=== PATIENT | female | born 1995 | race Hispanic/Latino ===

== ENCOUNTER 2018-01-14 14:55 | Emergency (ER) | payer OTHER, SELFPAY ==
[2018-01-14] MEDS ORDERED: NA CHLORIDE 0.9% 1,000 ML ONE (15:48)
[2018-01-14 16:20] LABS: Protime INR 1.02
[2018-01-14 16:21] LABS: Absolute Monocytes 0.5 K/uL (0.1-1.3); Absolute Neutrophil 6.8 K/uL (1.8-8.0); Basophils % 0.2 % (0-1.3); Eosinophils % 0.2 % (0-4.4); Hematocrit 41.5 % (36.0-45.0); Lymphocytes % 21.3 % (15.3-44.8); MCH 32.5 pg (27.0-35.0); MCV 95.4 fL (80-100); MPV 8.3 fL (7.6-11.3); Monocytes % 5.5 % (3.3-12.3); RBC Red Blood Cell Count 4.35 M/uL (3.86-4.86)
[2018-01-14 16:33] LABS: Urine Bacteria <20 /HPF (<20); Urine Culture Reflex Order NOT NEEDED; Urine Mucus LIGHT /HPF (NONE SEEN); Urine RBC <5 /HPF (NONE SEEN)
[2018-01-14 16:49] LABS: ALT/SGPT 20 U/L (12-78); AST/SGOT 14 U/L (15-37); Albumin 3.9 g/dL (3.4-5.0); Alkaline Phosphatase 55 U/L (45-117); BUN Blood Urea Nitrogen 14 mg/dL (7-18); Bicarbonate 26 mmol/L (21-32); Bilirubin Direct 0.2 mg/dL (0-0.2); Bilirubin Total 0.9 mg/dL (0.2-1.0); Glucose Level 93 mg/dL (74-106); Magnesium 2.2 mg/dL (1.8-2.4); NT PRO-BNP 40 pg/mL (<125); Protein, Total 7.4 g/dL (6.4-8.2); Sodium Level 139 mmol/L (136-145); Troponin (Emerg Dept Use Only) < 0.02 ng/mL (0.0-0.045)
[2018-01-14 16:58] LABS: Urine Blood NEGATIVE (NEG); Urine Glucose NEGATIVE (NEG); Urine Protein TRACE (NEG); Urine Specific Gravity 1.025 (1.005-1.030)
--- NOTE | 2018-01-14 17:03 | EKG ---
Test Date: 2018-01-14 Test Time: 15:33:29 Care Manager Cna: TONIE-Claude MEASUREMENT RESULTS: Intervals: Rate: 72 MI: 134 QRSD: 76 QT: 382 QTc: 418 [place]: P: 42 MI: 134 QRS: 73 T: 43 INTERPRETIVE STATEMENTS: Normal sinus rhythm with sinus arrhythmia Normal ECG No previous ECG available for comparison Electronically Signed On 01-14-18 17:03:04 CDT by Santana Fatima
--- NOTE | 2018-01-14 17:30 | RAD REPORT ---
EXAM DESCRIPTION: CT - Chest For Pe Angio - 01/14/2018 5:16 pm CLINICAL HISTORY: Chest pain, shortness of breath COMPARISON: None. TECHNIQUE: Dynamically enhanced 3 mm thick images of the chest were obtained during administration o f approximately 150mL Isovue 370 IV contrast. Coronal and oblique MIP reconstruction images were gene rated and reviewed. Exam utilizes a protocol to evaluate the pulmonary arterial tree. All CT scans are performed using dose optimization technique as appropriate and may include automated exposure control or mA/KV adjustment according to patient size. FINDINGS: No pulmonary emboli are identified. The aorta as imaged shows no acute or suspicious finding. No pericardial thickening or effusion. No infiltrate or mass in the lung parenchyma. No pleural effusion or pleural thickening. No mediastinal or hilar suspicious masses. No chest wall masses or abnormal axillary lymphadenopathy. IMPRESSION: No pulmonary emboli identified. No other significant or suspicious findings.
--- NOTE | 2018-01-14 17:40 | ER ---
Nurse's Notes [facility] Name: Nataly Sparrow Age: 23 yrs Sex: Female : 1995 Arrival Date: 01/14/2018 Time: 14:58 Bed 12 Private MD: Diagnosis: Chest pain, unspecified Presentation: 01/14 15:14 Presenting complaint: Patient states: burning and pressure in the upper chest to the mg2 neck with shortness of breath and and is continuous for 1 1/2 week already. Transition of care: patient was not received from another setting of care. Onset of symptoms was January 2018. Risk Assessment: Do you want to hurt yourself or someone else? Patient reports no desire to harm self or others. Initial Sepsis Screen: Does the patient meet any 2 criteria? No. Patient's initial sepsis screen is negative. Does the patient have a suspected source of infection? No. Patient's initial sepsis screen is negative. Care prior to arrival: None. 15:14 Method Of Arrival: Ambulatory mg2 15:14 Acuity: BELKIS 3 mg2 Triage Assessment: 15:17 General: Appears in no apparent distress. comfortable, Behavior is calm, cooperative. mg2 Pain: Complains of pain in upper chest to the neck Pain does not radiate. Pain currently is 6 out of 10 on a pain scale. Quality of pain is described as burning, aching, pressure, Pain began gradually, 1 1/2 week ago Is continuous. EENT: No signs and/or symptoms were reported regarding the EENT system. Neuro: Cardiovascular: Capillary refill < 3 seconds Patient's skin is warm and dry. Respiratory: Airway is patent Respiratory effort is even, unlabored, Respiratory pattern is regular, symmetrical. GI: No signs and/or symptoms were reported involving the gastrointestinal system. : No signs and/or symptoms were reported regarding the genitourinary system. Derm: Skin is intact, is healthy with good turgor, Skin is pink, warm \T\ dry. normal. Musculoskeletal: Circulation, motion, and sensation intact. 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 - Social history:: Smoking status: Patient uses tobacco products, last cigar was 3 days ago, Patient uses alcohol, but reports only rare drinking. - Ebola Screening: : No symptoms or risks identified at this time. Screenin:17 Abuse screen: Denies threats or abuse. Denies injuries from another. Nutritional mg2 screening: No deficits noted. Tuberculosis screening: No symptoms or risk factors identified. Fall Risk None identified. Assessment: 16:04 General: Appears in no apparent distress. comfortable, Behavior is calm, cooperative. mg2 Pain: Complains of pain in chest Pain does not radiate. Pain currently is 6 out of 10 on a pain scale. Quality of pain is described as burning, pressure, Pain began gradually, Is intermittent. Neuro: Level of Consciousness is awake, alert, obeys commands, Oriented to person, place, time, situation. Cardiovascular: Capillary refill < 3 seconds Patient's skin is warm and dry. Respiratory: Airway is patent Respiratory effort is even, unlabored, Respiratory pattern is regular, symmetrical. Respiratory: Breath sounds are clear bilaterally. in chest. GI: No signs and/or symptoms were reported involving the gastrointestinal system. : No signs and/or symptoms were reported regarding the genitourinary system. Urine is clear. EENT: No signs and/or symptoms were reported regarding the EENT system. Derm: Skin is intact, is healthy with good turgor, Skin is pink, warm \T\ dry. normal. Musculoskeletal: No signs and/or symptoms reported regarding the musculoskeletal system. Vital Signs: 15:15 BP 128 / 90; Pulse 81; Resp 17; Temp 99(O); Pulse Ox 99% on R/A; Weight 61.23 kg; mg2 Height 5 ft. 4 in. (162.56 cm); Pain 6/10; 15:15 Body Mass Index 23.17 (61.23 kg, 162.56 cm) mg2 ED Course: 14:58 Patient arrived in ED. as 15:10 Misha Springer, ASNTO is Primary Nurse. mg2 15:13 Shanti Nelson FNP-C is PHCP. snw 15:13 Cesar Amos MD is Attending Physician. snw 15:15 Triage completed. mg2 15:17 Arm band placed on. mg2 15:38 EKG done, by pharmacy technician instructor. reviewed by Shanti SHIELDS. sm3 15:43 Radiology exam delayed due to lab results not completed at this time. (BUN/Creatinine) teresita test not completed at this time. 15:50 Patient has correct armband on for positive identification. Pulse ox on. NIBP on. mg2 15:50 No provider procedures requiring assistance completed. Inserted saline lock: 20 gauge mg2 in left antecubital area, using aseptic technique. Blood collected. Patient maintains SpO2 saturation greater than 95% on room air. 16:39 Radiology exam delayed due to lab results not completed at this time. test vr not completed at this time. 17:16 CT Chest For PE Angio In Process Unspecified. EDMS 17:53 IV discontinued, intact, bleeding controlled, No redness/swelling at site. Pressure mg2 dressing applied. Administered Medications: 15:49 Drug: NS 0.9% 1000 ml Route: IV; Rate: 1 bolus; Site: left antecubital; mg2 17:52 Follow up: Response: No adverse reaction; IV Status: Completed infusion mg2 Outcome: 17:40 Discharge ordered by MD. duncan 17:53 Discharged to home ambulatory, with family. mg2 17:53 Condition: stable 17:53 Discharge instructions given to patient, family, Instructed on discharge instructions, follow up and referral plans. medication usage, Demonstrated understanding of instructions, follow-up care, medications, Prescriptions given X 1. 18:09 Patient left the ED. mg2 Signatures: Dispatcher [employer] EDME Shanti Nelson FNP-C FNP-Amparo Ramírez Victoria vr Jordan, Nathan nj Gardose, Michele, SANTO RN [facility] [place] Sarai Saab 3
--- NOTE | 2018-01-14 17:40 | EDPHYS ---
Physician Documentation [facility] Name: Nataly Sparrow Age: 23 yrs Sex: Female : 1995 Arrival Date: 01/14/2018 Time: 14:58 Bed 12 Private MD: ED Physician Cesar Amos HPI: 01/14 15:46 This 23 yrs old Female presents to ER via Ambulatory with complaints of Chest snw Pain, Neck Pain, <24hrs Old. 15:46 Onset: The symptoms/episode began/occurred gradually, 1 week(s) ago. Associated signs snw and symptoms: Pertinent positives: chest pain, shortness of breath. The patient has not experienced similar symptoms in the past. It is unknown whether or not the patient has recently seen a physician. no med changes, occasional smoker, gave 9 months ago, denies lower ext edema. 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 - Social history:: Smoking status: Patient uses tobacco products, last cigar was 3 days ago, Patient uses alcohol, but reports only rare drinking. - Ebola Screening: : No symptoms or risks identified at this time. ROS: 15:43 Eyes: Negative for injury, pain, redness, and discharge, ENT: Negative for injury, snw pain, and discharge, Neck: Negative for injury, pain, and swelling. 15:43 Abdomen/GI: Negative for abdominal pain, nausea, vomiting, diarrhea, and constipation, Back: Negative for injury and pain, : Negative for injury, bleeding, discharge, and swelling, MS/Extremity: Negative for injury and deformity, Skin: Negative for injury, rash, and discoloration, Neuro: Negative for headache, weakness, numbness, tingling, and seizure. 15:43 Constitutional: Positive for malaise. 15:43 Cardiovascular: Positive for chest pain, of the chest. 15:43 Respiratory: Positive for pleurisy. Exam: 15:43 Head/Face: Normocephalic, atraumatic. Eyes: Pupils equal round and reactive to light, snw extra-ocular motions intact. Lids and lashes normal. Conjunctiva and sclera are non-icteric and not injected. Cornea within normal limits. Periorbital areas with no swelling, redness, or edema. ENT: Nares patent. No nasal discharge, no septal abnormalities noted. Tympanic membranes are normal and external auditory canals are clear. Oropharynx with no redness, swelling, or masses, exudates, or evidence of obstruction, uvula midline. Mucous membranes moist. Neck: Trachea midline, no thyromegaly or masses palpated, and no cervical lymphadenopathy. Supple, full range of motion without nuchal rigidity, or vertebral point tenderness. No Meningismus. Chest/axilla: Normal chest wall appearance and motion. Nontender with no deformity. No lesions are appreciated. Cardiovascular: Regular rate and rhythm with a normal S1 and S2. No gallops, murmurs, or rubs. Normal PMI, no JVD. No pulse deficits. Respiratory: Lungs have equal breath sounds bilaterally, clear to auscultation and percussion. No rales, rhonchi or wheezes noted. No increased work of breathing, no retractions or nasal flaring. Abdomen/GI: Soft, non-tender, with normal bowel sounds. No distension or tympany. No guarding or rebound. No evidence of tenderness throughout. Back: No spinal tenderness. No costovertebral tenderness. Full range of motion. Skin: Warm, dry with normal turgor. Normal color with no rashes, no lesions, and no evidence of cellulitis. MS/ Extremity: Pulses equal, no cyanosis. Neurovascular intact. Full, normal range of motion. Neuro: Awake and alert, GCS 15, oriented to person, place, time, and situation. Cranial nerves II-XII grossly intact. Motor strength 5/5 in all extremities. Sensory grossly intact. Cerebellar exam normal. Normal gait. Psych: Awake, alert, with orientation to person, place and time. Behavior, mood, and affect are within normal limits. 15:43 Constitutional: The patient appears alert, awake, anxious. Vital Signs: 15:15 BP 128 / 90; Pulse 81; Resp 17; Temp 99(O); Pulse Ox 99% on R/A; Weight 61.23 kg; mg2 Height 5 ft. 4 in. (162.56 cm); Pain 6/10; 15:15 Body Mass Index 23.17 (61.23 kg, 162.56 cm) mg2 MDM: 15:16 Patient medically screened. snw 17:38 Data reviewed: vital signs, nurses notes. Data interpreted: Pulse oximetry: on room air snw is 99 %. Interpretation: normal. Counseling: I had a detailed discussion with the patient and/or guardian regarding: the historical points, exam findings, and any diagnostic results supporting the discharge/admit diagnosis, the presence of at least one elevated blood pressure reading (>120/80) during this emergency department visit, lab results, radiology results, the need for outpatient follow up, to return to the emergency department if symptoms worsen or persist or if there are any questions or concerns that arise at home. Special discussion: Based on the patient's history, exam, and Dx evaluation, there is no indication for emergent intervention or inpatient Tx. It is understood by the patient/guardian that if the Sx's persist or worsen they need to return immediately for re-evaluation. Based on the history and exam findings, there is no indication for further emergent testing or inpatient evaluation. I discussed with the patient/guardian the need to see the primary care provider for further evaluation of the symptoms. 01/14 15:33 Order name: Urine Culture snw 01/14 15:33 Order name: Urine Microscopic Only; Complete Time: 16:42 snw 01/14 15:43 Order name: Basic Metabolic Panel; Complete Time: 16:58 snw 01/14 15:43 Order name: CBC with Diff; Complete Time: 16:32 snw 01/14 15:43 Order name: LFT's; Complete Time: 16:58 snw 01/14 15:43 Order name: Magnesium; Complete Time: 16:58 snw 01/14 15:33 Order name: CT Chest For PE Angio; Complete Time: 17:37 snw 01/14 15:43 Order name: NT PRO-BNP; Complete Time: 16:58 snw 01/14 15:43 Order name: PT-INR; Complete Time: 16:32 snw 01/14 15:43 Order name: Troponin (emerg Dept Use Only); Complete Time: 16:58 snw 01/14 15:45 Order name: TSH; Complete Time: 17:06 snw 01/14 16:23 Order name: Urine Dipstick--Ancillary (enter results); Complete Time: 17:06 bd 01/14 16:23 Order name: Urine --Ancillary (enter results); Complete Time: 17:06 bd 01/14 15:33 Order name: Urine Test (obtain specimen); Complete Time: 16:03 snw 01/14 15:33 Order name: Urine Dipstick-Ancillary (obtain specimen); Complete Time: 16:03 snw 01/14 15:43 Order name: EKG; Complete Time: 15:44 snw 01/14 15:43 Order name: Cardiac monitoring; Complete Time: 16:03 snw 01/14 15:43 Order name: EKG - Nurse/Tech; Complete Time: 16:03 snw 01/14 15:43 Order name: IV Saline Lock; Complete Time: 16:03 snw 01/14 15:43 Order name: Labs collected and sent; Complete Time: 16:03 snw 01/14 15:43 Order name: O2 Per Protocol; Complete Time: 16:03 snw 01/14 15:43 Order name: O2 Sat Monitoring; Complete Time: 16:03 snw Administered Medications: 15:49 Drug: NS 0.9% 1000 ml Route: IV; Rate: 1 bolus; Site: left antecubital; mg2 17:52 Follow up: Response: No adverse reaction; IV Status: Completed infusion mg2 Disposition: 01/15 07:04 Co-signature as Attending Physician, Cesar Amos MD I agree with the assessment and poncho plan of care. Disposition: 01/14/18 17:40 Discharged to Home. Impression: Chest pain, unspecified. - Condition is Stable. - Discharge Instructions: Nonspecific Chest Pain, Gastroesophageal Reflux Disease, Adult, Hypertension. - Prescriptions for Protonix 40 mg Oral Tablet - take 1 tablet by ORAL route once daily; 30 tablet. - Work release form, Medication Reconciliation Form, Thank You Letter, Antibiotic Education, Prescription Opioid Use form. - Follow up: Private Physician; When: 2 - 3 days; Reason: Recheck today's complaints, Continuance of care, Re-evaluation by your physician. Follow up: Emergency Department; When: As needed; Reason: Worsening of condition. Signatures: Dispatcher [employer] Cesar Nation MD MD cha Therrien, Shelly, SHRINK PIT OPERATOR-C SHRINK PIT OPERATOR-Csnw Gardose, Misha, RN RN mg2 Corrections: (The following items were deleted from the chart) 01/14 18:09 17:40 01/14/2018 17:40 Discharged to Home. Impression: Chest pain, unspecified. mg2 Condition is Stable. Forms are Medication Reconciliation Form, Thank You Letter, Antibiotic Education, Prescription Opioid Use. Follow up: Private Physician; When: 2 - 3 days; Reason: Recheck today's complaints, Continuance of care, Re-evaluation by your physician. Follow up: Emergency Department; When: As needed; Reason: Worsening of condition. snw
[2018-01-14 18:22] VITALS: BP 128/90; TEMP 99; O2SAT 99
== END 2018-01-14 18:09 | disposition home or self-care (01) ==
LOC: ER 14:55
DX: R07.9 Chest pain, unspecified (principal); Z72.0 Tobacco use
CPT/HCPCS: 36415; 71275; 80048; 80076; 81003; 81015; 81025; 83735; 83880; 84443; 84484; 85025; 85610; 87086; 87088; 93005; 96360; 96361; 99284; J7030; Q9967

== ENCOUNTER 2019-02-04 19:32 | Emergency (ER) | payer SELFPAY ==
--- NOTE | 2019-02-04 20:32 | RAD REPORT ---
EXAM DESCRIPTION: RAD - Chest Single View - 02/04/2019 8:18 pm CLINICAL HISTORY: Chest pain COMPARISON: None. TECHNIQUE: AP portable chest image was obtained 2015 hours . FINDINGS: Lungs are clear. Heart and vasculature are normal. No measurable pleural effusion and no p neumothorax. No acute bony abnormality seen. No acute aortic findings suspected. IMPRESSION: No acute cardiopulmonary process.
[2019-02-04] MEDS ORDERED: LORAZEPAM 1 MG TABLET ONE (20:33)
[2019-02-04 20:44] LABS: Barbiturates POSITIVE (NEGATIVE); Benzodiazepines NEGATIVE (NEGATIVE); Cocaine NEGATIVE (NEGATIVE); METHAMPHETAM NEGATIVE (NEGATIVE); Methadone NEGATIVE (NEGATIVE); Opiates NEGATIVE (NEGATIVE); Phencyclidine NEGATIVE (NEGATIVE); THC Cannibis NEGATIVE (NEGATIVE)
[2019-02-04 20:44] LABS: Absolute Lymphocytes (CBC) 2.7 K/uL (0.7-4.9); Basophils % 0.5 % (0-1.3); Hematocrit 41.1 % (36.0-45.0); Lymphocytes % 26.6 % (15.3-44.8); MPV 8.1 fL (7.6-11.3); Protime INR 1.05; RBC Red Blood Cell Count 4.39 M/uL (3.86-4.86)
[2019-02-04 20:58] LABS: ALT/SGPT 37 U/L (12-78); AST/SGOT 17 U/L (15-37); Albumin 4.2 g/dL (3.4-5.0); Alkaline Phosphatase 79 U/L (45-117); BUN Blood Urea Nitrogen 14 mg/dL (7-18); Bicarbonate 22 mmol/L (21-32); Bilirubin Direct 0.1 mg/dL (0-0.2); Bilirubin Total 0.4 mg/dL (0.2-1.0); Glucose Level 108 mg/dL (74-106); Magnesium 1.8 mg/dL (1.8-2.4); NT PRO-BNP 8 pg/mL (<125); Potassium 3.4 mmol/L (3.5-5.1); Sodium Level 140 mmol/L (136-145); Troponin (Emerg Dept Use Only) < 0.02 ng/mL (0.0-0.045)
--- NOTE | 2019-02-04 21:44 | ER ---
Nurse's Notes [facility] Name: Nataly Sparrow Age: 24 yrs Sex: Female : 1995 Arrival Date: 02/04/2019 Time: 19:34 Bed 4 Private MD: Diagnosis: Anxiety disorder, unspecified;Cellulitis of abdominal wall;Migraine, unspecified Presentation: 02/04 19:35 Presenting complaint: Patient states: "I've been having intermittent headaches since 2 cc3 weeks. Today I started to feel funny, I begin to have chest heaviness that started at 1200H this afternoon and both of my hands and feet have sharp tingling sensation since I got off from work at 4PM. I also got this wound on my right lower abdomen which I am not sure of if it's an insect bite" Patient denies weakness. Transition of care: patient was not received from another setting of care. Onset of symptoms was February 04, 2019. Risk Assessment: Do you want to hurt yourself or someone else? Patient reports no desire to harm self or others. Initial Sepsis Screen: Does the patient meet any 2 criteria? HR > 90 bpm. No. Patient's initial sepsis screen is negative. Does the patient have a suspected source of infection? Yes: Skin breakdown/wound. Care prior to arrival: None. 19:35 Method Of Arrival: Wheelchair cc3 19:35 Acuity: BELKIS 3 cc3 Triage Assessment: 19:35 General: Appears in no apparent distress. uncomfortable, Behavior is cooperative, cc3 anxious. Pain: Complains of pain in head, chest. Cardiovascular: Reports chest pain, since 1200H this afternoon. 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 - Social history:: Smoking status: Patient uses tobacco products, denies chronic smoking, but will smoke occasionally. - Ebola Screening: : No symptoms or risks identified at this time. Screenin:35 Abuse screen: Denies threats or abuse. Denies injuries from another. Nutritional cc3 screening: No deficits noted. Tuberculosis screening: No symptoms or risk factors identified. Fall Risk Ambulatory Aid- None/Bed Rest/Nurse Assist (0 pts). Gait- Normal/Bed Rest/Wheelchair (0 pts) Mental Status- Oriented to own ability (0 pts). Assessment: 20:02 General: Appears in no apparent distress. uncomfortable, Behavior is cooperative, jd3 appropriate for age, anxious, restless. Pain: Complains of pain in head Pain does not radiate. Quality of pain is described as pressure, sharp, throbbing, Pain began 2-3 days ago. Neuro: Level of Consciousness is awake, alert, obeys commands, Oriented to person, place, time, situation, Supervisor Of Officials are equal bilaterally Moves all extremities. Full function Gait is steady, Speech is normal, Facial symmetry appears normal, Pupils are PERRLA, Intact. Cardiovascular: Denies chest pain, Heart tones S1 S2 present Capillary refill < 3 seconds Patient's skin is warm and dry. Respiratory: Airway is patent Respiratory effort is even, unlabored, Respiratory pattern is symmetrical, tachypnea Breath sounds are clear bilaterally. Denies cough, shortness of breath. GI: Abdomen is round non-distended, Bowel sounds present X 4 quads. Abd is soft and non tender X 4 quads. Reports nausea, recent spider bite to right lower abdomen. : No signs and/or symptoms were reported regarding the genitourinary system. EENT: No signs and/or symptoms were reported regarding the EENT system. Derm: Skin is intact, Skin is dry, Skin is normal, Skin temperature is warm. Musculoskeletal: Circulation, motion, and sensation intact. Range of motion: intact in all extremities. 20:36 Reassessment: Patient appears in no apparent distress at this time. No changes from jd3 previously documented assessment. Patient and/or family updated on plan of care and expected duration. Pain level reassessed. Patient is alert, oriented x 3, equal unlabored respirations, skin warm/dry/pink. 21:22 Reassessment: Patient appears in no apparent distress at this time. Patient and/or jd3 family updated on plan of care and expected duration. Pain level reassessed. Patient is alert, oriented x 3, equal unlabored respirations, skin warm/dry/pink. pt reports less anxiety, reports continued head pain, provider notified, no new orders at this time. 22:55 Reassessment: Patient appears in no apparent distress at this time. Patient and/or jd3 family updated on plan of care and expected duration. Pain level reassessed. Patient is alert, oriented x 3, equal unlabored respirations, skin warm/dry/pink. report continued pain, provider notified, awaiting provider to discharge pt. 23:12 Reassessment: Patient appears in no apparent distress at this time. Patient and/or jd3 family updated on plan of care and expected duration. Pain level reassessed. Patient is alert, oriented x 3, equal unlabored respirations, skin warm/dry/pink. reported understanding of discharge instructions. Vital Signs: 19:35 BP 146 / 95; Pulse 108; Resp 20 S; Temp 98.3(O); Pulse Ox 100% on R/A; Weight 69.85 kg cc3 (R); Height 5 ft. 4 in. (162.56 cm) (R); Pain 8/10; 20:36 Pulse 73; Resp 16 S; Pulse Ox 98% on R/A; jd3 21:24 BP 125 / 82; Pulse 62; Resp 17 S; Pulse Ox 100% on R/A; Pain 8/10; jd3 23:13 BP 122 / 72; Pulse 72; Resp 17 S; Pulse Ox 100% on R/A; jd3 19:35 Body Mass Index 26.43 (69.85 kg, 162.56 cm) cc3 ED Course: 19:34 Patient arrived in ED. cf2 19:35 Arm band placed on right wrist. cc3 19:36 Ventura Renteria MD is Attending Physician. tw4 19:54 Triage completed. cc3 20:02 Jatin Bell, SANTO is Primary Nurse. jd3 20:09 Patient has correct armband on for positive identification. Placed in gown. Bed in low jd3 position. Call light in reach. Side rails up X 1. Adult w/ patient. campus monitor on. Pulse ox on. NIBP on. 20:09 Patient maintains SpO2 saturation greater than 95% on room air. jd3 20:16 XRAY Chest (1 view) In Process Unspecified. EDMS 20:30 Inserted saline lock: 22 gauge in right forearm, using aseptic technique. Blood oe collected. 22:56 No provider procedures requiring assistance completed. jd3 23:13 IV discontinued, intact, bleeding controlled, No redness/swelling at site. Pressure jd3 dressing applied. Administered Medications: 20:36 Drug: Ativan 1 mg Route: PO; jd3 21:30 Follow up: Response: No adverse reaction jd3 Outcome: 21:43 Discharge ordered by . echo 23:12 Discharged to home ambulatory, with family. jd3 23:12 Condition: stable 23:12 Discharge instructions given to patient, family, Instructed on discharge instructions, follow up and referral plans. medication usage, Demonstrated understanding of instructions, follow-up care, medications, Prescriptions given X 3. 23:14 Patient left the ED. jd3 Signatures: Dispatcher [employer] EDMS Shaka Wick Jonathon, RN RN jd3 Ventura Renteria MD MD tw4 Aby Pierre 3 Brian Hernandez cf2 Corrections: (The following items were deleted from the chart) 21:27 21:24 BP 120 / 79; Pulse 62bpm; Resp 17bpm; Spontaneous; Pulse Ox 100% RA; Pain 8/10; jd3 jd3
--- NOTE | 2019-02-04 21:44 | EDPHYS ---
Physician Documentation [facility] Name: Nataly Sparrow Age: 24 yrs Sex: Female : 1995 Arrival Date: 02/04/2019 Time: 19:34 Bed 4 Private MD: ED Physician Ventura Renteria HPI: 02/04 21:26 This 24 yrs old Female presents to ER via Wheelchair with complaints of Chest tw4 Pain. 21:26 The patient or guardian reports chest pain that is located primarily in the anterior tw4 chest wall. The pain does not radiate. The chest pain is described as sharp. Duration: The patient or guardian reports a single episode. Modifying factors: Pertinent positives: anxiety, lightheadedness, The symptoms are alleviated by nothing. the symptoms are aggravated by nothing. Severity of pain: At its worst the pain was mild in the emergency department the pain is unchanged. The patient has not experienced similar symptoms in the past. [employer]: 22:56 LMP N/A - Irregular menses jd3 Historical: - Allergies: 19:35 No Known Allergies; cc3 - PMHx: 19:35 None; cc3 - PSHx: 19:35 None; cc3 - Immunization history:: Adult Immunizations not up to date. - Social history:: Smoking status: Patient uses tobacco products, denies chronic smoking, but will smoke occasionally. - Ebola Screening: : No symptoms or risks identified at this time. ROS: 21:26 Constitutional: Negative for fever, chills, and weight loss, Eyes: Negative for injury, tw4 pain, redness, and discharge, Respiratory: Negative for shortness of breath, cough, wheezing, and pleuritic chest pain, Abdomen/GI: Negative for abdominal pain, nausea, vomiting, diarrhea, and constipation, Back: Negative for injury and pain, MS/Extremity: Negative for injury and deformity. 21:26 Cardiovascular: Positive for chest pain, Negative for edema, orthopnea, palpitations, paroxysmal nocturnal dyspnea. Exam: 21:26 Constitutional: This is a well developed, well nourished patient who is awake, alert, tw4 and in no acute distress. Head/Face: Normocephalic, atraumatic. Chest/axilla: Normal chest wall appearance and motion. Nontender with no deformity. No lesions are appreciated. Cardiovascular: Regular rate and rhythm with a normal S1 and S2. No gallops, murmurs, or rubs. Normal PMI, no JVD. No pulse deficits. Respiratory: Lungs have equal breath sounds bilaterally, clear to auscultation and percussion. No rales, rhonchi or wheezes noted. No increased work of breathing, no retractions or nasal flaring. Abdomen/GI: Soft, non-tender, with normal bowel sounds. No distension or tympany. No guarding or rebound. No evidence of tenderness throughout. Back: No spinal tenderness. No costovertebral tenderness. Full range of motion. MS/ Extremity: Pulses equal, no cyanosis. Neurovascular intact. Full, normal range of motion. Neuro: Awake and alert, GCS 15, oriented to person, place, time, and situation. Cranial nerves II-XII grossly intact. Motor strength 5/5 in all extremities. Sensory grossly intact. Cerebellar exam normal. Normal gait. Vital Signs: 19:35 BP 146 / 95; Pulse 108; Resp 20 S; Temp 98.3(O); Pulse Ox 100% on R/A; Weight 69.85 kg cc3 (R); Height 5 ft. 4 in. (162.56 cm) (R); Pain 8/10; 20:36 Pulse 73; Resp 16 S; Pulse Ox 98% on R/A; jd3 21:24 BP 125 / 82; Pulse 62; Resp 17 S; Pulse Ox 100% on R/A; Pain 8/10; jd3 23:13 BP 122 / 72; Pulse 72; Resp 17 S; Pulse Ox 100% on R/A; jd3 19:35 Body Mass Index 26.43 (69.85 kg, 162.56 cm) cc3 MDM: 19:37 Patient medically screened. 02/04 19:53 Order name: Basic Metabolic Panel; Complete Time: 21:24 02/04 21:24 Interpretation: Normal except: K 3.4; GLUC 108; GFR 86. 02/04 19:53 Order name: CBC with Diff; Complete Time: 21:24 02/04 21:25 Interpretation: Within normal limits. 02/04 19:53 Order name: LFT's; Complete Time: 21:24 02/04 21:24 Interpretation: Normal except: GLOB 3.8. 30 19:53 Order name: Magnesium; Complete Time: 21:24 [facility] 02/04 21:25 Interpretation: Within normal limits: MG 1.8. [facility] 02/04 19:53 Order name: NT PRO-BNP; Complete Time: 21:24 [facility] 02/04 21:25 Interpretation: Within normal limits: NT PRO-BNP 8. [facility] 02/04 19:53 Order name: PT-INR; Complete Time: 21:24 [facility] 02/04 21:25 Interpretation: Within normal limits: PT 12.4. [facility] 02/04 19:53 Order name: Troponin (emerg Dept Use Only); Complete Time: 21:24 [facility] 02/04 19:53 Order name: XRAY Chest (1 view); Complete Time: 21:24 [facility] 02/04 19:53 Order name: EKG; Complete Time: 19:54 [facility] 02/04 19:53 Order name: Cardiac monitoring; Complete Time: 20:09 [facility] 02/04 19:53 Order name: Urine Drug Screen; Complete Time: 21:24 [facility] 02/04 21:25 Interpretation: Normal except. [facility] 02/04 20:22 Order name: Urine Dipstick--Ancillary (enter results) [facility] 02/04 20:22 Order name: Urine --Ancillary (enter results) [facility] 02/04 19:53 Order name: EKG - Nurse/Tech; Complete Time: 20:09 [facility] 02/04 19:53 Order name: IV Saline Lock; Complete Time: 20:30 [facility] 02/04 19:53 Order name: Labs collected and sent; Complete Time: 20:30 [facility] 02/04 19:53 Order name: O2 Per Protocol; Complete Time: 20:09 [facility] 02/04 19:53 Order name: O2 Sat Monitoring; Complete Time: 20:09 [facility] Administered Medications: 20:36 Drug: Ativan 1 mg Route: PO; jd3 21:30 Follow up: Response: No adverse reaction jd3 Disposition: 02/04/19 21:43 Discharged to Home. Impression: Anxiety disorder, unspecified, Cellulitis of abdominal wall, Migraine, unspecified. - Condition is Stable. - Discharge Instructions: Panic Attacks, Cellulitis, Adult, Migraine Headache, Social Anxiety Disorder, Panic Attacks, [id number], Generalized Anxiety Disorder. - Prescriptions for Ativan 0.5 mg Oral Tablet - take 1 tablet by ORAL route every 8 hours As needed; 5 tablet. Cleocin 300 mg Oral Capsule - take 1 capsule by ORAL route every 6 hours for 10 days; 40 capsule. Fiorinal 50- 325-40 mg Oral Capsule - take 1 capsule by ORAL route every 4 hours As needed - not to exceed 6 capsules per day; 20 capsule. - Medication Reconciliation Form, Thank You Letter, Antibiotic Education, Prescription Opioid Use form. - Follow up: Private Physician; When: Upon discharge from the Emergency Department; Reason: Recheck today's complaints, Continuance of care. - Problem is new. - Symptoms have improved. Signatures: Dispatcher [employer] EDMS Jatin Bell RN RN jd3 Ventura Renteria MD MD tw4 Aby Pierre cc3 Corrections: (The following items were deleted from the chart) 23:07 21:43 02/04/2019 21:43 Discharged to Home. Impression: Anxiety disorder, unspecified. tw4 Condition is Stable. Forms are Medication Reconciliation Form, Thank You Letter, Antibiotic Education, Prescription Opioid Use. Follow up: Private Physician; When: Upon discharge from the Emergency Department; Reason: Recheck today's complaints, Continuance of care. Problem is new. Symptoms have improved. tw4 23:14 23:07 02/04/2019 21:43 Discharged to Home. Impression: Anxiety disorder, unspecified; jd3 Cellulitis of abdominal wall; Migraine, unspecified. Condition is Stable. Discharge Instructions: Panic Attacks, Social Anxiety Disorder, Panic Attacks, [id number], Generalized Anxiety Disorder. Prescriptions for Ativan 0.5 mg Oral Tablet - take 1 tablet by ORAL route every 8 hours As needed; 5 tablet. and Forms are Medication Reconciliation Form, Thank You Letter, Antibiotic Education, Prescription Opioid Use. Follow up: Private Physician; When: Upon discharge from the Emergency Department; Reason: Recheck today's complaints, Continuance of care. Problem is new. Symptoms have improved. tw4
[2019-02-04 21:51] LABS: Urine Blood TRACE (NEG); Urine Glucose NEGATIVE (NEG); Urine Protein NEGATIVE (NEG); Urine Specific Gravity 1.025 (1.005-1.030)
[2019-02-04 23:36] VITALS: O2SAT 100
[2019-02-04 23:37] VITALS: TEMP 98.3
[2019-02-04 23:38] VITALS: BP 122/72
--- NOTE | 2019-02-05 09:58 | EKG ---
Test Date: 2019-02-04 Test Time: 20:01:47 Hvac Mechanical Engineer: IAN MEASUREMENT RESULTS: Intervals: Rate: 82 HI: 142 QRSD: 82 QT: 366 QTc: 427 [place]: P: 66 HI: 142 QRS: 91 T: 40 INTERPRETIVE STATEMENTS: Normal sinus rhythm with sinus arrhythmia Rightward axis Borderline ECG Compared to ECG 01/14/2018 15:33:29 Right-axis deviation now present Electronically Signed On 02-05-19 09:57:10 CDT by Hans Camarena
== END 2019-02-04 23:14 | disposition home or self-care (01) ==
LOC: ER 19:32
DX: F41.9 Anxiety disorder, unspecified (principal); L03.311 Cellulitis of abdominal wall; G43.909 Migraine, unspecified, not intractable, without status migrainosus; Z72.0 Tobacco use
CPT/HCPCS: 36415; 71045; 80048; 80076; 80307; 81003; 81025; 83735; 83880; 84484; 85025; 85610; 93005; 99285

== ENCOUNTER 2021-09-29 19:34 | Inpatient (IN) | payer OTHER, SELFPAY ==
--- OUTSIDE RECORDS SUMMARY | 2021-09-29 19:39 | XMS REPORT | Continuity of Care Document ---
:1995 Author Organization [facility] t Address [address] [place] [address] Care Team Providers Name Role Phone WALT RODRIGUEZ Attending Clinician Unavailable LAB90 Attending Clinician Unavailable Walt Rodriguez MD Attending Clinician Yunier DORADOP, B Attending Clinician Doctor Unassigned, Name Attending Clinician Unavailable Aníbal HEARD Attending Clinician ANÍBAL Attending Clinician Unavailable Aníbal HEARD Admitting Clinician ANÍBAL Admitting Clinician Unavailable Payers Payer Name Policy Type Policy Number Effective Date Expiration Date S ource Problems Condition Condition Condition Status Onset Resolution Last Treating Co mments Source Name Details Category Date Date Treatment Clinician Date History of History of Disease Active K elsey gestationa gestationa 2-08 Se ybold l diabetes l diabetes 00:00: 00 Cervical Cervical Disease Active Kelse y high risk high risk 7-06 Seyb old HPV (human HPV (human 00:00: papillomav papillomav 00 irus) test irus) test positive positive Cervical Cervical Disease Active Overview: Estiven ramirezey cancer cancer 6-15 Formattin Seybold screening screening 00:00: g of this 00 note might be different from the original. Formattin g of this note might be different from the original. OSH:Pap in abnormalp ostpartum normal and HPV positive2 018 Colpo cx bx negativeN o follow upWSH:6/2 0 Negative, HPV 16 positiveP regant, f/u PP2/21 Colposcop y cx bx VIJAYA 1 ECC VIJAYA 1HPV vaccine [ ]F/u pap in 1 year. PRASANNA SORENSEN MD High-risk High-risk Disease Active Mahamed sey 6-15 Seyb old 00:00: 00 Rubella Rubella Disease Active Univers immune immune 2-24 ity of 00:00: [place] [address] [place] [address] Branch Maternal Maternal Disease Active Unive rs varicella, varicella, 2-24 it y of non-immune non-immune 00:00: [place] [facility] Branch Chlamydia Chlamydia Disease Active Uni vers trachomati trachomati 2-24 it y of s s 00:00: [place] infection infection 00 Medi jesus of lower of lower Branch genitourin genitourin julieta sites julieta sites Supervisio Supervisio Disease Active U nivers n of n of 2-20 ity of normal normal 00:00: [place] 00 Medi jesus Branch Pelvic Pelvic Disease Active Univers cramping cramping 2-20 ity of in in 00:00: [place] antepartum antepartum 00 Me dical period period Branch Allergies, Adverse Reactions, Alerts Allergy Allergy Status Severity Reaction(s) Onset Inactive Treating Comm ents Source Name Type Date Date Clinician NO KNOWN Drug Active Univers ALLERGIE Class ity of S [facility] Social History Social Habit Start Date Stop Date Quantity Comments Source ASSERTION 2019-08-02 University of 00:00:00 [facility] History SDOH Krysten reeder Alcohol Std Drinks History SDOH Krysten reeder Alcohol Binge History SDOH Krysten reeder Alcohol Comment Exposure to Not sure Krysten araiza SARS-CoV-2 (event) History of Cigarette Smoker Krysten cuevas tobacco use Alcohol intake 2020-12-26 2020-12-26 Ex-drinker Krysten august 00:00:00 00:00:00 (finding) Tobacco use and 2020-09-22 2020-09-22 Smokeless tobacco Ke jeanna Servinybold exposure 00:00:00 00:00:00 non-user History SDOH 2020-09-22 2020-09-22 1 Krysten reeder Alcohol Frequency 00:00:00 00:00:00 Tobacco Comment 2013-05-28 2013-05-28 Smoker for 5-6 Unive rsity of 00:00:00 00:00:00 months [facility] Sex Assigned At [birth year] Krysten henderson 00:00:00 00:00:00 Smoking Status Start Date Stop Date Source Former smoker 2020-08-30 00:00:00 2020-08-30 00:00:00 [facility] Medications Ordered Filled Start Stop Current Ordering Indication Dosage Frequency Signature Comments Components Source Medication Medication Date Date Medication? Clinician (SIG) Name Name FOLIC ACID Yes Take by Ila ey OR 9-20 mouth Seybold 13:37: 31 Ascorbic Yes Take by Krysten Acid 9-20 mouth Seybold (VITAMIN C 13:37: OR) 31 ketorolac 2020- No 15mg 15 mg, Unive rs (TORADOL) 5-25 05-25 Slow IV ity of injection 19:30: 18:35 Push, [place] 15 mg 00 :00 ONCE, 1 Medical dose, [facility] 08/30/20 at 1430, KATIE
Fa culty member approving Restricted medication : JENN MANRIQUE diphenhydrA 2020- No 25mg 25 mg, Uni vers MINE 5-25 05-25 Slow IV ity of (BENADRYL) 19:30: 18:32 Push, [place] injection 00 :00 ONCE, 1 Medical 25 mg dose, [facility] 08/30/20 at 1430, STAT metoclopram 2020- No 10mg 10 mg, Uni vers rufino HCl 5-25 05-25 Slow IV ity of (REGLAN) 19:30: 18:32 Push, [place] injection 00 :00 ONCE, 1 Medical 10 mg dose, [facility] 08/30/20 at 1430, KATIE iopamidol 2020- No [id number] 120mL 120 mL, Univers (ISOVUE 5-25 05-25 Intravenou ity o f 370-500 mL) 19:06: 19:06 s, ONCE, 1 [place] injection 00 :00 dose, [facility] Medic al 120 mL 08/30/20 at Branch 1415, Routine NaCl 0.9% 2020- No 1000mL at 999 Uni vers (NS) bolus 5-25 05-25 mL/hr, ity of infusion 18:30: 19:45 1,000 mL, Mushtaq as 1,000 mL 00 :00 IV Medical Infusion, Branch ONCE, 1 dose, 08/30/20 at 1330, KATIE ondansetron Yes [id number] 4mg Take 1 Univers 4 mg 5-25 tablet by ity of disintegrat 00:00: mouth [place] ing tablet 00 every 8 Medica l (eight) Branch hours as needed for Nausea and Vomiting (N/V). dicyclomine Yes [id number] 10mg Take 1 Univers 10 mg 5-25 capsule by ity of capsule 00:00: mouth 4 [place] 00 (four) Medical times Branch daily as needed for Abdominal pain. butalbital2018-04 Yes [id number] 1{tbl} Take 1 Univers acetaminoph 0-15 tablet by ity of en-caff 00:00: mouth [place] 50-325-40 00 every 6 Medical mg tablet (six) Branch hours as needed (Headache) . butalbital2018-04 Yes [id number] 1{tbl} Take 1 Univers acetaminoph 0-15 tablet by ity of en-caff 00:00: mouth [place] 50-325-40 00 every 6 Medical mg tablet (six) Branch hours as needed (Headache) . butalbital2018-04 Yes [id number] 1{tbl} Take 1 Univers acetaminoph 0-15 tablet by ity of en-caff 00:00: mouth [place] 50-325-40 00 every 6 Medical mg tablet (six) Branch hours as needed (Headache) . butalbital2018-04 Yes [id number] 1{tbl} Take 1 Univers acetaminoph 0-15 tablet by ity of en-caff 00:00: mouth [place] 50-325-40 00 every 6 Medical mg tablet (six) Branch hours as needed (Headache) . butalbital2018-04 Yes [id number] 1{tbl} Take 1 Univers acetaminoph 0-15 tablet by ity of en-caff 00:00: mouth [place] 50-325-40 00 every 6 Medical mg tablet (six) Branch hours as needed (Headache) . 2013- Yes [id number] 1{tbl} Take 1 Tab Univers multivitami 2-20 by mouth ity of n ( 00:00[place]. [place] VITAMIN) 00 Medical tablet [place] Yes [id number] 1{tbl} Take 1 Tab Univers multivitami 2-20 by mouth ity of n ( 00:00[place]. [place] VITAMIN[place] 00 Medical tablet [place] Yes [id number] 1{tbl} Take 1 Tab Univers multivitami 2-20 by mouth ity of n ( 00:00: [place]. [place] VITAMIN) 00 Medical tablet [place] Yes [id number] 1{tbl} Take 1 Tab Univers multivitami 2-20 by mouth ity of n ( 00:00: [place]. [place] VITAMIN) 00 Medical tablet [place] Yes [id number] 1{tbl} Take 1 Tab Univers multivitami 2-20 by mouth ity of n ( 00:00[place]. [place] VITAMIN[place] 00 [facility] Immunizations Ordered Filled Immunization Date Status Comments [facility] e Immunization Name Name Tdap- (Boostrix, 2020-02-01 Completed Krysten cuevas Adacel) 00:00:00 Influenza Virus 2019-12-15 Completed Krysten henderson Vaccine, No 00:00:00 Preserv, age 6 months and up Tdap- (Boostrix, 2017-04-02 Completed Krysten cuevas Adacel) 00:00:00 Influenza Virus 2013-05-28 Completed Universit y of Vaccine (3+ yrs) 00:00:00 [facility] Influenza Virus 2013-05-28 Completed Universit y of Vaccine (3+ yrs) 00:00:00 [facility] Influenza Virus 2013-05-28 Completed Universit y of Vaccine (3+ yrs) 00:00:00 [facility] Influenza Virus 2013-05-28 Completed Universit y of Vaccine (3+ yrs) 00:00:00 [facility] Influenza Virus 2013-05-28 Completed Universit y of Vaccine (3+ yrs) 00:00:00 [facility] Influenza, 2013-05-28 Saud Guajardo Seasonal, 00:00:00 Injectable Vital Signs Vital Name Observation Time Observation Value Comments Source Diastolic blood 2020-12-26 18:32:00 64 mm[Hg] Preet Guajardo pressure Heart rate 2020-12-26 18:32:00 78 /min Krysten cuevas Body temperature 2020-12-26 18:32:00 36.17 Nata Ila Guajardo Respiratory rate 2020-12-26 18:32:00 16 /min Ila Guajardo Body height 2020-12-26 18:32:00 162.6 cm Krysten cuevas Body weight 2020-12-26 18:32:00 89.177 kg Krysten cuevas BMI 2020-12-26 18:32:00 33.75 kg/m2 Krysten cuevas Systolic blood 2020-12-26 18:32:00 104 mm[Hg] Krysten Guajardo pressure Systolic blood 2020-08-30 19:00:00 107 mm[Hg] Univer sity of [facility] Branch Diastolic blood 2020-08-30 19:00:00 71 mm[Hg] Unive rsity of [facility] Heart rate 2020-08-30 19:00:00 66 /min Universi ty [facility] [place] Respiratory rate 2020-08-30 19:00:00 18 /min Univ ersity of [facility] Oxygen saturation in 2020-08-30 19:00:00 97 /min University of Arterial blood by [place] [facility] Pulse oximetry Branch Body temperature 2020-08-30 17:57:00 37.06 Nata [facility] ersity of [facility] Body weight 2020-08-30 12:00:00 81.647 kg Universi ty [facility] BMI 2020-08-30 12:00:00 30.90 [facility] Systolic blood 2020-04-04 04:00:00 118 mm[Hg] Univer sity of pressure [facility] Branch Diastolic blood 2020-04-04 04:00:00 70 mm[Hg] Unive rsity of pressure [facility] Heart rate 2020-04-04 04:00:00 90 /min Universi ty [facility] Oxygen saturation in 2020-04-04 04:00:00 99 /min University of Arterial blood by [place] [facility] jesus Pulse oximetry Branch Body temperature 2020-04-04 03:10:00 37 Nata Univ ersity of [facility] Branch Respiratory rate 2020-04-04 03:10:00 20 /min Univ ersity of [facility] Body height 2020-04-04 03:10:00 162.6 cm [facility] Body weight 2020-04-04 03:10:00 94.802 kg [facility] BMI 2020-04-04 03:10:00 35.87 kg/m2 [facility] Procedures Procedure Date / Time Performing Clinician Source Performed CT ABDOMEN PELVIS W 2020-08-30 19:12:01 Ba Faye [facility] CONTRAST [facility] US GALL BLADDER 2020-08-30 18:45:11 Ba Faye [facility] LIPASE 2020-08-30 18:02:00 [place] [facility] COMP. METABOLIC PANEL 2020-08-30 18:02:00 Jenn Manrique [facility] ([id number]) [facility] CBC WITH DIFF 2020-08-30 18:02:00 [facility] [place] [facility] URINALYSIS 2020-08-30 18:02:00 [facility] [place] [facility] POCT TEST 2020-08-30 18:02:00 Jenn Manrique [facility] COVID-19 (ID NOW RAPID 2020-08-30 18:02:00 Jenn Manrique [facility] TESTING) [facility] Branch NOTICE OF PRIVACY 2020-08-30 17:47:49 Doctor Unassigned, No [facility] PRACTICES [facility] Medical Branch CONSENT/REFUSAL FOR 2020-08-30 17:47:37 Doctor Unassigned, No [facility] Name Medical Branch ASSIGNMENT OF BENEFITS 2020-04-04 02:52:52 Doctor Unassigned, No [facility] Medical Branch CONSENT/REFUSAL FOR 2020-04-04 02:51:37 [facility] Un[facility]igned, [facility] Name Medical Branch AUTHORIZATION FOR 2019-05-18 06:01:00 Doctor Unassigned, No [facility] RELEASE OF PHI Name Medical Branch Encounters Start End Encounter Admission Attending Care Care Encounter Source Date/Time Date/Time Type Type Clinicians Facility Department ID 2020-12-27 2020-12-27 Outpatient KRYSTEN RODRIGUEZ [id number] Krysten 00:00:00 00:00:00 KATIUSKA araiza 2020-12-26 2020-12-26 Outpatient LAB90 KRYSTEN FOLEY [id number] Krysten 14:30:00 14:30:00 Treeol teodora 2020-12-26 2020-12-26 Pre-surgic Wilfrido Rodriguez [id number] Krysten 13:28:40 13:58:40 al Risk Katiuskatim Whitfield [id number] Se ybold Assessment Somogyi 1.2.7.2.686 [id number] 2020-08-30 2020-08-30 Emergency [facility] [id number] Univers 12:49:00 14:57:00 Bajennie Galeana [id number] i ty of [place] 4.2.7.2.686 [facility] [id number] [place] [id number] [place] 2020-08-30 2020-08-30 Emergency X [facility] ERT [id number] Univers 12:49:00 12:49:00 ity [facility] 2020-08-30 2020-08-30 Orders Doctor EMETERIO [id number] Univers 00:00:00 00:00:00 Only Unassigned, CESIA [id number] ity of [place] [facility] 4.2.7.2.686 Mushtaq as [id number] [facility] 009 Branch 2020-04-03 2020-04-03 Hospital Aníbal Morris [facility] [id number] Univers 20:52:00 22:20:00 Encounter Lissett [id number] ity of [place] 4.2.7.2.686 [facility] [id number] [facility] 083 Branch 2020-04-03 2020-04-03 Outpatient P MORRIS OLIVARES [facility] MARY ALICE [id number] Univers 20:52:00 20:52:00 ity [facility] 2020-04-03 2020-04-03 Orders Doctor STORM 1.2.840.114 [id number] Univers 00:00:00 00:00:00 Only Unassigned, CESIA 350.1.13.10 ity of [place] [facility] 4.2.7.2.686 Mushtaq as [id number] [place] [address] Branch 2019-05-18 2019-05-18 Orders Doctor EMETERIO 1.2.840.114 [id number] Univers 00:00:00 00:00:00 Only Unassigned, CESIA 350.1.13.10 ity of [place] [facility] 4.2.7.2.686 Mushtaq as [id number] [place] [address] Branch Results Test Test Test Results Result Source Description Time Comments Comments CT ABDOMEN 2020-08 CT Abdomen and Pelvis with Big Arm PELVIS W -25 intravenous contrast. [facility] CONTRAST 19:22:3 HISTORY: Acute Abdominal pain. Medical 1 DOSE: Up-to-date CT equipment Branch and radiation dose reduction techniques wereemployed. CTDIvol: 9.61 mGy. DLP: 484 mGy-cm. TECHNIQUE : Contiguous axial imaging from the level of the lung basesthrough the pubic symphysis were performed after the uncomplicatedadministration of Omnipaque contrast material. ?Coronal and sagittalreconstructions were obtained. Auto mA and/or iterative reconstruction wereused to reduce radiation dose. FINDINGS: ? Lower lungs: Clear. No pleural effusion or pericardial effusion. Nodefinite sign of hiatal hernia. Liver, Gallbladder and Spleen: Liver is 14.7 cm in length with prominentleft lobe. Spleen is 10 x 3.5 cm. No focal lesions detected in the liver reinier the spleen. No calcified gallstones. Biliary ducts and the pancreaticduct appear of normal size. 13 mm accessory splenule noted near the loweredge of the hilum of the spleen. Peritoneum: ?No free air or free fluid. No lymphadenopathy. Pancreas and Adrenals: ?Unremarkable pancreas and adrenal glands. Kidneys and Ureters: ?No visible calculi in the renal collecting systems. No hydroureter or hydronephrosis. Vessels: Normal. Patent hepatic/portal venous circulation and renal veins.2 right renal arteries and 2 left renal artery is noted arising from theabdominal aorta. Retroperitoneum: No abnormal fluid or lymphadenopathy. Bowel: No acute findings. Normal appendix is visualized. Bladder and Reproductive Organs: IUD appears to be in good position withinthe uterus. Cystic lesions are seen in both adnexa, ranging from 15 mm orsmaller in size, consistent with physiologic changes. Grossly unremarkableunder distended and unopacified urinary bladder. Bones: Unremarkable. Soft tissues: Unremarkable. CONCLUSION: No acute intra-abdominal or pelvic abnormalities detected. [facility], Radiant Results Inft User - 08/30/2020 2:23 PM CDTCT Abdomen and Pelvis with intravenous contrast.CLINICAL HISTORY: Acute Abdominal pain.DOSE: Up-to-date CT equipment and radiation dose reduction techniques wereemployed. CTDIvol: 9.61 mGy. DLP: 484 mGy-cm.TECHNIQUE : Contiguous axial imaging from the level of the lung basesthrough the pubic symphysis were performed after the uncomplicatedadministration of Omnipaque contrast material. Coronal and sagittalreconstructions were obtained. Auto mA and/or iterative reconstruction wereused to reduce radiation dose.FINDINGS: Lower lungs: Clear. No pleural effusion or pericardial effusion. Nodefinite sign of hiatal hernia.Liver, Gallbladder and Spleen: Liver is 14.7 cm in length with prominentleft lobe. Spleen is 10 x 3.5 cm. No focal lesions detected in the liver reinier the spleen. No calcified gallstones. Biliary ducts and the pancreaticduct appear of normal size. 13 mm accessory splenule noted near the loweredge of the hilum of the spleen.Peritoneum: No free air or free fluid. No lymphadenopathy.Pancreas and Adrenals: Unremarkable pancreas and adrenal glands.Kidneys and Ureters: No visible calculi in the renal collecting systems. No hydroureter or hydronephrosis. Vessels: Normal. Patent hepatic/portal venous circulation and renal veins.2 right renal arteries and 2 left renal artery is noted arising from theabdominal aorta.Retroperitoneum: No abnormal fluid or lymphadenopathy.Bowel: No acute findings. Normal appendix is visualized.Bladder and Reproductive Organs: IUD appears to be in good position withinthe uterus. Cystic lesions are seen in both adnexa, ranging from 15 mm orsmaller in size, consistent with physiologic changes. Grossly unremarkableunder distended and unopacified urinary bladder.Bones: Unremarkable.Soft tissues: Unremarkable.CONCLUSION: No acute intra-abdominal or pelvic abnormalities detected. US GALL 2020-08 HISTORY: RUQ Abdominal pain. Big Arm BLADDER -25 TECHNIQUE: Gallbladder is of [place] 18:47:2 evaluated in multiple planes Medical 4 with the patient indifferent Branch positions. Color imaging is utilized. FINDINGS: Gallbladder is of normal size and shape with mild diffusethickening of the hahn. No gallstones. No biliary sludge or crystals seen.No free fluid detected in pericholecystic space. Common hepatic duct is 3.7mm. Hepatic and portal venous system appeared patent. CONCLUSION: No gallstones or any signs of acute cholecystitis detected. [facility], Radiant Results Inft User - 08/30/2020 1:48 PM CDTHISTORY: RUQ Abdominal pain.TECHNIQUE: Gallbladder is evaluated in multiple planes with the patient indifferent positions. Color imaging is utilized.FINDINGS: Gallbladder is of normal size and shape with mild diffusethickening of the hahn. No gallstones. No biliary sludge or crystals seen.No free fluid detected in pericholecystic space. Common hepatic duct is 3.7mm. Hepatic and portal venous system appeared patent. CONCLUSION: No gallstones or any signs of acute cholecystitis detected. Urinalysis 2020-08-30 18:36:07 Test Item Value Reference Range Interpretation Comme nts APPEARANCE (test code = Clear Clear 2314860945) COLOR (test code = 9076787152) Yellow Yellow PH (test code = 5493926733) 4.8-8.0 SP GRAVITY (test code = 1.003-1.030 2520134095) GLU U QUAL (test code = Normal Normal 5418036833) BLOOD (test code = 2705767025) Negative Negative KETONES (test code = 6546653972) Negative Negative PROTEIN (test code = 2887-8) Negative Negative UROBILIN (test code = Normal Normal 0221935409) BILIRUBIN (test code = Negative Negative 2820148704) NITRITE (test code = 9721258706) Negative Negative LEUK ROSA (test code = Negative Negative 0815170663) RBC/HPF (test code = 2048621512) See_Comment H [Automated message] The system which ge nerated this result transmit snow reference range: 0 - 3 HP F. The reference range was not used to interpret th is result as normal/abnormal . WBC/HPF (test code = 0407083603) See_Comment [Automated message] The system which [employer] nerated this result transmit snow reference range: 0 - 5 HP F. The reference range was not used to interpret th is result as normal/abnormal . BACTERIA (test code = Few Negative A 5488053557) MUCOUS (test code = 4105616917) Slight Negative LPF A SQ EPITH (test code = HPF 4454023506) Lab Interpretation (test code = Abnormal 19281-5) [facility] [id number] 18:31:45 Test Item Value Reference Range Interpretation Comments NA (test code = 140 mmol/L 135-145 1707350469) K (test code = 4.0 mmol/L 3.5-5.0 9070863670) CL (test code = 104 mmol/L 98-108 4348326700) CO2 TOTAL (test code = 22 mmol/L 23-31 L 3389940560) AGAP (test code = 2-16 3589902784) BUN (test code = 17 mg/dL 7-23 1428386176) GLUCOSE (test code = 115 mg/dL 70-110 H 2263685673) CREATININE (test code = 0.63 mg/dL 0.50-1.04 6407699563) TOTAL BILI (test code = 0.7 mg/dL 0.1-1.8 8549327172) CALCIUM (test code = 9.6 mg/dL 8.6-10.6 5459255837) T PROTEIN (test code = 7.9 g/dL 6.3-8.2 6685444823) ALBUMIN (test code = 4.9 g/dL 3.5-5.0 0762161266) ALK PHOS (test code = 87 U/L 34-122 9076998345) ALTv (test code = 34 U/L 5-35 1742-6) AST(SGOT) (test code = 33 U/L 13-40 3492181723) eGFR (test code = mL/min/1.73m2 1615035773) MARVIN (test code = MARVIN) Association of Glomerular Filtration Rate (GFR) and Staging of Kidney Disease* + --+ --+ ------+| GFR (mL/min/1.73 m2) ?| With Kidney Damage ?| ?Without Kidney Damage+ --------+ --------+ +| ?>90 ?| ?Stage one ?| ? Normal ?+ ---+ ---+ -------+| ?60-89 ?| ?Stage two ?| ? Decreased GFR ? + --+ --+ ------+| ?30-59 ?| ?Stage three ?| ? Stage three ? + --+ --+ ------+| ?15-29 ?| ?Stage four ? | ? Stage four ?+ ---+ ---+ -------+| ?<15 (or dialysis) ? ?| ?Stage five ? | ? Stage five ?+ ---+ ---+ -------+ *Each stage assumes the associated GFR level has been in effect for at least three months. ?Stages 1 to 5, with or without kidney disease, indicate chronic kidney disease. Notes: Determination of stages one and two (with eGFR >59mL/min/1.73 m2) requires estimation of kidney damage for at least three months as defined by structural or functional abnormalities of the kidney, manifested by either:Pathological abnormalities or Markers of kidney damage (including abnormalities in the composition of the blood or urine or abnormalities in imaging tests). Lab Interpretation Abnormal (test code = 56904-4) [facility]ID NOW RAPID TESTING)2020-08-30 18:31:45 Test Item Value Reference Range Interpretation Comments SARS-CoV-2 Rapid ID NOW Not Detected Not Detected (test code = 78939-4) MARVIN (test code = MARVIN) ID NOW COVID-19 Assay is an isothermal nucleic acid amplification test intended for the qualitative detection of nucleic acid from SARS-CoV-2 viral RNA in nasopharyngeal (DRIVER MEDIC) specimens. It is used under Emergency Use Authorization (EUA) by FDA. The limit of detection (LOD) of the assay is 125 Genome Equivalents/mL. A positive result is indicative of the presence of SARS-CoV-2 RNA. ?Clinical correlation with patient history and other diagnostic information is necessary to determine patient infection status. A negative (Not Detected) result does not preclude SARS-CoV-2 infection. In patients with clinical symptoms and other tests that are consistent with SARS-CoV-2 infection, negative results should be treated as presumptive negative and a new specimen should be tested with alternative PCR molecular test. Invalid: Please collect a new specimen for repeat patient testing if clinically indicated. Lab Interpretation Normal (test code = 28118-8) [facility], [id number] 18:31:08 Test Item Value Reference Range Interpretation Comments LIPASE (test code = 0627868007) 64 U/L 0-220 Lab Interpretation (test code = Normal 92070-3) [facility] with [id number] 18:23:02 Test Item Value Reference Range Interpretation Comments WBC (test code = See_Comment H [Automated 6690-2) message] The system which generated this result transmit snow reference range : 4.30 - 11.10 10*3/?L. The reference range was not used to interpret this result as normal/abnormal . RBC (test code = See_Comment [Automated 789-8) message] The system which generated this result transmit snow reference range : 3.93 - 5.25 10*6/?L. The reference range was not used to interpret this result as normal/abnormal . HGB (test code = 15.6 g/dL 11.6-15.0 H 718-7) HCT (test code = 45.3 % 35.7-45.2 H 4544-3) MCV (test code = 93.6 fL 80.6-95.5 787-2) MCH (test code = 32.2 pg 25.9-32.8 785-6) MCHC (test code = 34.4 g/dL 31.6-35.1 786-4) RDW-SD (test code = 40.7 fL 39.0-49.9 80586-7) RDW-CV (test code = 11.7 % 12.0-15.5 L 788-0) PLT (test code = See_Comment [Automated 777-3) message] The system which generated this result transmit snow reference range : 166 - 358 10*3/ ?L. The reference range was not u sed to interpret th is result as normal/abnormal . MPV (test code = 9.9 fL 9.5-12.9 49010-9) NRBC/100 WBC (test See_Comment [Automat ed code = 7657590979) message] The system which generated this result transmit snow reference range : 0.0 - 10.0 /100 WBCs. The reference range was not used to interpret this result as normal/abnormal . NRBC x10^3 (test code <0.01 See_Comment [Auto mated = [id number]) message] The system which generated this result transmit snow reference range : 10*3/?L. The reference range was not used to interpret this result as normal/abnormal . GRAN MAT (NEUT) % 85.9 % (test code = 770-8) IMM GRAN % (test code 0.40 % = 9805829822) LYMPH % (test code = 9.5 % 736-9) MONO % (test code = 2.6 % 5905-5) EOS % (test code = 1.3 % 713-8) BASO % (test code = 0.3 % 706-2) GRAN MAT x10^3(ANC) 11.01 10*3/uL 1.88-7.09 H (test code = 8744651044) IMM GRAN x10^3 (test 0.05 10*3/uL 0.00-0.06 code = 6064355636) LYMPH x10^3 (test code 1.21 10*3/uL 1.32-3.29 L = 731-0) MONO x10^3 (test code 0.33 10*3/uL 0.33-0.92 = 742-7) EOS x10^3 (test code = 0.16 10*3/uL 0.03-0.39 711-2) BASO x10^3 (test code 0.04 10*3/uL 0.01-0.07 = 704-7) Lab Interpretation Abnormal (test code = 48831-9) [id number] Test Item Value Reference Range Interpretation Comments POCT PREG (test code = 1605) negative On board controls acceptable with C present Line (test code = 3574) Lab Interpretation (test code = Normal 11872-0) [facility]"
[2021-09-29 20:34] LABS: Hematocrit 41.5 % (36.0-45.0); Lymphocytes % 17.8 % (15.3-44.8); MCV 90.9 fL (80-100); MPV 7.5 fL (7.6-11.3); RBC Red Blood Cell Count 4.57 M/uL (3.86-4.86)
[2021-09-29] MEDS ORDERED: NA CHLORIDE 0.9% 1,000 ML ONE (20:35)
[2021-09-29] MEDS ORDERED: LORazepam 2 MG/ML VIAL ONE (20:35)
[2021-09-29 20:39] LABS: Urine Blood Trace-intact (Negative); Urine Glucose Negative (Negative); Urine Protein Negative (Negative)
[2021-09-29 20:51] LABS: Albumin 4.3 g/dL (3.4-5.0); Bilirubin Direct 0.1 mg/dL (0-0.2); Bilirubin Total 0.4 mg/dL (0.2-1.0); Magnesium 1.8 mg/dL (1.8-2.4); Potassium 3.3 mmol/L (3.5-5.1); Protein, Total 8.4 g/dL (6.4-8.2)
[2021-09-29 20:51] LABS: Barbiturates NEGATIVE (NEGATIVE); Benzodiazepines NEGATIVE (NEGATIVE); Cocaine NEGATIVE (NEGATIVE); METHAMPHETAM NEGATIVE (NEGATIVE); Methadone NEGATIVE (NEGATIVE); Opiates NEGATIVE (NEGATIVE); Phencyclidine NEGATIVE (NEGATIVE); THC Cannibis NEGATIVE (NEGATIVE)
[2021-09-29 20:52] LABS: Phosphorus 0.6 mg/dL (2.5-4.9)
[2021-09-29 20:57] LABS: Protime INR 1.04; Thyroid Stimulating Hormone 2.24 uIU/mL (0.360-3.740)
--- NOTE | 2021-09-29 21:26 | RAD REPORT ---
EXAM DESCRIPTION: RAD - Chest Single View - 09/29/2021 8:37 pm CLINICAL HISTORY: CHEST PAIN COMPARISON: Portable 02/04/2019 TECHNIQUE: AP portable chest image was obtained 09/29/2021 8:37 pm . FINDINGS: Lungs are clear. Heart and vasculature are normal. No measurable pleural effusion and no p neumothorax. No acute bony abnormality seen. No acute aortic findings suspected. IMPRESSION: No acute cardiopulmonary process. No significant change from comparison study.
[2021-09-29] MEDS ORDERED: KETOROLAC 30 MG/ML INJ ONE (21:59)
--- NOTE | 2021-09-29 22:08 | EDPHYS ---
Physician Documentation [facility] Name: Nataly Sparrow Age: 26 yrs Sex: Female : 1995 Arrival Date: 09/29/2021 Time: 19:36 Bed 27 Private MD: ED Physician Caden Snow HPI: 09/29 20:14 This 26 yrs old Female presents to ER via EMS with complaints of Anxiety. mh7 20:14 The patient presents to the emergency department with anxiety, over unknown mh7 circumstances. Onset: The symptoms/episode began/occurred 2 day(s) ago, and became worse today. Past psychiatric history: Prior diagnosis: Anxiety, Psychiatric medications include: forgot name of medication, Primary psychiatric physician: the patient does not have a primary psychiatric physician, the patient has not had a prior suicide gesture, the patient does not have a previous inpatient psychiatric history, the patient's last psychiatric treatment was none. Associated signs and symptoms: Pertinent positives; anxiety, chest pain, nausea, palpitations, Pertinent negatives: abdominal pain, chills, delusions, depression, fever, hallucinations, homicidal ideation, paranoia, shortness of breath, substance abuse, suicide ideation, tremor, vomiting. Severity of symptoms: At their worst the symptoms were moderate today, in the emergency department the symptoms are unchanged. States she has been feeling anxious for the past 2 days. Her doctor started her on a new anxiety medication for anxiety 2 days ago but she forgot the name of it. She went to the gym today and worked out and anxiety got worse.. 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 - Social history:: Smoking status: unknown. ROS: 20:14 Constitutional: Negative for fever, chills, and weight loss, Eyes: Negative for injury, mh7 pain, redness, and discharge, ENT: Negative for injury, pain, and discharge, Neck: Negative for injury, pain, and swelling, Respiratory: Negative for shortness of breath, cough, wheezing, and pleuritic chest pain, Back: Negative for injury and pain, : Negative for injury, bleeding, discharge, and swelling, MS/Extremity: Negative for injury and deformity, Skin: Negative for injury, rash, and discoloration, Neuro: Negative for headache, weakness, numbness, tingling, and seizure, Allergy/Immunology: Negative for hives, rash, and allergies, Endocrine: Negative for neck swelling, polydipsia, polyuria, polyphagia, and marked weight changes, Hematologic/Lymphatic: Negative for swollen nodes, abnormal bleeding, and unusual bruising. Exam: 20:14 Head/Face: Normocephalic, atraumatic. Eyes: Pupils equal round and reactive to light, mh7 extra-ocular motions intact. Lids and lashes normal. Conjunctiva and sclera are non-icteric and not injected. Cornea within normal limits. Periorbital areas with no swelling, redness, or edema. Neck: Trachea midline, no thyromegaly or masses palpated, and no cervical lymphadenopathy. Supple, full range of motion without nuchal rigidity, or vertebral point tenderness. No Meningismus. Chest/axilla: Normal chest wall appearance and motion. Nontender with no deformity. No lesions are appreciated. Cardiovascular: Regular rate and rhythm with a normal S1 and S2. No gallops, murmurs, or rubs. Normal PMI, no JVD. No pulse deficits. Respiratory: Lungs have equal breath sounds bilaterally, clear to auscultation and percussion. No rales, rhonchi or wheezes noted. No increased work of breathing, no retractions or nasal flaring. Abdomen/GI: Soft, non-tender, with normal bowel sounds. No distension or tympany. No guarding or rebound. No evidence of tenderness throughout. Back: No spinal tenderness. No costovertebral tenderness. Full range of motion. Skin: Warm, dry with normal turgor. Normal color with no rashes, no lesions, and no evidence of cellulitis. MS/ Extremity: Pulses equal, no cyanosis. Neurovascular intact. Full, normal range of motion. Neuro: Awake and alert, GCS 15, oriented to person, place, time, and situation. Cranial nerves II-XII grossly intact. Motor strength 5/5 in all extremities. Sensory grossly intact. Cerebellar exam normal. Normal gait. 20:14 Constitutional: The patient appears in no acute distress, alert, awake, anxious. 20:14 Psych: Behavior/mood is cooperative, anxious, Affect is animated, Oriented to person, place, time, Patient has no thoughts/intents to harm self or others. Judgement / Insight is normal. Memory is normal. Delusions/hallucinations are not present. Vital Signs: 19:36 BP 136 / 84; Pulse 103; Resp 24 S; Temp 97.9(O); Pulse Ox 100% on R/A; Weight 79.38 kg bb (R); Height 5 ft. 4 in. (162.56 cm) (R); 21:30 BP 112 / 69; Pulse 71; Resp 16; Pulse Ox 96% on R/A; jb4 23:15 BP 118 / 74; Pulse 67; Resp 18; Pulse Ox 97% on R/A; jb4 09/30 00:15 BP 105 / 68; Pulse 56; Resp 16; Pulse Ox 93% on R/A; jb4 09/29 19:36 Body Mass Index 30.04 (79.38 kg, 162.56 cm) bb MDM: 09/29 22:06 Differential diagnosis: psychosis secondary to non-compliance, Anxiety, electrolyte 7 abnormality. Data reviewed: vital signs, EMS record, old medical records, lab test result(s), cardiac enzymes, CBC, electrolytes, urinalysis, EKG, radiologic studies, plain films. Data interpreted: Pulse oximetry: on room air is 96 %. Interpretation: normal. Counseling: I had a detailed discussion with the patient and/or guardian regarding: the historical points, exam findings, and any diagnostic results supporting the discharge/admit diagnosis, lab results, radiology results, the need for further work-up and treatment in the hospital. Response to treatment: the patient's symptoms have mildly improved after treatment. 22:08 Patient medically screened. [facility] 09/29 20:09 Order name: Basic Metabolic Panel; Complete Time: 21: [facility] 09/29 20:09 Order name: CBC with Diff; Complete Time: : [facility] 09/29 20:09 Order name: ETOH Level; Complete Time: 21: [facility] 09/29 20:09 Order name: Hepatic Function; Complete Time: : [facility] 09/29 20:09 Order name: PT-INR; Complete Time: 21: [facility] 09/29 20:09 Order name: Ptt, Activated; Complete Time: 21:23 [facility] 09/29 20:09 Order name: Salicylate; Complete Time: 21:23 [facility] 09/29 20:09 Order name: Urine Drug Screen; Complete Time: 21:23 [facility] 09/29 20:09 Order name: TSH; Complete Time: 21:23 [facility] 09/29 20:09 Order name: D-Dimer; Complete Time: 21:23 [facility] 09/29 20:11 Order name: COVID-19 SARS RT PCR (Document "Date of Onset" if Symptomatic); Complete [facility] Time: :09/29 20:09 Order name: EKG; Complete Time: 20: [facility] 09/29 20:09 Order name: Chest Single View XRAY; Complete Time: 21:34 [facility] 09/29 20:31 Order name: Phosphorus; Complete Time: 21:23 [facility] 09/29 20:31 Order name: Creatine Phosphokinase; Complete Time: 21:23 [facility] 09/29 20:31 Order name: Magnesium; Complete Time: 21:23 [facility] 09/29 20:39 Order name: Urine Dipstick-Ancillary; Complete Time: 20:39 [facility] 09/29 20:39 Order name: Urine Microscopic Only; Complete Time: 22:43 [facility] 09/29 20:39 Order name: Urine Culture [facility] 09/29 20:40 Order name: Urine --Ancillary (enter results); Complete Time: 21:23 09/29 20:09 Order name: EKG - Nurse/Tech; Complete Time: 20:17 [facility] 09/29 20:09 Order name: IV Saline Lock; Complete Time: 20:47 [facility] 09/29 20:09 Order name: Labs collected and sent; Complete Time: 20:47 [facility] 09/29 20:09 Order name: Urine Dipstick-Ancillary (obtain specimen); Complete Time: 20:47 [facility] 09/29 20:09 Order name: Urine Test (obtain specimen); Complete Time: 20:47 [facility] Administered Medications: 20:47 Drug: NS 0.9% 1000 ml Route: IV; Rate: 1000 ml; Site: right antecubital; jb4 22:01 Follow up: Response: No adverse reaction; IV Status: Completed infusion; IV Intake: jb4 1000ml 20:47 Drug: Ativan (LORazepam) 1 mg Route: IVP; Site: right antecubital; jb4 22:00 Follow up: Response: No adverse reaction; Marked relief of symptoms jb4 21:55 Drug: Ketorolac 15 mg Route: IVP; Site: right wrist; jb4 22:10 Follow up: Response: No adverse reaction; Marked relief of symptoms jb4 22:57 Drug: XANax (alprazolam) Tablet 0.5 mg Route: PO; jb4 23:15 Follow up: Response: No adverse reaction; Marked relief of symptoms jb4 23:55 Drug: Potassium Phosphate 30 mmol Route: IV; Rate: per protocol; Site: right wrist; jb4 09/30 01:02 Follow up: Response: No adverse reaction; IV Status: Infusion continued upon admission jb4 00:01 Drug: NS 0.9% 1000 ml Route: IV; Rate: 100 ml/hr; Site: right wrist; jb4 01:01 Follow up: IV Status: Infusion continued upon admission jb4 Disposition Summary: 09/29/21 22:08 Hospitalization Ordered Hospitalization Status: Inpatient Admission [facility] Provider: Jay Stiles Location: Telemetry/MedSurg (Inpatient) [facility] Condition: Stable [facility] Problem: new [facility] Symptoms: have improved [facility] Bed/Room Type: [place] [address] Room Assignment: [facility](09/29/21 23:39) Diagnosis - Hypophosphatemia mh7 - Anxiety [facility] Forms: - Medication Reconciliation Form 7 - SBAR form [facility] Signatures: Dispatcher [employer] EDMS Evelin Serrano RN RN Hardik Preciado, HEAT TREAT OPERATOR-C HEAT TREAT OPERATOR-Cla1 Lara Perez RN RN cg Bryson, James, RN RN jb4 Caden Snow MD MD 7 Corrections: (The following items were deleted from the chart) 09/29 20:31 20:12 MAGNESIUM+C.LAB.BRZ ordered. EDMS EDMS 20:31 20:12 PHOSPHORUS+C.LAB.BRZ ordered. EDMS EDMS 20:31 20:24 CREATINE PHOSPHOKINASE+C.LAB.BRZ ordered. EDMS EDMS 20:32 20:09 ACETAMINOPHEN+C.LAB.BRZ ordered. EDMS EDMS 20:47 20:09 Suicide Screening ([facility] ordered. mh7 jb4 23:39 22:08 mh7
--- NOTE | 2021-09-29 22:08 | ER ---
Nurse's Notes [facility] Name: Nataly Sparrow Age: 26 yrs Sex: Female : 1995 Arrival Date: 09/29/2021 Time: 19:36 Bed 27 Private MD: Diagnosis: Hypophosphatemia;Anxiety Presentation: 09/29 19:36 Chief complaint: EMS states: they were toned out for report of pt having an anxiety bb attack. Pt has history of anxiety and recently started on medication but does not know what it is. Pt states she started having anxiety after the gym approx 1830 tonight. Coronavirus screen: At this time, the client does not indicate any symptoms associated with coronavirus-19. Ebola Screen: No symptoms or risks identified at this time. Initial Sepsis Screen: Does the patient meet any 2 criteria? No. Patient's initial sepsis screen is negative. Does the patient have a suspected source of infection? No. Patient's initial sepsis screen is negative. Risk Assessment: Do you want to hurt yourself or someone else? Patient reports no desire to harm self or others. Onset of symptoms was September 29, 2021. 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 - Social history:: Smoking status: unknown. Screenin:45 Abuse screen: Denies threats or abuse. Nutritional screening: No deficits noted. jb4 Tuberculosis screening: No symptoms or risk factors identified. Fall Risk None identified. Assessment: 19:45 General: Appears in no apparent distress. uncomfortable, Behavior is cooperative, jb4 anxious. Pain: Complains of pain in chest Pain does not radiate. Pain currently is 9 out of 10 on a pain scale. Quality of pain is described as pressure. Neuro: Level of Consciousness is awake, alert, obeys commands, Oriented to person, place, time, situation. Cardiovascular: Patient's skin is warm and dry. Rhythm is sinus rhythm. Respiratory: Airway is patent Respiratory effort is even, unlabored, Respiratory pattern is regular, symmetrical. GI: No signs and/or symptoms were reported involving the gastrointestinal system. : No signs and/or symptoms were reported regarding the genitourinary system. EENT: No signs and/or symptoms were reported regarding the EENT system. Derm: Skin is intact, Skin is pink, warm \T\ dry. Musculoskeletal: Circulation, motion, and sensation intact. Range of motion:. 20:45 Reassessment: Patient appears in no apparent distress at this time. Patient and/or jb4 family updated on plan of care and expected duration. Pain level reassessed. Patient is alert, oriented x 3, equal unlabored respirations, skin warm/dry/pink. 21:48 Reassessment: Patient appears in no apparent distress at this time. Patient and/or jb4 family updated on plan of care and expected duration. Pain level reassessed. Patient is alert, oriented x 3, equal unlabored respirations, skin warm/dry/pink. Patient states feeling better. Patient states symptoms have improved. 23:00 Reassessment: Patient appears in no apparent distress at this time. Patient and/or jb4 family updated on plan of care and expected duration. Pain level reassessed. Patient is alert, oriented x 3, equal unlabored respirations, skin warm/dry/pink. 09/30 00:29 Reassessment: Patient appears in no apparent distress at this time. Patient and/or jb4 family updated on plan of care and expected duration. Pain level reassessed. Patient is alert, oriented x 3, equal unlabored respirations, skin warm/dry/pink. Vital Signs: 09/29 19:36 BP 136 / 84; Pulse 103; Resp 24 S; Temp 97.9(O); Pulse Ox 100% on R/A; Weight 79.38 kg bb (R); Height 5 ft. 4 in. (162.56 cm) (R); 21:30 BP 112 / 69; Pulse 71; Resp 16; Pulse Ox 96% on R/A; jb4 23:15 BP 118 / 74; Pulse 67; Resp 18; Pulse Ox 97% on R/A; jb4 09/30 00:15 BP 105 / 68; Pulse 56; Resp 16; Pulse Ox 93% on R/A; jb4 09/29 19:36 Body Mass Index 30.04 (79.38 kg, 162.56 cm) bb ED Course: 09/29 19:36 Patient arrived in ED. bb 19:39 Triage completed. bb 19:39 Arm band placed on Patient placed in an exam room, on a stretcher, on pulse oximetry. bb 19:42 Caden Snow MD is Attending Physician. 7 19:45 Patient has correct armband on for positive identification. Bed in low position. Call jb4 light in reach. Side rails up X 1. Client placed on continuous cardiac and pulse oximetry monitoring. NIBP monitoring applied. 20:17 Servando Pena, SANTO is Primary Nurse. jb4 20:38 Chest Single View XRAY In Process Unspecified. EDMS 22:07 Jay Stiles MD is Hospitalizing Provider. 7 23:26 No provider procedures requiring assistance completed. jb4 23:26 Patient admitted, IV remains in place. jb4 Administered Medications: 20:47 Drug: NS 0.9% 1000 ml Route: IV; Rate: 1000 ml; Site: right antecubital; jb4 22:01 Follow up: Response: No adverse reaction; IV Status: Completed infusion; IV Intake: jb4 1000ml 20:47 Drug: Ativan (LORazepam) 1 mg Route: IVP; Site: right antecubital; jb4 22:00 Follow up: Response: No adverse reaction; Marked relief of symptoms jb4 21:55 Drug: Ketorolac 15 mg Route: IVP; Site: right wrist; jb4 22:10 Follow up: Response: No adverse reaction; Marked relief of symptoms jb4 22:57 Drug: XANax (alprazolam) Tablet 0.5 mg Route: PO; jb4 23:15 Follow up: Response: No adverse reaction; Marked relief of symptoms jb4 23:55 Drug: Potassium Phosphate 30 mmol Route: IV; Rate: per protocol; Site: right wrist; jb4 09/30 01:02 Follow up: Response: No adverse reaction; IV Status: Infusion continued upon admission jb4 00:01 Drug: NS 0.9% 1000 ml Route: IV; Rate: 100 ml/hr; Site: right wrist; jb4 01:01 Follow up: IV Status: Infusion continued upon admission jb4 Medication: 01:01 VIS not applicable for this client. jb4 Intake: 09/29 22:01 IV: 1000ml; Total: 1000ml. jb4 Outcome: 22:08 Decision to Hospitalize by Provider. mh7 09/30 01:00 Admitted to Med/surg accompanied by nurse, via wheelchair, room 215, with chart. jb4 Condition: stable Discharge instructions given to patient, Instructed on the need for admit, Demonstrated understanding of instructions. 01:02 Patient left the ED. jb4 Signatures: Dispatcher [employer] Evelin Lyman, SANTO RN Servando Curry RN RN jb4 Caden Snow MD MD mh7
[2021-09-29 22:13] LABS: Urine Bacteria <20 /HPF (<20); Urine RBC NONE SEEN /HPF (NONE SEEN)
[2021-09-29] MEDS ORDERED: ALPRAZOLAM 0.5 MG TABLET ONE (22:56)
[2021-09-29] MEDS ORDERED: POTASSIUM PHOSPHATE 40 MEQ in NS 500 ML IV ONE (23:00)
[2021-09-29] MEDS ORDERED: POTASSIUM PHOS 30 MEQ in NA CHLORIDE 0.9% 250 ML IV ONE (23:00)
--- NOTE | 2021-09-29 23:18 | P.HP ---
Certification for Inpatient Patient admitted to: Observation With expected LOS: <2 Midnights Patient will require the following post-hospital care: None Practitioner: I am a practitioner with admitting privileges, knowledge of patient current condition, hospital course, and medical plan of care. Services: Services provided to patient in accordance with Admission requirements found in Title 42 Section 412.3 of the Code of Federal Regulations Patient History Date of Service: 09/29/21 Reason for admission: Hypophosphatemia History of Present Illness: 26-year-old female presents to the emergency department for panic attack, she reports that she has been feeling "hot flashes" in her right lower extremity as well as some pressure in her head which "freaks her out". She does have a history of anxiety reports she has had panic attacks in the past but her anxiety has been well under control until recently. She was brought to the emergency room by EMS for anxiety attack she was evaluated in the ER with labs which were significant for mild hypokalemia, severe hypophosphatemia tox screen was negative chest x-ray is unremarkable. Given her severe hypophosphatemia ED provider discussed case with nephrology who recommends observation overnight with treatment of IV potassium and phosphorus. Patient still appears quite anxious complains of "hot flashes" to the right foot. She reports her neurologist Dr. Glover recently started on a medication but she thinks it is primarily for sleep and only takes it before bedtime. Allergies No Known Allergies Allergy (Verified 01/27/14 04:32) Home Medications: Tramadol HCl [Ultram] 50 mg PO Q6HR #15 tablet 04/15/17 - Past Medical/Surgical History Diabetic: No -: Anxiety -: 01/2014 Psychosocial/ Personal History: Patient lives at home with family - Family History Family History: Reviewed- Non-Contributory - Social History Smoking Status: Never smoker Alcohol use: Yes CD- Drugs: No Caffeine use: Yes Place of Residence: Home Review of Systems 10-point ROS is otherwise unremarkable General: Other (Anxiety) Musculoskeletal: Foot Pain (Hot flashes to right foot) Neurological: Other (Head pressure) Physical Examination - Physical Exam General: Alert, In no apparent distress, Oriented x3, Other (Anxious) HEENT: Atraumatic, PERRLA, Mucous membr. moist/pink, EOMI, Sclerae nonicteric Neck: Supple, 2+ carotid pulse no bruit, No LAD, Without JVD or thyroid abnormality Respiratory: Clear to auscultation bilaterally, Normal air movement Cardiovascular: Regular rate/rhythm, Normal S1 S2 Gastrointestinal: Normal bowel sounds, No tenderness Musculoskeletal: No tenderness Integumentary: No rashes Neurological: Normal gait, Normal speech, Normal strength at 5/5 x4 extr, Normal tone, Normal affect Lymphatics: No axilla or inguinal lymphadenopathy - Studies Laboratory Data (last 24 hrs) 09/29/21 20:20: PT 11.4, INR 1.04, APTT 29.6 09/29/21 20:20: WBC 11.2 H, Hgb 14.2, Hct 41.5, Plt Count 348 09/29/21 20:20: Sodium 139, Potassium 3.3 L, BUN 9, Creatinine 1.07, Glucose 122 H, Phosphorus 0.6 L*, Magnesium 1.8, Total Bilirubin 0.4, AST 15, ALT 39, Alkaline Phosphatase 72 09/29/21 20:11: Phosphorus Cancelled, Magnesium Cancelled Assessment and Plan - Plan Assessment: Severe hypophosphatemia Mild hypokalemia Anxiety Plan: Severe hypophosphatemia: Suspect this may be related to redistribution/respiratory alkalosis/panic attack, no issues with diet or GI loss reported. Unable to obtain urine phosphorus level at our facility. ED provider discussed case with nephrology and plans for replacement with IV phosphorus over the course of the next 6 hours with repeat lab in the morning. Her symptoms of right lower extremity paresthesia may be related to hyperphosphatemia we will also repeat CPK level in the morning. Patient denies chronic alcohol abuse. Mild hypokalemia: Protocol in place. Anxiety: As needed benzodiazepines. Patient will need to follow-up with psychiatry at discharge. DVT PPX: Lovenox Code status: Full Discharge Plan: Home Plan to discharge in: 24 Hours - Advance Directives Does patient have a Living Will: No Does patient have a Durable POA for Healthcare: No - Code Status/Comfort Care Code Status Assessed: Yes (Full code) Critical Care: No Time Spent Managing Pts Care (In Minutes): 70
[2021-09-30] MEDS ORDERED: NA CHLORIDE 0.9% 1,000 ML ONE (00:04)
[2021-09-30] MEDS ORDERED: ONDANSETRON 4 MG/2 ML VIAL IV PRN (00:42)
[2021-09-30 01:18] VITALS: O2SAT 93
[2021-09-30 01:32] VITALS: BMI 29.7
[2021-09-30] MEDS: ALPRAZOLAM 0.5 MG TABLET PO PRN ×3 (01:33→14:33)
[2021-09-30] MEDS ORDERED: NA CHLORIDE 0.9% 1,000 ML IV ONE (03:55)
[2021-09-30] MEDS: NA CHLORIDE 0.9% 1,000 ML IV SCH ×2 (06:09→12:29)
[2021-09-30 06:24] LABS: Bilirubin Total 0.3 mg/dL (0.2-1.0); Magnesium 1.6 mg/dL (1.8-2.4); Phosphorus 4.9 mg/dL (2.5-4.9); Potassium 3.9 mmol/L (3.5-5.1); Protein, Total 5.6 g/dL (6.4-8.2)
[2021-09-30] MEDS ORDERED: MAGNESIUM SULFATE 1 gm IVPB 1 GM/100 ML BAG IV ONE (06:29)
--- NOTE | 2021-09-30 06:33 | P.PN ---
Date of Service: 09/30/21 Subjective: no acute events overnight, no further panic/anxiety attacks intermittent hot flash of R foot, fullness/tingling of R face ROS: 10 point ROS as noted above, otherwise negative Physical exam GEN: alert, NAD HEENT: PERRL, EOMI, very minimal flattening of R nasolabial fold compared to L CV: Regular rate and rhythm, no edema Pulm: Nonlabored respirations on room air ABD: Soft, nontender, nondistended Integumentary: No rashes Neuro: Normal speech, normal affect, str 5/5, sensation intact Problem List Severe hypophosphatemia Mild hypokalemia Anxiety unclear etiology possibly from hyperventilation / respiratory alkalosis, BMP appears more acidotic. calcium normal / low this morning; less likely primary parathyroidism. no bone pain, no h/o stones PTH/vit D ordered this AM, pending nephrology consulted in ED phos replaced overnight. normal this morning suspect paresethesia secondary to hypophosphatemia denies diet changes, drinks protein shake to workout daily - which has potassium, phos significant anxiety VTE: lovenox Code: full Dispo: home, likely tomorrow Time Spent Managing Pts Care (In Minutes): 35
[2021-09-30 06:45] LABS: Hematocrit 33.5 % (36.0-45.0); Lymphocytes % 30.7 % (15.3-44.8); MPV 7.4 fL (7.6-11.3); RBC Red Blood Cell Count 3.64 M/uL (3.86-4.86)
[2021-09-30] MEDS: ENOXAPARIN 40 MG/0.4 ML SQ SCH (07:43)
[2021-09-30] MEDS ORDERED: ACETAMINOPHEN 500 MG TAB PO PRN (08:50)
[2021-09-30] MEDS ORDERED: POTASSIUM CL SA 10 MEQ TAB PO ONE (09:00)
--- NOTE | 2021-09-30 12:01 | P.CNS ---
Date of Consult: 09/30/21 Reason for Consult: HypoPO4 Requesting Physician: Jay Stiles Chief Complaint: Hypophosphatemia History of Present Illness: 26-year-old female presents to the emergency department for panic attack, she reports that she has been feeling "hot flashes" in her right lower extremity as well as some pressure in her head which "freaks her out". She does have a history of anxiety reports she has had panic attacks in the past but her anxiety has been well under control until recently. She was brought to the emergency room by EMS for anxiety attack she was evaluated in the ER with labs which were significant for mild hypokalemia, severe hypophosphatemia tox screen was negative chest x-ray is unremarkable. Given her severe hypophosphatemia ED provider discussed case with nephrology who recommends observation overnight with treatment of IV potassium and phosphorus. Patient still appears quite anxious complains of "hot flashes" to the right foot. She reports her neurologist Dr. Glover recently started on a medication but she thinks it is primarily for sleep and only takes it before bedtime. 20:14 This 26 yrs old Female presents to ER via EMS with complaints of Anxiety. mh7 20:14 The patient presents to the emergency department with anxiety, over unknown mh7 circumstances. Onset: The symptoms/episode began/occurred 2 day(s) ago, and became worse today. Past psychiatric history: Prior diagnosis: Anxiety, Psychiatric medications include: forgot name of medication, Primary psychiatric physician: the patient does not have a primary psychiatric physician, the patient has not had a prior suicide gesture, the patient does not have a previous inpatient psychiatric history, the patient's last psychiatric treatment was none. Associated signs and symptoms: Pertinent positives; anxiety, chest pain, nausea, palpitations, Pertinent negatives: abdominal pain, chills, delusions, depression, fever, hallucinations, homicidal ideation, paranoia, shortness of breath, substance abuse, suicide ideation, tremor, vomiting. Severity of symptoms: At their worst the symptoms were moderate today, in the emergency department the symptoms are unchanged. States she has been feeling anxious for the past 2 days. Her doctor started her on a new anxiety medication for anxiety 2 days ago but she forgot the name of it. She went to the gym today and worked out and anxiety got worse.. Allergies No Known Allergies Allergy (Verified 09/30/21 01:06) Home medications list reviewed: Yes Home Medications: Escitalopram Oxalate 1 tab PO BEDTIME 09/30/21 - Past Medical/Surgical History Diabetic: No -: Anxiety -: 01/2014 Psychosocial/ Personal History: Patient lives at home with family - Social History Smoking Status: Unknown if ever smoked Alcohol use: Yes CD- Drugs: No Caffeine use: No Place of Residence: Home Review of Systems 10-point ROS is otherwise unremarkable Physical Examination Temp Pulse Resp BP Pulse Ox 97.7 F 57 18 85/49 L 99 09/30/21 08:00 09/30/21 08:00 09/30/21 08:00 09/30/21 08:00 09/30/21 08:00 General: Oriented x3, Cooperative HEENT: Atraumatic Neck: Supple Respiratory: Clear to auscultation bilaterally Cardiovascular: No edema, Regular rate/rhythm Gastrointestinal: Soft and benign, Non-distended Musculoskeletal: No clubbing, No contractures Integumentary: No rashes, No cyanosis Neurological: Normal speech Laboratory Data (last 24 hrs) 09/29/21 20:20: PT 11.4, INR 1.04, APTT 29.6 09/29/21 20:20: WBC 11.2 H, Hgb 14.2, Hct 41.5, Plt Count 348 09/29/21 20:20: Sodium 139, Potassium 3.3 L, BUN 9, Creatinine 1.07, Glucose 122 H, Phosphorus 0.6 L*, Magnesium 1.8, Total Bilirubin 0.4, AST 15, ALT 39, Alkaline Phosphatase 72 09/29/21 20:11: Phosphorus Cancelled, Magnesium Cancelled Imagings Data: EXAM DESCRIPTION: RAD - Chest Single View - 09/29/2021 8:37 pm CLINICAL HISTORY: CHEST PAIN COMPARISON: Portable 02/04/2019 TECHNIQUE: AP portable chest image was obtained 09/29/2021 8:37 pm . FINDINGS: Lungs are clear. Heart and vasculature are normal. No measurable pleural effusion and no pneumothorax. No acute bony abnormality seen. No acute aortic findings suspected. IMPRESSION: No acute cardiopulmonary process. No significant change from comparison study. Conclusions/Impression: HyperPTH likely secondary to Vitamin D Deficiency HypoPO4 -Replete PO4 as ordered -Give Vitamin D3 loading dose Hypokalemia -Replete potassium as ordered Hypomagnesemia -Replete prn Anemia in chronic illness -Monitor H&H -Check anemia labs Case reviewed with Dr. Stiles Thank you kindly for the consultation.
[2021-09-30] MEDS ORDERED: VITAMIN D 5,000 UNIT CAP PO ONE (15:00)
--- NOTE | 2021-09-30 17:28 | EKG ---
Test Date: 2021-09-29 Test Time: 20:10:12 Manager Group: JULIANNA MEASUREMENT RESULTS: Intervals: Rate: 77 AR: 152 QRSD: 84 QT: 378 QTc: 427 Rachel: P: 61 AR: 152 QRS: 87 T: 48 INTERPRETIVE STATEMENTS: Normal sinus rhythm with sinus arrhythmia Normal ECG Compared to ECG 02/04/2019 20:01:47 Right-axis deviation no longer present Electronically Signed On 09-30-21 17:27:10 CDT by John Kumar
[2021-10-01] MEDS: ALPRAZOLAM 0.5 MG TABLET PO PRN (06:10)
[2021-10-01 06:26] LABS: Absolute Lymphocytes (CBC) 2.2 K/uL (0.7-4.9); Hematocrit 38.5 % (36.0-45.0); Lymphocytes % 27.4 % (15.3-44.8); MCV 93.6 fL (80-100); MPV 7.7 fL (7.6-11.3); RBC Red Blood Cell Count 4.11 M/uL (3.86-4.86)
[2021-10-01 07:01] LABS: Albumin 3.1 g/dL (3.4-5.0); Bilirubin Total 0.2 mg/dL (0.2-1.0); Magnesium 1.7 mg/dL (1.8-2.4); Phosphorus 4.1 mg/dL (2.5-4.9); Potassium 4.1 mmol/L (3.5-5.1); Protein, Total 6.1 g/dL (6.4-8.2); Uric Acid 3.5 mg/dL (2.6-6.0)
[2021-10-01] MEDS: ENOXAPARIN 40 MG/0.4 ML SQ SCH (07:46)
[2021-10-01] MEDS ORDERED: MAGNESIUM OXIDE 400 MG TAB PO ONE (08:00)
[2021-10-01 09:31] LABS: Ferritin 10.2 ng/mL (8-388); Folic Acid, (Folate) 9.2 ng/mL (3.1-17.5)
[2021-10-01] MEDS ORDERED: SOD FERRIC GLUC COMPLX/SUCROSE 250 MG in NA CHLORIDE 0.9% 250 ML IV SCH (11:00)
[2021-10-01 13:10] VITALS: BP 113/73; TEMP 97.9
[2021-10-01] MEDS ORDERED: VITAMIN D 5,000 UNIT CAP PO ONE (14:00)
--- NOTE | 2021-10-01 15:03 | P.DS ---
Admission Date: 09/30/21 Discharge Date: 10/01/21 Disposition: ROUTINE DISCHARGE Discharge Condition: GOOD Reason for Admission: Hypophosphatemia Consultations: Nephrology - Dr. Campbell Brief History of Present Illness: 26yo F, PMH: anxiety /panic attack Presents to ED for panic attack. She has been feeling "hot flashes" in her right foot intermittently. Reports h/o anxiety and panic attacks several years ago, but have been under control and not on any medications until this week. She went to her clinic and was started on escitalopram a few days ago. In the ED labs were significant for mild hypokalemia, severe hypophosphatemia tox screen was negative chest x-ray is unremarkable. Hospital Course: Problem List Severe hypophosphatemia secondary to vitd D deficiency / secondary hyperparathyroidism iron deficiency Anxiety Patient was found to have elevated PTH with significant vitamin D and iron deficiency, with normal calcium levels. Consistent with secondary hyperparathyroidism. This is what lead to her hypophosphatemi, which may have been exacerbated further by her episodes of hyperventilation. Started Vitamin D replacement and will continue with 2000 IU daily at home. Patient was given one IV dose of 250mg IV iron (ferrlecit) to increase her iron. Iron absorption will be low temporarily with vitamin D deficiency. Advised to continue with daily vitamin, which will have appropriate iron supplementation. Follow up with Dr. Campbell in a few weeks. Will need repeat labs in ~2-3 months to recheck labs - iron, Vit D, PTH Follow up with PCP within 1 week. Continue escitalopram as prescribed. Follow up with your PCP. Prescribed klonopin to take as needed for severe anxiety / panic attacks, until these medications take effect. Vital Signs/Physical Exam: Temp Pulse Resp BP Pulse Ox 97.9 F 68 16 113/73 100 10/01/21 12:00 10/01/21 12:00 10/01/21 12:00 10/01/21 12:10/01/21 12:00 General: Alert, In no apparent distress HEENT: EOMI, Sclerae nonicteric Neck: Supple, No LAD Respiratory: Clear to auscultation bilaterally, Normal air movement Cardiovascular: No edema, Regular rate/rhythm, No murmurs Gastrointestinal: Soft and benign, Non-distended, No tenderness Musculoskeletal: No erythema, No tenderness Integumentary: No rashes, No significant lesion Neurological: Normal speech, Normal strength at 5/5 x4 extr, Normal affect Laboratory Data at Discharge: WBC 7.9 K/uL (4.3-10.9) D 10/01/21 06:08 Hgb 13.0 g/dL (12.0-15.0) 10/01/21 06:08 Hct 38.5 % (36.0-45.0) 10/01/21 06:08 Plt Count 305 K/uL (152-406) 10/01/21 06:08 PT 11.4 SECONDS (9.5-12.5) 09/29/21 20:20 INR 1.04 09/29/21 20:20 APTT 29.6 SECONDS (24.3-36.9) 09/29/21 20:20 Sodium 140 mmol/L (136-145) 10/01/21 06:08 Potassium 4.1 mmol/L (3.5-5.1) 10/01/21 06:08 BUN 5 mg/dL (7-18) L 10/01/21 06:08 Creatinine 0.81 mg/dL (0.55-1.3) 10/01/21 06:08 Glucose 97 mg/dL (74-106) 10/01/21 06:08 Uric Acid 3.5 mg/dL (2.6-6.0) 10/01/21 06:08 Phosphorus 4.1 mg/dL (2.5-4.9) 10/01/21 06:08 Magnesium 1.7 mg/dL (1.8-2.4) L 10/01/21 06:08 Total Bilirubin 0.2 mg/dL (0.2-1.0) 10/01/21 06:08 AST 8 U/L (15-37) L 10/01/21 06:08 ALT 28 U/L (12-78) 10/01/21 06:08 Alkaline Phosphatase 69 U/L (45-117) 10/01/21 06:08 Home Medications: Escitalopram Oxalate 1 tab PO BEDTIME 09/30/21 Cholecalciferol (Vitamin D3) [Vitamin D3] 2,000 unit PO DAILY 60 Days #60 capsule 10/01/21 clonazePAM [Klonopin] 0.5 mg PO Q12HR PRN #20 tablet 10/01/21 New Medications: clonazePAM [Klonopin] 0.5 mg PO Q12HR PRN #20 tablet PRN Reason: Anxiety Cholecalciferol (Vitamin D3) [Vitamin D3] 2,000 unit PO DAILY 60 Days #60 capsule Physician Discharge Instructions: Patient was found to have elevated PTH with significant vitamin D and iron deficiency, with normal calcium levels. Consistent with secondary hyperparathyroidism. This is what lead to her hypophosphatemi, which may have been exacerbated further by her episodes of hyperventilation. Started Vitamin D replacement and will continue with 2000 IU daily at home. Patient was given one IV dose of 250mg IV iron (ferrlecit) to increase her iron. Iron absorption will be low temporarily with vitamin D deficiency. Advised to continue with daily vitamin, which will have appropriate iron supplementation. Follow up with Dr. Campbell in a few weeks. Will need repeat labs in ~2-3 months to recheck labs - iron, Vit D, PTH Follow up with PCP within 1 week. Continue escitalopram as prescribed. Follow up with your PCP. Prescribed klonopin to take as needed for severe anxiety / panic attacks, until these medications take effect. Diet: Regular Activity: Ad laney Followup: NONE,NONE [Primary Care Provider] - Time spent managing pt's care (in minutes): 45
--- NOTE | 2021-10-01 16:03 | P.PN ---
Date of Service: 10/01/21 Vital Signs Temp Pulse Resp BP Pulse Ox 97.9 F 68 16 113/73 100 10/01/21 12:00 10/01/21 12:00 10/01/21 12:00 10/01/21 12:00 10/01/21 12:00 Medications Acetaminophen (Acetaminophen 500 Mg Tab) 500 mg PO Q6H PRN PRN Reason: Pain scale 2-4 (Mild) Last Admin: 09/30/21 10:04 Dose: 500 mg Documented by: Alprazolam (Alprazolam 0.5 Mg Tablet) 0.5 mg PO TID PRN PRN Reason: ANXIETY Last Admin: 10/01/21 06:10 Dose: 0.5 mg Documented by: Enoxaparin Sodium (Enoxaparin 40 Mg/0.4 Ml) 40 mg SQ DAILY [facility] Last Admin: 10/01/21 07:46 Dose: 40 mg Documented by: Ondansetron HCl (Ondansetron 4 Mg/2 Ml Vial) 4 mg IV Q6HP PRN PRN Reason: NAUSEA / VOMITING Sodium Chloride (Flush Normal Saline 10 Ml) 10 ml IV BID [facility] Last Admin: 10/01/21 07:46 Dose: 10 ml Documented by: Microbiology Results 09/29/21 20:35 Clean Catch Urine [place] Count - Final <10,000 CFU/ML. 09/29/21 20:35 Clean Catch Urine - Final MIXED KOFFI. Assessment/ Plan: Nephrology No dyspnea No chest pain No acute events overnight Vitals, medications, blood work and imaging reviewed in the chart. General: Oriented x3, Cooperative HEENT: Atraumatic Neck: Supple Respiratory: Clear to auscultation bilaterally Cardiovascular: No edema, Regular rate/rhythm Gastrointestinal: Soft and benign, Non-distended Musculoskeletal: No clubbing, No contractures Integumentary: No rashes, No cyanosis Neurological: Normal speech Laboratory Data (last 24 hrs) 09/29/21 20:20: PT 11.4, INR 1.04, APTT 29.6 09/29/21 20:20: WBC 11.2 H, Hgb 14.2, Hct 41.5, Plt Count 348 09/29/21 20:20: Sodium 139, Potassium 3.3 L, BUN 9, Creatinine 1.07, Glucose 122 H, Phosphorus 0.6 L*, Magnesium 1.8, Total Bilirubin 0.4, AST 15, ALT 39, Alkaline Phosphatase 72 09/29/21 20:11: Phosphorus Cancelled, Magnesium Cancelled Imagings Data: EXAM DESCRIPTION: RAD - Chest Single View - 09/29/2021 8:37 pm CLINICAL HISTORY: CHEST PAIN COMPARISON: Portable 02/04/2019 TECHNIQUE: AP portable chest image was obtained 09/29/2021 8:37 pm . FINDINGS: Lungs are clear. Heart and vasculature are normal. No measurable pleural effusion and no pneumothorax. No acute bony abnormality seen. No acute aortic findings suspected. IMPRESSION: No acute cardiopulmonary process. No significant change from comparison study. Conclusions/Impression: HyperPTH likely secondary to Vitamin D Deficiency HypoPO4 -Replete PO4 prn -Vitamin D3 X1 dose today Hypokalemia -Replete potassium prn Hypomagnesemia -Replete prn Anemia in chronic illness Iron Deficiency -Monitor H&H -Agree with IV iron Case reviewed with Dr. Stiles
[2021-10-02] MEDS ORDERED: VITAMIN D 5,000 UNIT CAP PO ONE (16:00)
== END 2021-10-01 15:30 | disposition home or self-care (01) | DRG 645 ==
LOC: ER 19:34 → ERHOLD 23:59 → 2ND 09-30 00:30 → OBSVTOIN 09-30 19:55
PROVIDERS: ADMIT Hospitalist; ATTEND Hospitalist
DX: E21.1 Secondary hyperparathyroidism, not elsewhere classified (principal); F41.9 Anxiety disorder, unspecified; E87.6 Hypokalemia; D50.9 Iron deficiency anemia, unspecified; F41.0 Panic disorder [episodic paroxysmal anxiety]; Z20.822 Contact with and (suspected) exposure to COVID-19
CPT/HCPCS: 36415; 71045; 80048; 80053; 80076; 80307; 80320; 80329; 81003; 81015; 81025; 82306; 82533; 82550; 82607; 82728; 82746; 83540; 83735; 83970; 84100; 84425; 84443; 84466; 84550; 85025; 85379; 85610; 85730; 87086; 87088; 93005; 99285; G0378; J1650; J2916; J3475; J7030; J7040; J7050; U0003

== ENCOUNTER 2021-12-31 19:24 | Emergency (ER) | payer OTHER ==
--- OUTSIDE RECORDS SUMMARY | 2021-12-31 19:28 | XMS REPORT | Continuity of Care Document ---
:1995 Author Organization [facility] t Address [address] [place] [address] Care Team Providers Name Role Phone KATIUSKA RODRIGUEZ Attending Clinician Unavailable LAB90 Attending Clinician Unavailable Katiuska Rodriguez MD Attending Clinician Yunier COMMUTATOR TESTER, Ba B Attending Clinician Doctor Unassigned, [place] Attending Clinician Unavailable Morris Spangler MD Attending Clinician MORRIS SPANGLER Attending Clinician Unavailable Morris Spangler MD Admitting Clinician MORRIS SPANGLER Admitting Clinician Unavailable Payers Payer Name Policy [...] positive Cervical Cervical Disease Active Overview: Estiven meeks cancer cancer 6-15 Formattin Seybold screening screening [...] Univers immune immune 2-24 ity of 00:00: [address] Branch Maternal Maternal Disease Active Unive rs varicella, varicella, 2-24 it y of non-immune [place] [facility] Branch Chlamydia Chlamydia Disease Active Uni vers trachomati trachomati 2-24 it y of s s 00:00: [place] infection infection 00 Medi jesus of lower of lower Branch genitourin genitourin julieta sites julieta sites Supervisio Supervisio Disease Active U nivers n of n of 2-20 ity of normal normal 00:00: [place] 00 Medi jesus Branch Pelvic Pelvic Disease Active Univers cramping cramping 2-20 ity of in in 00:00: [place] antepartum antepartum 00 Me dical period period Branch Allergies, Adverse Reactions, Alerts Allergy Allergy Status Severity Reaction(s) Onset Inactive Treating Comm ents Source Name Type Date Date Clinician NO KNOWN Drug Active Univers ALLERGIE Class ity of S [facility] Social History Social Habit Start Date Stop Date Quantity Comments Source ASSERTION 2019-08-02 University of 00:00:00 [facility] History SDOH Krysten reeder Alcohol Std Drinks History SDOH Krysten reeder Alcohol Binge History [facility] Krysten reeder Alcohol Comment Exposure to Not sure Krysten araiza SARS-CoV-2 (event) History of Cigarette Smoker Krysten cuevas tobacco use Alcohol intake 2020-12-26 2020-12-26 Ex-drinker Krysten august 00:00:00 00:00:00 (finding) Tobacco use and 2020-09-22 2020-09-22 Smokeless tobacco Estiven Guajardo exposure 00:00:00 00:00:00 non-user History SDOH 2020-09-22 2020-09-22 1 Krysten reeder Alcohol Frequency 00:00:00 00:00:00 Tobacco Comment 2013-05-28 2013-05-28 Smoker for 5-6 Unive rsity of 00:00:00 00:00:00 months [facility] Sex Ass[birth year] At [birth year] Krysten Se ybold 00:00:00 00:00:00 Smoking Status Start Date Stop Date Source Former smoker 2020-08-30 00:00:00 2020-08-30 00:00:00 [facility] Medications Ordered Filled Start Stop Current [...] mg 00 :00 ONCE, 1 Medical dose, [facility] 08/30/20 at 1430, KATIE
Fa culty member approving Restricted medication : JENN MANRIQUE diphenhydrA 2020- No 25mg 25 mg, Uni vers MINE 5-25 05-25 Slow IV ity of (BENADRYL) 19:30: 18:32 Push, [place] injection 00 :00 ONCE, 1 Medical 25 mg dose, [facility] 08/30/20 at 1430, STAT metoclopram 2020- No 10mg 10 mg, Uni vers rufino HCl 5-25 05-25 Slow IV ity of (REGLAN) 19:30: 18:32 Push, [place] injection 00 :00 ONCE, 1 Medical 10 mg dose, [facility] 08/30/20 at 1430, KATIE iopamidol 2020- No [id number] 120mL 120 mL, Univers (ISOVUE 5-25 05-25 Intravenou ity o f 370-500 mL) 19:06: 19:06 s, ONCE, 1 [place] injection 00 :00 dose, Tue Medic al 120 mL 08/30/20 at Branch 1415, Routine NaCl 0.9% 2020- No 1000mL at 999 Uni vers (NS) bolus 5-25 05-25 mL/hr, ity of infusion 18:30: 19:45 1,000 mL, Mushtaq as 1,000 mL 00 :00 IV Medical Infusion, Branch ONCE, 1 dose, 08/30/20 at 1330, KATIE ondansetron Yes [id number] 4mg Take 1 Univers 4 mg 5-25 tablet by ity of disintegrat 00:00: mouth [place] ing tablet 00 every 8 Medica l (eight) Branch hours as needed for Nausea and Vomiting (N/V). dicyclomine Yes [id number] 10mg Take 1 Univers 10 mg 5-25 capsule by ity of capsule 00:00: mouth 4 [place] 00 (four) Medical times Branch daily as needed for Abdominal pain. butalbital2018-04 Yes [id number] 1{tbl} Take 1 Univers acetaminoph 0-15 tablet by ity of en-caff 00:00: mouth [place] 50-325-40 00 every 6 Medical mg tablet (six) Branch hours as needed (Headache) . butbit2018-04 Yes [id number] 1{tbl} Take 1 Univers acetaminoph 0-15 tablet by ity of en-caff 00:00: mouth [place] 50-325-40 00 every 6 Medical mg tablet (six) Branch hours as needed (Headache) . butbital2018-04 Yes [id number] 1{tbl} Take 1 Univers acetaminoph 0-15 tablet by ity of en-caff 00:00: mouth [place] 50-325-40 00 every 6 Medical mg tablet (six) Branch hours as needed (Headache) . butbit2018-04 Yes [id number] 1{tbl} Take 1 Univers acetaminoph 0-15 tablet by ity of en-caff 00:00: mouth [place] 50-325-40 00 every 6 Medical mg tablet (six) Branch hours as needed (Headache) . butalbital2018-04 Yes [id number] 1{tbl} Take 1 Univers acetaminoph 0-15 tablet by ity of en-caff 00:00: mouth [place] 50-325-40 00 every 6 Medical mg tablet (six) Branch hours as needed (Headache) . Yes [id number] 1{tbl} Take 1 Tab Univers multivitami 2-20 by mouth ity of n ( 00:00[place]. [place] VITAMIN[place] 00 Medical tablet [place] Yes [id number] 1{tbl} Take 1 Tab Univers multivitami 2-20 by mouth ity of n ( 00:00[place] VITAMIN[place] 00 Medical tablet [place] Yes [id number] 1{tbl} Take 1 Tab Univers multivitami 2-20 by mouth ity of n ( 00:00[place] VITAMIN[place] 00 Medical tablet [place] Yes [id number] 1{tbl} Take 1 Tab Univers multivitami 2-20 by mouth ity of n ( 00:[place] VITAMIN[place] 00 Medical tablet [place] Yes [id number] 1{tbl} Take 1 Tab Univers multivitami 2-20 by mouth ity of n ( [place] VIT[place] 00 [facility] Immunizations Ordered Filled Immunization Date Status Comments [facility] e Immunization Name Name Tdap- (Boostrix, 2020-02-01 Completed Krysten cuevas Adacel) 00:00:00 Influenza Virus 2019-12-15 Completed Krysten henderson Vaccine, No 00:00:00 Preserv, age 6 months and up Tdap- (Boostrix, 2017-04-02 Completed Krysten cuevas Adacel) 00:00:00 Influenza Virus 2013-05-28 Completed Universit y of Vaccine (3+ yrs) 00:00:00 [facility] Influenza Virus 2013-05-28 Completed Universit y of Vaccine (3+ yrs) 00:00:00 [facility] Influenza Virus 2013-05-28 Completed Universit y of Vaccine (3+ yrs) 00:00:00 [facility] Influenza Virus 2013-05-28 Completed Universit y of Vaccine (3+ yrs) 00:00:00 [facility] Influenza Virus 2013-05-28 Completed Universit y of Vaccine (3+ yrs) 00:00:00 [facility] Influenza, 2013-05-28 Completed Krysten Guajardo Seasonal, 00:00:00 Injectable Vital Signs Vital [...] 2020-08-30 19:00:00 107 mm[Hg] Univer sity of pressure [place] [facility] Diastolic blood 2020-08-30 19:00:00 71 mm[Hg] Unive rsity of [facility] Medical Branch Heart rate 2020-08-30 19:00:00 66 /min Universi ty of [place] [facility] Respiratory rate 2020-08-30 19:00:00 18 /min [facility] ersity of [facility] Oxygen saturation in 2020-08-30 19:00:00 97 /min University of Arterial blood by [facility] Pulse oximetry Branch Body temperature 2020-08-30 17:57:00 37.06 Nata [facility] ersity [facility] Body weight 2020-08-30 12:00:00 81.647 kg Universi ty [facility] Medical Branch BMI 2020-08-30 12:00:00 30.90 kg/m2 Universi ty [facility] Branch Systolic blood 2020-04-04 04:00:00 118 mm[Hg] Univer sity of pressure [place] [facility] Diastolic blood 2020-04-04 04:00:00 70 mm[Hg] Unive rsity of pressure [place] [facility] Heart rate 2020-04-04 04:00:00 90 /min Universi ty of [facility] [facility] Branch Oxygen saturation in 2020-04-04 04:00:00 99 /min University of Arterial blood by [facility] Pulse oximetry Branch Body temperature 2020-04-04 03:10:00 37 Nata [facility] 2020-04-04 03:10:00 20 /min Univ [facility] Body height 2020-04-04 03:10:00 162.6 cm [facility] Body weight 2020-04-04 03:10:00 94.802 kg [facility] BMI 2020-04-04 03:10:00 35.87 kg/m2 [facility] Procedures Procedure Date / Time Performing Clinician Source Performed CT ABDOMEN PELVIS W 2020-08-30 19:12:01 Ba Faye [facility] CONTRAST [facility] US GALL BLADDER 2020-08-30 18:45:11 Ba Faye [facility] LIPASE 2020-08-30 18:02:00 Singer [facility] COMP. METABOLIC PANEL 2020-08-30 18:02:00 Jenn Manrique [facility] ([id number]) [facility] CBC WITH DIFF 2020-08-30 18:02:00 Singer [facility] URINALYSIS 2020-08-30 18:02:00 Singer [facility] POCT TEST 2020-08-30 18:02:00 Jenn Manrique [facility] COVID-19 (ID NOW RAPID 2020-08-30 18:02:00 Jenn Manrique [facility] TESTING) Medical Branch NOTICE OF PRIVACY 2020-08-30 17:47:49 Doctor Unassigned, No [facility] PRACTICES Name Medical Branch CONSENT/REFUSAL FOR 2020-08-30 17:47:37 Doctor Unassigned, No [facility] Name Medical Branch ASSIGNMENT OF BENEFITS 2020-04-04 02:52:52 Doctor Unassigned, No [facility] Name Medical Branch CONSENT/REFUSAL FOR 2020-04-04 02:51:37 Doctor Unassigned, No [facility] Name Medical Branch AUTHORIZATION FOR 2019-05-18 06:01:00 Doctor Unassigned, No [facility] RELEASE OF PHI Name Medical Branch Encounters Start End Encounter Admission Attending Care Care Encounter Source Date/Time Date/Time Type Type Clinicians Facility Department ID 2020-12-27 2020-12-27 Outpatient JENNIFER KRYSTEN FOLEY [id number] Krysten 00:00:00 00:00:00 KATIUSKA ancakelsey araiza 2020-12-26 2020-12-26 Outpatient LAB90 KRYSTEN FOLEY [id number] Krysten 14:30:00 14:30:00 Seybol d 2020-12-26 2020-12-26 Pre-surgic Wilfrido Rodriguez 1.2.840.114 [id number] Krysten 13:28:40 13:58:40 al Risk Katiuska Nahid 350.1.13.13 Se ybold Assessment Somogyi 1.2.7.2.686 [id number] 2020-08-30 2020-08-30 Emergency [facility] [id number] Univers 12:49:00 14:57:00 Ba B Lissett 350.1.13.10 i ty of [place] 4.2.7.2.686 [facility] [id number] [address] 2020-08-30 2020-08-30 Emergency X [facility] ERT [id number] Univers 12:49:00 12:49:00 ity [facility] 2020-08-30 2020-08-30 Orders Doctor STORM 1.2.840.114 [id number] Univers 00:00:00 00:00:00 Only Unassigned, CESIA 350.1.13.10 ity of [place] [facility] 4.2.7.2.686 Mushtaq [id number] [facility] 009 Branch 2020-04-03 2020-04-03 [facility] Morris Spangler [facility] [id number] Univers 20:52:00 22:20:00 Encounter Lissett 350.1.13.10 ity of [place] 4.2.7.2.686 [facility] [id number] [place] [id number] Branch 2020-04-03 2020-04-03 Outpatient P MORRIS SPANGLER [facility] MARY ALICE [id number] Univers 20:52:00 20:52:00 ity [facility] 2020-04-03 2020-04-03 Orders Doctor STORM 1.2.840.114 [id number] Univers 00:00:00 00:00:00 Only Unassigned, CESIA 350.1.13.10 ity of [place] [facility] 4.2.7.2.686 Mushtaq as [id number] [place] [address] Branch 2019-05-18 2019-05-18 Orders Doctor EMETERIO 1.2.840.114 [id number] Univers 00:00:00 00:00:00 Only Unassigned, CESIA 350.1.13.10 ity of [place] [facility] 4.2.7.2.686 Mushtaq as [id number] [place] [address] Branch Results Test Test Test Results Result Source Description Time Comments Comments CT ABDOMEN 2020-08 CT Abdomen and Pelvis with [place] PELVIS W -25 intravenous contrast. [facility] CONTRAST 19:22:3 HISTORY: Acute Abdominal pain. Medical [...] US GALL 2020-08 HISTORY: RUQ Abdominal pain. [place] BLADDER - TECHNIQUE: Gallbladder is of [place] 18:47:2 evaluated [...] nts APPEARANCE (test code = Clear Clear 0054239443) COLOR (test code = 5257550038) Yellow Yellow PH (test code = 7519906201) 4.8-8.0 SP GRAVITY (test code = 1.003-1.030 4116882944) GLU U QUAL (test code = Normal Normal 3068226303) BLOOD (test code = 6151524237) Negative Negative KETONES (test code = 5173232734) Negative Negative PROTEIN (test code = 2887-8) Negative Negative UROBILIN (test code = Normal Normal 4864171148) BILIRUBIN (test code = Negative Negative 3573292524) NITRITE (test code = 8909009532) Negative Negative LEUK ROSA (test code = Negative Negative 9017865150) RBC/HPF (test code = 4357881823) See_Comment H [Automated message] The system which ge nerated this result transmit snow reference range: 0 - 3 HP F. The reference range was not used to interpret th is result as normal/abnormal . WBC/HPF (test code = 9999448559) See_Comment [Automated message] The system which MySQL nerated this result transmit snow reference range: 0 - 5 HP F. The reference range was not used to interpret th is result as normal/abnormal . BACTERIA (test code = Few Negative A 5393894958) MUCOUS (test code = 3333599673) Slight Negative LPF A SQ EPITH (test code = HPF 7151352407) Lab Interpretation (test code = Abnormal 48030-8) [facility] [id number] 18:31:45 Test Item Value Reference Range Interpretation Comments NA (test code = 140 mmol/L 135-145 1821778324) K (test code = 4.0 mmol/L 3.5-5.0 2542303997) CL (test code = 104 mmol/L 98-108 6233981492) CO2 TOTAL (test code = 22 mmol/L 23-31 L 3379640021) AGAP (test code = 2-16 8847530408) BUN (test code = 17 mg/dL 7-23 3618334864) GLUCOSE (test code = 115 mg/dL 70-110 H 1101032362) CREATININE (test code = 0.63 mg/dL 0.50-1.04 9938536221) TOTAL BILI (test code = 0.7 mg/dL 0.1-1.5 4484071175) CALCIUM (test code = 9.6 mg/dL 8.6-10.6 8602187745) T PROTEIN (test code = 7.9 g/dL 6.3-8.2 8900252283) ALBUMIN (test code = 4.9 g/dL 3.5-5.0 4995684885) ALK PHOS (test code = 87 U/L 34-122 4427885897) ALTv (test code = 34 U/L 5-35 1742-6) AST(SGOT) (test code = 33 U/L 13-40 6779596918) eGFR (test code = mL/min/1.73m2 0991329721) MARVIN (test code = MARVIN) Association of [...] tests). Lab Interpretation Abnormal (test code = 12189-4) [facility] (ID NOW RAPID TESTING)2020-08-30 18:31:45 Test Item Value Reference Range Interpretation Comments SARS-CoV-2 Rapid ID NOW Not Detected Not Detected (test code = 78008-8) MARVIN (test code = MARVIN) ID NOW COVID-19 Assay is an isothermal nucleic acid amplification test intended for the qualitative detection of nucleic acid from SARS-CoV-2 viral RNA in nasopharyngeal (PACKAGING SUPERVISOR) specimens. It is used under Emergency Use [...] indicated. Lab Interpretation Normal (test code = 00595-5) [facility], [id number] 18:31:08 Test Item Value Reference Range Interpretation Comments LIPASE (test code = 8372207113) 64 U/L 0-220 Lab Interpretation (test code = Normal 06759-2) [facility] with [id number] 18:23:02 Test Item Value Reference Range Interpretation [...] RDW-SD (test code = 40.7 fL 39.0-49.9 81611-4) RDW-CV (test code = 11.7 % 12.0-15.5 L 788-0) PLT (test code = See_Comment [Automated 777-3) message] The system which generated this result transmit snow reference range : 166 - 358 10*3/ ?L. The reference range was not u sed to interpret th is result as normal/abnormal . MPV (test code = 9.9 fL 9.5-12.9 90965-7) NRBC/100 WBC (test See_Comment [Automat ed code = 2885339272) message] The system which generated this result transmit snow reference range : 0.0 - 10.0 /100 WBCs. The reference range was not used to interpret this result as normal/abnormal . NRBC x10^3 (test code <0.01 See_Comment [Auto mated = 6728563759) message] The system which generated this result transmit snow reference range : 10*3/?L. The reference range was not used to interpret this result as normal/abnormal . GRAN MAT (NEUT) % 85.9 % (test code = 770-8) IMM GRAN % (test code 0.40 % = 2749484302) LYMPH % (test code = 9.5 % 736-9) MONO % (test code = 2.6 % 5905-5) EOS % (test code = 1.3 % 713-8) BASO % (test code = 0.3 % 706-2) GRAN MAT x10^3(ANC) 11.01 10*3/uL 1.88-7.09 H (test code = 6703035879) IMM GRAN x10^3 (test 0.05 10*3/uL 0.00-0.06 code = 7084169144) LYMPH x10^3 (test code 1.21 10*3/uL 1.32-3.29 L = 731-0) MONO x10^3 (test code 0.33 10*3/uL 0.33-0.92 = 742-7) EOS x10^3 (test code = 0.16 10*3/uL 0.03-0.39 711-2) BASO x10^3 (test code 0.04 10*3/uL 0.01-0.07 = 704-7) Lab Interpretation Abnormal (test code = 43315-5) [facility] [id number] 18:02:00 Test Item Value Reference Range Interpretation Comments POCT PREG (test code = 1605) negative On board controls acceptable with C present Line (test code = 3574) Lab Interpretation (test code = Normal 39757-4) [facility]"
[2021-12-31] MEDS ORDERED: LORAZEPAM 1 MG TABLET ONE (20:01)
--- NOTE | 2021-12-31 21:23 | RAD REPORT ---
EXAM DESCRIPTION: RAD - Chest Single View - 12/31/2021 8:59 pm CLINICAL HISTORY: CHEST PAIN COMPARISON: Portable 09/29/2021 TECHNIQUE: AP portable chest image was obtained 12/31/2021 8:59 pm . FINDINGS: Lungs are clear. Heart and vasculature are normal. No measurable pleural effusion and no p neumothorax. No acute bony abnormality seen. No acute aortic findings suspected. IMPRESSION: No acute cardiopulmonary process. No significant change from comparison study.
--- NOTE | 2021-12-31 21:56 | ER ---
Nurse's Notes [facility] Name: Nataly Sparrow Age: 26 yrs Sex: Female : 1995 Arrival Date: 12/31/2021 Time: 19:25 Bed 5 Private MD: Diagnosis: Panic attack;Nonspecific chest pain Presentation: 12/31 19:40 Chief complaint: Chest pain that started 2 hours ago, numbness and tingling of hb extremities x 1 hour. Hx of anxiety, reports symptoms feel similar to previous attacks. Coronavirus screen: At this time, the client does not indicate any symptoms associated with coronavirus-19. Ebola Screen: No symptoms or risks identified at this time. Risk Assessment: Do you want to hurt yourself or someone else? Patient reports no desire to harm self or others. Onset of symptoms was December 31, 2021. 19:40 Method Of Arrival: Ambulatory hb 19:40 Acuity: BELKIS 3 hb 22:06 Initial Sepsis Screen: Does the patient meet any 2 criteria? No. Patient's initial ll3 sepsis screen is negative. Does the patient have a suspected source of infection? No. Patient's initial sepsis screen is negative. Historical: - Allergies: 19:41 No Known Allergies; hb - PMHx: 19:41 Anxiety; hb - PSHx: 19:41 Tummy tuck; hb Screenin:02 Abuse screen: Denies threats or abuse. Denies injuries from another. Nutritional ha1 screening: No deficits noted. Tuberculosis screening: No symptoms or risk factors identified. Fall Risk None identified. Assessment: 20:30 General: Appears uncomfortable, Behavior is cooperative, anxious. Pain: Denies pain. ha1 Neuro: Level of Consciousness is awake, alert, obeys commands, Oriented to person, place, time, situation, Reports having anxiety and she feels like she is having and anxiety attack.. Cardiovascular: Patient's skin is warm and dry. Rhythm is sinus rhythm. Respiratory: Airway is patent Trachea midline Respiratory effort is even, unlabored, Respiratory pattern is regular, symmetrical. 21:46 Reassessment: Pt c/o chest pain /, ERP notified Patient states symptoms have ll3 improved. Pain: Complains of pain in chest Pain does not radiate. Quality of pain is described as pressure, Pain began gradually, Is continuous. Vital Signs: 19:40 BP 119 / 105; Pulse 75; Resp 24; Temp 97.4(C); Pulse Ox 100% ; Pain 5/10; hb 20:30 BP 122 / 92; Pulse 62; Resp 23 S; Pulse Ox 100% on R/A; ha1 21:46 BP 126 / 80; Pulse 61; Resp 16; Pulse Ox 98% on R/A; ll3 ED Course: 19:25 Patient arrived in ED. ag3 19:31 Mackenzie Valencia MD is Attending Physician. sd2 19:39 EKG completed in triage. Results shown to MD. hb 19:41 Triage completed. hb 19:41 Arm band placed on. hb 20:00 Patient has correct armband on for positive identification. Bed in low position. Call ha1 light in reach. Side rails up X 1. Adult w/ patient. Client placed on continuous cardiac and pulse oximetry monitoring. NIBP monitoring applied. 21:01 XRAY Chest (1 view) In Process Unspecified. EDMS 22:05 No provider procedures requiring assistance completed. Patient did not have IV access ll3 during this emergency room visit. Patient maintains SpO2 saturation greater than 95% on room air. Administered Medications: 19:55 Drug: Ativan (LORazepam) 1 mg Route: PO; kd3 22:05 Follow up: Response: No adverse reaction; Marked relief of symptoms ll3 22:05 Drug: Ibuprofen 600 mg Route: PO; ll3 22:05 Follow up: Response: Medication administered at discharge. ll3 Medication: 22:06 VIS not applicable for this client. ll3 Outcome: 21:56 Discharge ordered by . sd2 22:05 Discharged to home ambulatory, with family. ll3 22:05 Condition: stable 22:05 Discharge instructions given to patient, family, Instructed on discharge instructions, follow up and referral plans. medication usage, Demonstrated understanding of instructions, follow-up care, medications, Prescriptions given X 1. 22:06 Patient left the ED. ll3 Signatures: Dispatcher [employer] EDMS Elsa Ramos, RN SANTO Aracely Barrientos ag3 Eric Benson RN RN 3 Lakeisha Ly RN SANTO kd3 Mackenzie Valencia MD MD wa2 Gabriella Howell RN RN 1
--- NOTE | 2021-12-31 21:56 | EDPHYS ---
Physician Documentation [facility] Name: Nataly Sparrow Age: 26 yrs Sex: Female : 1995 Arrival Date: 12/31/2021 Time: 19:25 Bed 5 Private MD: ED Physician Mackenzie Valencia HPI: 12/31 19:52 This 26 yrs old Female presents to ER via Ambulatory with complaints of Chest sd2 Pain, NUMB HAND AND FEET. 19:52 26 yo F with a hx of anxiety not currently on medication presents with CC of chest pain sd2 and tightness with associated numbness to both her hands and feet. She states it started earlier this morning and has progressively worsened since then despite taking Tylenol. States "I know something is wrong and this makes my anxiety worse." Endorses SOB with hyperventilation and feeling of near syncope. Denies any n/v/d or chance of .. Historical: - Allergies: 19:41 No Known Allergies; hb - PMHx: 19:41 Anxiety; hb - PSHx: 19:41 Tummy tuck; hb ROS: 19:52 Constitutional: Negative for fever, chills, and weight loss, Eyes: Negative for injury, sd2 pain, redness, and discharge, Cardiovascular: Positive for chest pain and near syncope, Negative for palpitations, and edema, Respiratory: Positive for shortness of breath, Negative for cough, wheezing. Abdomen/GI: Negative for abdominal pain, nausea, vomiting, diarrhea. MS/Extremity: Negative for injury and deformity, Skin: Negative for injury, rash, and discoloration, Neuro: Negative for headache, numbness and tingling. Psych: Positive for anxiety. Exam: 19:52 Constitutional: This is a well developed, well nourished patient who is awake, alert, sd2 and anxious appearing Head/Face: Normocephalic, atraumatic. Eyes: EOMI, normal conjunctiva bilaterally Chest/axilla: Normal chest wall appearance and motion. Nontender with no deformity. Cardiovascular: Regular rate and rhythm with a normal S1 and S2. No gallops, murmurs, or rubs. 2+ distal pulses. Respiratory: Lungs have equal breath sounds bilaterally, clear to auscultation and percussion. No rales, rhonchi or wheezes noted. No increased work of breathing, no retractions or nasal flaring. Pt is tachypneic and hyperventilating but is able to be verbally slowed down with focused breathing exercises. Abdomen/GI: Soft, non-tender, with normal bowel sounds. No guarding or rebound. No evidence of tenderness throughout. Skin: Warm, dry with normal turgor. Normal color with no rashes, no lesions, and no evidence of cellulitis. MS/ Extremity: Pulses equal, no cyanosis. Neurovascular intact. Full, normal range of motion. Ambulatory without difficulty. Psych: Awake, alert, with orientation to person, place and time. Anxious appearing, restless and agitated. 19:56 ECG was reviewed by the Attending Physician. Normal sinus rhythm, rate 75, sinus sd2 arrhythmia present, no STEMI criteria or ST-T wave changes, lead V2 unable to be interpreted Vital Signs: 19:40 BP 119 / 105; Pulse 75; Resp 24; Temp 97.4(C); Pulse Ox 100% ; Pain 5/10; hb 20:30 BP 122 / 92; Pulse 62; Resp 23 S; Pulse Ox 100% on R/A; ha1 21:46 BP 126 / 80; Pulse 61; Resp 16; Pulse Ox 98% on R/A; ll3 MDM: 19:31 Patient medically screened. sd2 19:52 Differential diagnosis: Differential diagnosis includes but is not limited to: ACS, sd2 DVT/PE, pneumothorax, dissection, musculoskeletal, anxiety, anemia, electrolyte abnormality, pneumonia, CHF, COPD among others. Data reviewed: vital signs, nurses notes. 21:53 Data reviewed: EKG, radiologic studies. Counseling: I had a detailed discussion with sd2 the patient and/or guardian regarding: the historical points, exam findings, and any diagnostic results supporting the discharge/admit diagnosis, radiology results, the need for outpatient follow up, to return to the emergency department if symptoms worsen or persist or if there are any questions or concerns that arise at home. Medical screen evaluation completed. EMTALA emergency medical condition absent. ED course: Pt much improved after Ativan given. Resting comfortably. Stable VS. Suspect panic attack. Pt advised of continued supportive care for symptoms and need for outpatient follow up. Will give Hydroxyzine prn and pt to discuss with PCP further options for long-term management of her anxiety.. 12/31 19:51 Order name: XRAY Chest (1 view); Complete Time: 21:27 sd2 Administered Medications: 19:55 Drug: Ativan (LORazepam) 1 mg Route: PO; kd3 22:05 Follow up: Response: No adverse reaction; Marked relief of symptoms ll3 22:05 Drug: Ibuprofen 600 mg Route: PO; ll3 22:05 Follow up: Response: Medication administered at discharge. ll3 Disposition Summary: 12/31/21 21:56 Discharge Ordered Location: Home sd2 Problem: an acute exacerbation sd2 Symptoms: have improved sd2 Condition: Stable sd2 Diagnosis - Panic attack sd2 - Nonspecific chest pain sd2 Followup: sd2 - With: Private Physician - When: 2 - 3 days - Reason: Recheck today's complaints, Continuance of care, Re-evaluation by your physician Discharge Instructions: - Discharge Summary Sheet sd2 - Panic Attack sd2 - Nonspecific Chest Pain, Adult sd2 - Managing Anxiety, Adult sd2 Forms: - Medication Reconciliation Form sd2 - Thank You Letter sd2 - Antibiotic Education sd2 - Prescription Opioid Use sd2 Prescriptions: - Hydroxyzine HCl 25 mg Oral Tablet - take 1 tablet by ORAL route every 6 hours As needed As needed for anxiety; 12 sd2 tablet; Refills: 0, Product Selection Permitted Signatures: Dispatcher [employer] EDMS Elsa Ramos RN RN Eric Benson RN SANTO 3 Lakeisha Ly RN RN kd3 Mackenzie Valencia MD MD sd2 Corrections: (The following items were deleted from the chart) 19:56 19:52 Constitutional: This is a well developed, well nourished patient who is awake, sd2 alert, and anxious appearing Head/Face: Normocephalic, atraumatic. Eyes: EOMI, normal conjunctiva bilaterally Chest/axilla: Normal chest wall appearance and motion. Nontender with no deformity. Cardiovascular: Regular rate and rhythm with a normal S1 and S2. No gallops, murmurs, or rubs. 2+ distal pulses. Respiratory: Lungs have equal breath sounds bilaterally, clear to auscultation and percussion. No rales, rhonchi or wheezes noted. No increased work of breathing, no retractions or nasal flaring. Pt is tachypneic and hyperventilating but is able to be verbally slowed down with focused breathing exercises. Abdomen/GI: Soft, non-tender, with normal bowel sounds. No guarding or rebound. No evidence of tenderness throughout. Skin: Warm, dry with normal turgor. Normal color with no rashes, no lesions, and no evidence of cellulitis. MS/ Extremity: Pulses equal, no cyanosis. Neurovascular intact. Full, normal range of motion. Ambulatory without difficulty. Psych: Awake, alert, with orientation to person, place and time. Behavior, mood, and affect are within normal limits. sd2
[2021-12-31] MEDS ORDERED: IBUPROFEN 200 MG TAB PO ONE (22:09)
[2022-01-02 20:58] VITALS: TEMP 97.4
[2022-01-02 21:12] VITALS: BP 126/80; O2SAT 98
== END 2021-12-31 22:06 | disposition home or self-care (01) ==
LOC: ER 19:24
DX: F41.0 Panic disorder [episodic paroxysmal anxiety] (principal); R07.9 Chest pain, unspecified
CPT/HCPCS: 71045; 99284

== ENCOUNTER 2022-01-01 08:54 | Emergency (ER) | payer OTHER ==
--- OUTSIDE RECORDS SUMMARY | 2022-01-01 08:57 | XMS REPORT | Continuity of Care Document ---
:1995 Author Organization [facility] t Address [address] [place] [address] Care Team Providers Name Role Phone KATIUSKA RODRIGUEZ Attending Clinician Unavailable LAB90 Attending Clinician Unavailable Katiuska Rodriguez MD Attending Clinician [phone] Yunier WOOL GROWER, Ba B Attending Clinician Doctor Unassigned, [place] Attending Clinician Unavailable Morris Spangler MD Attending [...] Univers immune immune 2-24 ity of 00:00: [address] Branch Maternal Maternal Disease Active Unive rs varicella, varicella, 2-24 it y of non-immune [place]immune [place] 00 [facility] Branch Chlamydia Chlamydia Disease Active Uni vers trachomati trachomati 2-24 it y of s s 00:00: [place] infection infection 00 Medi jesus of lower of lower Branch genitourin genitourin julieta sites julieta sites Supervisio Supervisio Disease Active U nivers n of n of 2-20 ity of normal normal 00:00: [place] 00 Medi jesus Branch Pelvic Pelvic Disease Active Univers cramping cramping 2-20 ity of in in 00:00: [place] antepartum antepartum 00 Me dical period period Branch Allergies, Adverse Reactions, Alerts Allergy Allergy Status Severity Reaction(s) Onset Inactive Treating Comm ents Source Name Type Date Date Clinician NO KNOWN Drug Active Univers ALLERGIE Class ity of S [facility] Social History Social Habit Start Date Stop Date Quantity Comments Source ASSERTION 2019-08-02 University of 00:00:00 [facility] History SDOH Krysten reeder Alcohol Std Drinks History SDOH Krysten reeder Alcohol Binge History [facility] Krysten reeder Alcohol Comment Exposure to Not [...] 5-6 Unive rsity of 00:00:00 00:00:00 months [facility] Sex Ass[birth year] At [birth year] Krysten Se ybold 00:00:00 00:00:00 Smoking Status Start Date Stop Date Source Former smoker 2020-08-30 00:00:00 2020-08-30 00:00:00 [facility] Medications Ordered Filled Start Stop Current [...] mg 00 :00 ONCE, 1 Medical dose, [facility] Branch 08/30/20 at 1430, KATIE
Fa culty member approving Restricted medication : JENN MANRIQUE diphenhydrA 2020- No 25mg 25 mg, Uni vers MINE 5-25 05-25 Slow IV ity of (BENADRYL) 19:30: 18:32 Push, [place] injection 00 :00 ONCE, 1 Medical 25 mg dose, [facility] Branch 08/30/20 at 1430, STAT metoclopram 2020- No 10mg 10 mg, Uni vers rufino HCl 5-25 05-25 Slow IV ity of (REGLAN) 19:30: 18:32 Push, [place] injection 00 :00 ONCE, 1 Medical 10 mg dose, [facility] Branch 08/30/20 at 1430, KATIE iopamidol 2020- No [id number] 120mL 120 mL, Univers (ISOVUE 5-25 05-25 [...] dose, 08/30/20 at 1330, KATIE ondansetron Yes [id number] 4mg Take 1 Univers 4 mg 5-25 tablet by ity of disintegrat 00:00: mouth [place] ing tablet 00 every 8 Medica l (eight) Branch hours as needed for Nausea and Vomiting (N/V). dicyclomine Yes [id number] 10mg Take 1 Univers 10 mg 5-25 capsule by ity of capsule 00:00: mouth 4 [place] 00 (four) Medical times Branch daily as needed for Abdominal pain. butalbital2018-04 Yes [id number] 1{tbl} Take 1 Univers acetaminoph 0-15 tablet by ity of en-caff 00:00: mouth [place] 50-325-40 00 every 6 Medical mg tablet (six) Branch hours as needed (Headache) . butbit2018-04 Yes [id number] 1{tbl} Take 1 Univers acetaminoph 0-15 tablet by ity of en-caff 00:00: mouth [place] 50-325-40 00 every 6 Medical mg tablet (six) Branch hours as needed (Headache) . butbital2018-04 Yes [id number] 1{tbl} Take 1 Univers acetaminoph 0-15 tablet by ity of en-caff 00:00: mouth [place] 50-325-40 00 every 6 Medical mg tablet (six) Branch hours as needed (Headache) . butbit2018-04 Yes [id number] 1{tbl} Take 1 Univers acetaminoph 0-15 tablet by ity of en-caff 00:00: mouth [place] 50-325-40 00 every 6 Medical mg tablet (six) Branch hours as needed (Headache) . butalbital2018-04 Yes [id number] 1{tbl} Take 1 Univers acetaminoph 0-15 tablet by ity of en-caff 00:00: mouth [place] 50-325-40 00 every 6 Medical mg tablet (six) Branch hours as needed (Headache) . Yes [id number] 1{tbl} Take 1 Tab Univers multivitami 2-20 by mouth ity of n ( 00:[place]. [place] VITAMIN[place] 00 Medical tablet [place] Yes [id number] 1{tbl} Take 1 Tab Univers multivitami 2-20 by mouth ity of n ( [place] VITAMIN[place] 00 Medical tablet [place] Yes [id number] 1{tbl} Take 1 Tab Univers multivitami 2-20 by mouth ity of n ( [place] VITAMIN[place] 00 Medical tablet [place] Yes [id number] 1{tbl} Take 1 Tab Univers multivitami 2-20 by mouth ity of n ( [place] VITAMIN[place] 00 Medical tablet [place] Yes [id number] 1{tbl} Take 1 Tab Univers multivitami 2-20 by mouth ity of n ( [place] VITAM[place] 00 [facility] Immunizations Ordered Filled Immunization Date Status Comments [facility] e Immunization Name Name Tdap- (Boostrix, 2020-02-01 Completed Krysten cuevas Adacel) 00:00:00 Influenza Virus 2019-12-15 Completed Krysten henderson Vaccine, No 00:00:00 Preserv, age 6 months and up Tdap- (Boostrix, 2017-04-02 Completed Krysten cuevas Adacel) 00:00:00 Influenza Virus 2013-05-28 Completed Universit y of Vaccine (3+ yrs) 00:00:00 [facility] Influenza Virus 2013-05-28 Completed Universit y of Vaccine (3+ yrs) 00:00:00 [facility] Influenza Virus 2013-05-28 Completed Universit y of Vaccine (3+ yrs) 00:00:00 [facility] Influenza Virus 2013-05-28 Completed Universit y of Vaccine (3+ yrs) 00:00:00 [facility] Influenza Virus 2013-05-28 Completed Universit y of Vaccine (3+ yrs) 00:00:00 [facility] Influenza, 2013-05-28 Completed Krysten Guajardo Seasonal, 00:00:00 [...] 19:00:00 107 mm[Hg] Univer sity of pressure [place] [facility] Diastolic blood 2020-08-30 19:00:00 71 mm[Hg] Unive rsity of [facility] Heart rate 2020-08-30 19:00:00 66 /min Universi ty of [place] Medical Branch Respiratory rate 2020-08-30 19:00:00 18 /min [facility] ersity of [facility] Oxygen saturation in 2020-08-30 19:00:00 97 /min University of Arterial blood by [facility] Pulse oximetry Branch Body temperature 2020-08-30 17:57:00 37.06 Nata [facility] ersity [facility] Body weight 2020-08-30 12:00:00 81.647 kg Universi ty [facility] [place] Medical Branch BMI 2020-08-30 12:00:00 30.90 kg/m2 Universi ty [facility] Branch Systolic blood 2020-04-04 04:00:00 118 mm[Hg] Univer sity of pressure [place] [facility] Diastolic blood 2020-04-04 04:00:00 70 mm[Hg] Unive rsity of pressure [place] [facility] Heart rate 2020-04-04 04:00:00 90 /min Universi ty of [facility] Branch Oxygen saturation in 2020-04-04 04:00:00 99 /min University of Arterial blood by [facility] Pulse oximetry Branch Body temperature 2020-04-04 03:10:00 37 Nata [facility] Respiratory rate 2020-04-04 03:10:00 20 /min Univ [facility] Body height 2020-04-04 03:10:00 162.6 cm [facility] Body weight 2020-04-04 03:10:00 94.802 kg [facility] BMI 2020-04-04 03:10:00 35.87 kg/m2 [facility] Procedures Procedure Date / Time Performing Clinician Source Performed CT ABDOMEN PELVIS W 2020-08-30 19:12:01 Ba Faye [facility] CONTRAST [facility] US GALL BLADDER 2020-08-30 18:45:11 Ba Faye [facility] LIPASE 2020-08-30 18:02:[address] [facility] COMP. METABOLIC PANEL 2020-08-30 18:02:00 Jenn Manrique [facility] ([id number]) [facility] CBC WITH DIFF 2020-08-30 18:02:[address] [facility] URINALYSIS 2020-08-30 18:02:[address] [facility] POCT TEST 2020-08-30 18:02:00 Jenn Manrique [facility] COVID-19 (ID NOW RAPID 2020-08-30 18:02:00 Jenn Manrique [facility] TESTING) Medical Branch NOTICE OF PRIVACY 2020-08-30 17:47:49 Doctor Unassigned, No [facility] PRACTICES Name Medical Branch CONSENT/REFUSAL FOR 2020-08-30 17:47:37 Doctor Unassigned, No [facility] Name Medical Branch ASSIGNMENT OF BENEFITS 2020-04-04 02:52:52 Doctor Unassigned, No [facility] Name Medical Branch CONSENT/REFUSAL FOR 2020-04-04 02:51:37 Doctor Unassigned, No [facility] Name Medical Branch AUTHORIZATION FOR 2019-05-18 06:01:00 Doctor Unassigned, No [facility] RELEASE OF PHI Name Medical Branch Encounters Start End Encounter Admission Attending Care Care Encounter Source Date/Time Date/Time Type Type Clinicians Facility Department ID 2020-12-27 2020-12-27 Outpatient JENNIFER KRYSTEN FOLEY [id number] Krysten 00:00:00 00:00:00 KATIUSKA ancakelsey araiza 2020-12-26 2020-12-26 Outpatient LAB90 KRYSTEN FOLEY [id number] Krysten 14:30:00 14:30:00 Seybol d 2020-12-26 2020-12-26 Pre-surgic Wilfrido Rodriguez [id number] Krysten 13:28:40 13:58:40 al Risk Katiuska Nahid 350.1.13.13 Se ybold Assessment Somogyi 1.2.7.2.686 [id number] 2020-08-30 2020-08-30 Emergency [facility] [id number] Univers 12:49:00 14:57:00 Ba B Lissett 350.1.13.10 i ty of [place] 4.2.7.2.686 [facility] [id number] [address] 2020-08-30 2020-08-30 Emergency X [facility] ERT [id number] Univers 12:49:00 12:49:00 ity [facility] 2020-08-30 2020-08-30 Orders Doctor STORM 1.2.840.114 [id number] Univers 00:00:00 00:00:00 Only Unassigned, CESIA 350.1.13.10 ity of [place] [facility] 4.2.7.2.686 Mushtaq [id number] [facility] 009 Branch 2020-04-03 2020-04-03 [facility] Morris Spangler [facility] 1.2.840.114 [id number] Univers 20:52:00 22:20:00 Encounter Lissett 350.1.13.10 ity of [place] 4.2.7.2.686 [facility] [id number] [place] [id number] Branch 2020-04-03 2020-04-03 Outpatient P MORRIS SPANGLER [facility] MARY ALICE [id number] Univers 20:52:00 20:52:00 ity [facility] 2020-04-03 2020-04-03 Orders Doctor STORM 1.2.840.114 [id number] Univers 00:00:00 00:00:00 Only Unassigned, CESIA 350.1.13.10 ity of [place] [facility] 4.2.7.2.686 Mushtaq as [id number] [place] [address] Branch 2019-05-18 2019-05-18 Orders Doctor EMETERIO 1.2.840.114 [id number] Univers 00:00:00 00:00:00 Only Unassigned, CESIA 350.1.13.10 ity of [place] [facility] 4.2.7.2.686 Mushtaq as [id number] [place] [address] Branch Results Test Test Test Results Result Source Description Time Comments Comments CT ABDOMEN 2020-08 CT Abdomen and Pelvis with [place] PELVIS W -25 intravenous contrast. [facility] CONTRAST 19:22:3 HISTORY: Acute Abdominal pain. Medical [...] US GALL 2020-08 HISTORY: RUQ Abdominal pain. [place] BLADDER - TECHNIQUE: Gallbladder is of [place] [...] nts APPEARANCE (test code = Clear Clear 9271571303) COLOR (test code = 9655326960) Yellow Yellow PH (test code = 6532971671) 4.8-8.0 SP GRAVITY (test code = 1.003-1.030 7029764428) GLU U QUAL (test code = Normal Normal 6218599240) BLOOD (test code = 0499673940) Negative Negative KETONES (test code = 3470421696) Negative Negative PROTEIN (test code = 2887-8) Negative Negative UROBILIN (test code = Normal Normal 7751934826) BILIRUBIN (test code = Negative Negative 9712056310) NITRITE (test code = 0687740279) Negative Negative LEUK ROSA (test code = Negative Negative 0339147569) RBC/HPF (test code = 8181818173) See_Comment H [Automated message] The system which ge nerated this result transmit snow reference range: 0 - 3 HP F. The reference range was not used to interpret th is result as normal/abnormal . WBC/HPF (test code = 4950705919) See_Comment [Automated message] The system which [employer] nerated this result transmit snow reference range: 0 - 5 HP F. The reference range was not used to interpret th is result as normal/abnormal . BACTERIA (test code = Few Negative A 8708856111) MUCOUS (test code = 2845724357) Slight Negative LPF A SQ EPITH (test code = HPF 2807310518) Lab Interpretation (test code = Abnormal 78541-6) [facility] [id number] 18:31:45 Test Item Value Reference Range Interpretation Comments NA (test code = 140 mmol/L 135-145 0685224080) K (test code = 4.0 mmol/L 3.5-5.0 0303583625) CL (test code = 104 mmol/L 98-108 6672051886) CO2 TOTAL (test code = 22 mmol/L 23-31 L 9068222667) AGAP (test code = 2-16 5752532128) BUN (test code = 17 mg/dL 7-23 0420427038) GLUCOSE (test code = 115 mg/dL 70-110 H 5488284088) CREATININE (test code = 0.63 mg/dL 0.50-1.04 0572228355) TOTAL BILI (test code = 0.7 mg/dL 0.1-1.5 2061883297) CALCIUM (test code = 9.6 mg/dL 8.6-10.6 7927560974) T PROTEIN (test code = 7.9 g/dL 6.3-8.2 9173442704) ALBUMIN (test code = 4.9 g/dL 3.5-5.0 6335303476) ALK PHOS (test code = 87 U/L 34-122 4750387625) ALTv (test code = 34 U/L 5-35 1742-6) AST(SGOT) (test code = 33 U/L 13-40 1918571253) eGFR (test code = mL/min/1.73m2 8952807213) MARVIN (test code = MARVIN) Association of [...] tests). Lab Interpretation Abnormal (test code = 71780-6) [facility] NOW RAPID TESTING)2020-08-30 18:31:45 Test Item Value Reference Range Interpretation Comments SARS-CoV-2 Rapid ID NOW Not Detected Not Detected (test code = 55918-5) MARVIN (test code = MARVIN) ID NOW COVID-19 Assay is an isothermal nucleic acid amplification test intended for the qualitative detection of nucleic acid from SARS-CoV-2 viral RNA in nasopharyngeal (AREA MECHANIC) specimens. It is used under Emergency Use [...] indicated. Lab Interpretation Normal (test code = 29711-9) [facility], [id number] 18:31:08 Test Item Value Reference Range Interpretation Comments LIPASE (test code = 2851672691) 64 U/L 0-220 Lab Interpretation (test code = Normal 29008-4) [facility] with [id number] 18:23:02 Test Item Value Reference Range Interpretation [...] RDW-SD (test code = 40.7 fL 39.0-49.9 29342-0) RDW-CV (test code = 11.7 % 12.0-15.5 L 788-0) PLT (test code = See_Comment [Automated 777-3) message] The system which generated this result transmit snow reference range : 166 - 358 10*3/ ?L. The reference range was not u sed to interpret th is result as normal/abnormal . MPV (test code = 9.9 fL 9.5-12.9 85028-4) NRBC/100 WBC (test See_Comment [Automat ed code = 3500360052) message] The system which generated this result transmit snow reference range : 0.0 - 10.0 /100 WBCs. The reference range was not used to interpret this result as normal/abnormal . NRBC x10^3 (test code <0.01 See_Comment [Auto mated = 2939473382) message] The system which generated this result transmit snow reference range : 10*3/?L. The reference range was not used to interpret this result as normal/abnormal . GRAN MAT (NEUT) % 85.9 % (test code = 770-8) IMM GRAN % (test code 0.40 % = 6853999662) LYMPH % (test code = 9.5 % 736-9) MONO % (test code = 2.6 % 5905-5) EOS % (test code = 1.3 % 713-8) BASO % (test code = 0.3 % 706-2) GRAN MAT x10^3(ANC) 11.01 10*3/uL 1.88-7.09 H (test code = 3184496284) IMM GRAN x10^3 (test 0.05 10*3/uL 0.00-0.06 code = 5059790484) LYMPH x10^3 (test code 1.21 10*3/uL 1.32-3.29 L = 731-0) MONO x10^3 (test code 0.33 10*3/uL 0.33-0.92 = 742-7) EOS x10^3 (test code = 0.16 10*3/uL 0.03-0.39 711-2) BASO x10^3 (test code 0.04 10*3/uL 0.01-0.07 = 704-7) Lab Interpretation Abnormal (test code = 13640-9) [facility] [id number] 18:02:00 Test Item Value Reference Range Interpretation Comments POCT PREG (test code = 1605) negative On board controls acceptable with C present Line (test code = 3574) Lab Interpretation (test code = Normal 42874-5) [facility]"
[2022-01-01] MEDS ORDERED: ASPIRIN 81 MG CHEWABLE TABLET ONE (09:30)
[2022-01-01 09:51] LABS: Absolute Lymphocytes (CBC) 1.3 K/uL (0.7-4.9); Hematocrit 43.2 % (36.0-45.0); Lymphocytes % 19.7 % (15.3-44.8); MPV 7.5 fL (7.6-11.3); RBC Red Blood Cell Count 4.54 M/uL (3.86-4.86)
[2022-01-01] MEDS ORDERED: LORazepam 2 MG/ML VIAL ONE (09:59)
[2022-01-01 10:09] LABS: Albumin 4.2 g/dL (3.4-5.0); Bilirubin Direct 0.3 mg/dL (0-0.2); Bilirubin Total 1.1 mg/dL (0.2-1.0); Magnesium 1.9 mg/dL (1.8-2.4); Potassium 3.8 mmol/L (3.5-5.1); Protein, Total 8.1 g/dL (6.4-8.2); Troponin High Sensitivity 10.1 pg/mL (<58.9)
--- NOTE | 2022-01-01 10:13 | RAD REPORT ---
EXAM DESCRIPTION: Luis Angel Single View01/01/2022 9:44 am CLINICAL HISTORY: Chest pain COMPARISON: December 31, 2021 FINDINGS: The lungs appear clear of acute infiltrate. The heart is normal size IMPRESSION: No acute abnormalities displayed
[2022-01-01] MEDS ORDERED: KETOROLAC 30 MG/ML INJ ONE (11:20)
--- NOTE | 2022-01-01 11:32 | ER ---
Nurse's Notes [facility] Name: Nataly Sparrow Age: 26 yrs Sex: Female : 1995 Arrival Date: 01/01/2022 Time: 08:55 Bed 12 Private MD: Diagnosis: Chest pain, unspecified;Generalized anxiety disorder Presentation: 01/01 08:59 Chief complaint: Patient states: Midsternal CP since yesterday at 1400, seen here and jl7 discharged with EKG and chest X-ray yesterday evening, states "They said it's my anxiety but I think it's more than that.". Coronavirus screen: At this time, the client does not indicate any symptoms associated with coronavirus-19. Ebola Screen: No symptoms or risks identified at this time. Risk Assessment: Do you want to hurt yourself or someone else? Patient reports no desire to harm self or others. Onset of symptoms was December 31, 2021 at 14:00. 08:59 Method Of Arrival: Ambulatory [facility] 08:59 Acuity: BELKIS 3 jl7 09:04 Initial Sepsis Screen: Does the patient meet any 2 criteria? No. Patient's initial jl7 sepsis screen is negative. Does the patient have a suspected source of infection? No. Patient's initial sepsis screen is negative. Triage Assessment: 09:02 General: Appears in no apparent distress. uncomfortable, Behavior is cooperative, jl7 anxious. Pain: Complains of pain in mid-sternal area Pain does not radiate. Pain currently is 9 out of 10 on a pain scale. Quality of pain is described as pressure, Pain began 1 day ago. Is continuous. Cardiovascular: Patient's skin is warm and dry. 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 - Social history:: Smoking status: Reported history of juuling and/or vaping. Screenin:24 Abuse screen: Denies threats or abuse. Nutritional screening: No deficits noted. bm7 Tuberculosis screening: No symptoms or risk factors identified. Fall Risk None identified. Assessment: 09:04 Reassessment: LEEANNE Contreras in triage assessing pt. jl7 10:12 Reassessment: pt tearful, hyperventilating, has hx of anxiety, pt is worried she has iw cancer , states "I know something is wrong, this isn't right". 11:24 Reassessment: No changes from previously documented assessment. Patient and/or family bm7 updated on plan of care and expected duration. Pain level reassessed. Patient is alert, oriented x 3, equal unlabored respirations, skin warm/dry/pink. Patient states symptoms have not improved. Vital Signs: 08:59 Weight 77.11 kg; Height 5 ft. 4 in. (162.56 cm); Pain 9/10; jl7 09:04 BP 96 / 77; Pulse 88; Resp 20 S; Temp 98.2; Pulse Ox 100% on R/A; jl7 09:50 BP 118 / 80; Pulse 62; Resp 16; Temp 98.1; Pulse Ox 100% on R/A; iw 12:27 BP 120 / 76; Pulse 64; Resp 16; Pulse Ox 100% on R/A; bm7 08:59 Body Mass Index 29.18 (77.11 kg, 162.56 cm) jl7 ED Course: 08:55 Patient arrived in ED. am2 08:59 [facility] Helton [facility]NP [facility] jh7 08:59 Houston Romero DO is Attending Physician. jh7 09:02 Triage completed. jl7 09:02 Arm band placed on right wrist. jl7 09:31 Sanam Guerrero, RN is Primary Nurse. iw 09:47 XRAY Chest (1 view) In Process Unspecified. EDMS 11:24 Appears restless. Appears tearful. Awaiting re-evaluation by ER provider. bm7 11:24 Patient has correct armband on for positive identification. Placed in gown. Bed in low bm7 position. Call light in reach. Side rails up X 1. Adult w/ patient. Client placed on continuous cardiac and pulse oximetry monitoring. NIBP monitoring applied. radiation monitor on. Door closed. Noise minimized. Lights dimmed. Warm blanket given. Verbal reassurance given. 11:24 No provider procedures requiring assistance completed. Initial lab(s) drawn, by ED 7 staff, sent to lab. Inserted saline lock: 22 gauge in left antecubital area, using aseptic technique. Blood collected. Patient maintains SpO2 saturation greater than 95% on room air. 12:27 IV discontinued, intact, bleeding controlled, No redness/swelling at site. Pressure 7 dressing applied. Administered Medications: 09:58 Drug: Aspirin Chewable Tablet 324 mg Route: PO; iw 12:26 Follow up: Response: No adverse reaction [facility] 09:58 Drug: Ativan (LORazepam) 1 mg Route: IVP; Site: left antecubital; iw 12:27 Follow up: Response: Anxiety decreased 7 11:23 Drug: Ketorolac 15 mg Route: IVP; Site: left antecubital; bm7 12:27 Follow up: Response: Pain is decreased 7 Medication: 09:04 VIS not applicable for this client. 7 Outcome: 11:32 Discharge ordered by . Paige 12:27 Discharged to home ambulatory, with family. [facility] 12:27 Condition: good 12:27 Discharge instructions given to patient, Instructed on discharge instructions, follow up and referral plans. Demonstrated understanding of instructions, follow-up care. 12:28 Patient left the ED. [facility] Signatures: Dispatcher [employer] EDMS Sanam Guerrero RN RN Mary Sparrow RN RN [email or web address] Rosana Nagel Brittany, RN RN 7 Diane Helton, WEB SITE ADMINISTRATOR WEB SITE ADMINISTRATOR 7 Corrections: (The following items were deleted from the chart) 09:05 09:02 Home Meds: None; 7 [facility]
--- NOTE | 2022-01-01 11:32 | EDPHYS ---
Physician Documentation [facility] Name: Nataly Sparrow Age: 26 yrs Sex: Female : 1995 Arrival Date: 01/01/2022 Time: 08:55 Bed 12 Private MD: ED Physician Houston Romero HPI: 01/01 09:05 This 26 yrs old Female presents to ER via Ambulatory with complaints of Chest jh7 Pain. 09:05 Onset: The symptoms/episode began/occurred yesterday. Associated signs and symptoms: jh7 Pertinent positives: Anxiety, Pertinent negatives: abdominal pain, cough, diarrhea, dysuria, fever, headache, shortness of breath, vomiting. Patient reports chest pain and anxiety since yesterday. States that she takes clonazepam as needed and has not had any in a while. Denies shortness of breath, dizziness, or any other symptoms at this time.. 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 - Social history:: Smoking status: Reported history of juuling and/or vaping. ROS: 09:05 Constitutional: Negative for fever, chills, and weight loss, Eyes: Negative for injury, jh7 pain, redness, and discharge, ENT: Negative for injury, pain, and discharge, Respiratory: Negative for shortness of breath, cough, wheezing, and pleuritic chest pain, Abdomen/GI: Negative for abdominal pain, nausea, vomiting, diarrhea, and constipation, Back: Negative for injury and pain, MS/Extremity: Negative for injury and deformity, Skin: Negative for injury, rash, and discoloration, Neuro: Negative for headache, weakness, numbness, tingling, and seizure. 09:05 Cardiovascular: Positive for chest pain, Negative for edema, palpitations. 09:05 Psych: Positive for anxiety, Negative for depression, suicidal ideation. 09:05 All other systems are negative. Exam: 09:05 Head/Face: Normocephalic, atraumatic. Eyes: Pupils equal round and reactive to light, jh7 extra-ocular motions intact. Lids and lashes normal. Conjunctiva and sclera are non-icteric and not injected. Cornea within normal limits. Periorbital areas with no swelling, redness, or edema. ENT: Nares patent. No nasal discharge, no septal abnormalities noted. Tympanic membranes are normal and external auditory canals are clear. Oropharynx with no redness, swelling, or masses, exudates, or evidence of obstruction, uvula midline. Mucous membranes moist. Neck: Trachea midline, no thyromegaly or masses palpated, and no cervical lymphadenopathy. Supple, full range of motion without nuchal rigidity, or vertebral point tenderness. No Meningismus. Cardiovascular: Regular rate and rhythm with a normal S1 and S2. No gallops, murmurs, or rubs. Normal PMI, no JVD. No pulse deficits. Respiratory: Lungs have equal breath sounds bilaterally, clear to auscultation and percussion. No rales, rhonchi or wheezes noted. No increased work of breathing, no retractions or nasal flaring. Abdomen/GI: Soft, non-tender, with normal bowel sounds. No distension or tympany. No guarding or rebound. No evidence of tenderness throughout. Back: No spinal tenderness. No costovertebral tenderness. Full range of motion. Skin: Warm, dry with normal turgor. Normal color with no rashes, no lesions, and no evidence of cellulitis. MS/ Extremity: Pulses equal, no cyanosis. Neurovascular intact. Full, normal range of motion. Neuro: Awake and alert, GCS 15, oriented to person, place, time, and situation. Motor strength 5/5 in all extremities. Sensory grossly intact. Normal gait. 09:05 Constitutional: The patient appears alert, awake, anxious. Vital Signs: 08:59 Weight 77.11 kg; Height 5 ft. 4 in. (162.56 cm); Pain 9/10; jl7 09:04 BP 96 / 77; Pulse 88; Resp 20 S; Temp 98.2; Pulse Ox 100% on R/A; jl7 09:50 BP 118 / 80; Pulse 62; Resp 16; Temp 98.1; Pulse Ox 100% on R/A; iw 12:27 BP 120 / 76; Pulse 64; Resp 16; Pulse Ox 100% on R/A; bm7 08:59 Body Mass Index 29.18 (77.11 kg, 162.56 cm) 7 MDM: 09:06 Patient medically screened. [facility] 11:30 Differential diagnosis: viral Infection, bacterial infection, bronchitis, pneumonia [facility] Acute MN, PE. Data reviewed: vital signs, nurses notes, lab test result(s), EKG, radiologic studies. Data interpreted: Pulse oximetry: is 100 %. Interpretation: normal. Counseling: I had a detailed discussion with the patient and/or guardian regarding: the historical points, exam findings, and any diagnostic results supporting the discharge/admit diagnosis, to return to the emergency department if symptoms worsen or persist or if there are any questions or concerns that arise at home. ED course: Patient remained stable throughout the ER visit. Her unremarkable lab and radiology results were discussed with her. Advised her to follow-up with her PCP to get on a daily anxiety medication. If she develops any new concerning symptoms, she may return to the ER for further eval.. 01/01 09:07 Order name: Basic Metabolic Panel; Complete Time: 10:33 [facility] 01/01 09:07 Order name: CBC with Diff; Complete Time: 10:33 [facility] 01/01 09:07 Order name: D-Dimer; Complete Time: 10:33 [facility] 01/01 09:07 Order name: LFT's; Complete Time: 10:33 [facility] 01/01 09:07 Order name: Magnesium; Complete Time: :33 [facility] 01/01 09:07 Order name: PT-INR; Complete Time: 10:33 [facility] 01/01 09:07 Order name: Troponin HS; Complete Time: 10:33 [facility] 01/01 09:07 Order name: XRAY Chest (1 view); Complete Time: 10:33 [facility] 01/01 09:07 Order name: EKG; Complete Time: 09:08 [facility] 01/01 09:07 Order name: Cardiac monitoring; Complete Time: 09:24 [facility] 01/01 09:07 Order name: EKG - Nurse/Tech; Complete Time: 09: [facility] 01/01 09:07 Order name: IV Saline Lock; Complete Time: 09:31 [facility] 01/01 09:07 Order name: Labs collected and sent; Complete Time: 09:32 [facility] 01/01 09:07 Order name: O2 Per Protocol; Complete Time: :24 jh7 01/01 09:07 Order name: O2 Sat Monitoring; Complete Time: : jh7 EC: Rate is 87 beats/min. Rhythm is regular. QRS [place] is Normal. NH interval is normal at jh7 122 msec. QRS interval is normal at 72 msec. QT interval is normal at 378 msec. No Q waves. T waves are Normal. No ST changes noted. Clinical impression: Normal ECG. Administered Medications: : Drug: Aspirin Chewable Tablet 324 mg Route: PO; iw 12:26 Follow up: Response: No adverse reaction bm7 09:58 Drug: Ativan (LORazepam) 1 mg Route: IVP; Site: left antecubital; iw 12:27 Follow up: Response: Anxiety decreased bm7 11:23 Drug: Ketorolac 15 mg Route: IVP; Site: left antecubital; bm7 12:27 Follow up: Response: Pain is decreased 7 Disposition: 01/02 08:28 Co-signature as Attending Physician, Houston RAGLAND was immediately available on-site ms3 in the Emergency Department for consultation in the care of the patient. . Disposition Summary: 01/01/22 11:32 Discharge Ordered Location: Home [facility] Problem: new [facility] Symptoms: have improved [facility] Condition: Stable [facility] Diagnosis - Chest pain, unspecified 7 - Generalized anxiety disorder [facility] Followup: [facility] - With: Private Physician - When: 2 - 3 days - Reason: Recheck today's complaints Discharge Instructions: - Discharge Summary Sheet 7 - Nonspecific Chest Pain, Adult 7 - Chest Wall Pain, [id number] 7 - Generalized Anxiety Disorder, Adult [facility] Forms: - Medication Reconciliation Form [facility] - Thank You Letter [facility] Signatures: Dispatcher [employer] Sanam Jaquez RN RN iw Leal, Jahala RN Houston Teran DO DO ms3 Catie Tapia RN RN bm7 Diane Helton FNP FNP 7 Corrections: (The following items were deleted from the chart) 01/01 09:05 09:02 Home Meds: None; 7 7
--- NOTE | 2022-01-02 17:29 | EKG ---
Test Date: 2021-12-31 Test Time: 19:34:54 Field Cashier: MEASUREMENT RESULTS: Intervals: Rate: 75 GA: 144 QRSD: 68 QT: 386 QTc: 431 [place]: P: 72 GA: 144 QRS: 84 T: 89 INTERPRETIVE STATEMENTS: Normal sinus rhythm with sinus arrhythmia Nonspecific ST abnormality Abnormal ECG Compared to ECG 09/29/2021 20:10:12 ST (T wave) deviation now present Electronically Signed On 01-02-22 17:27:17 CDT by John Kumar
--- NOTE | 2022-01-03 13:12 | EKG ---
Test Date: 2022-01-01 Test Time: 09:03:52 County Manager: TU MEASUREMENT RESULTS: Intervals: Rate: 87 [place]: 122 QRSD: 72 QT: 378 QTc: 454 [place]: P: 55 [place]: 122 QRS: 89 T: 57 INTERPRETIVE STATEMENTS: Normal sinus rhythm with sinus arrhythmia Normal ECG Compared to ECG 12/31/2021 19:34:54 ST (T wave) deviation no longer present Electronically Signed On 01-03-22 13:07:44 CDT by John Kumar
[2022-01-03 16:13] VITALS: O2SAT 100
[2022-01-03 16:19] VITALS: BP 120/76
[2022-01-03 16:39] VITALS: TEMP 98.1
== END 2022-01-01 12:28 | disposition home or self-care (01) ==
LOC: ER 08:54
DX: R07.9 Chest pain, unspecified (principal); F41.1 Generalized anxiety disorder
CPT/HCPCS: 36415; 71045; 80048; 80076; 83735; 84484; 85025; 85379; 85610; 93005; 96374; 96375; 99285

== ENCOUNTER 2024-01-08 08:27 | Emergency (ER) | payer SELFPAY ==
[2024-01-08 08:59] LABS: Specific Gravity 1.002 (1.005-1.030); Specific Gravity < 1.005 (1.005-1.030); Sqamous Epithelial <5 /HPF (None Seen); Urine Bacteria None Seen /HPF (<20); Urine Bilirubin NEGATIVE (Negative); Urine Blood 2+ (Negative); Urine Clarity Clear (Clear); Urine Color Colorless (Yellow); Urine Culture Reflex Order NOT NEEDED; Urine Glucose NEGATIVE (Negative); Urine Ketones NEGATIVE (Negative); Urine Microscopic Reflex YN ORDER UMIC; Urine Nitrite NEGATIVE (Negative); Urine Protein NEGATIVE (Negative); Urine RBC None Seen /HPF (None Seen); Urine Urobilinogen Normal (Normal); Urine WBC None Seen /HPF (<5); Urine Yeast (Budding) Trace /HPF (None Seen); Urine pH 6.5 (5.0-7.0)
[2024-01-08 09:11] LABS: Absolute Eosinophils 0.2 K/uL (0-0.5); Absolute Lymphocytes (CBC) 1.5 K/uL (0.7-4.9); Absolute Monocytes 0.3 K/uL (0.1-1.3); Absolute Neutrophil 4.4 K/uL (1.8-8.0); Basophils % 0.3 % (0-1.3); Eosinophils % 3.5 % (0-4.4); Hematocrit 39.4 % (36.0-45.0); Hemoglobin 13.5 g/dL (12.0-15.0); Lymphocytes % 22.7 % (15.3-44.8); MCH 31.7 pg (27.0-35.0); MCHC 34.2 g/dL (32.0-36.0); MCV 92.7 fL (80-100); MPV 7.6 fL (7.6-11.3); Monocytes % 5.4 % (3.3-12.3); Neutrophils % 68.1 % (41.7-73.7); Nucleated Red Blood Cells % 0.1 % (0-0); Platelets 286 thou/uL (152-406); RBC Red Blood Cell Count 4.25 M/uL (3.86-4.86); Red Cell Distribution Width 13.1 % (12.1-15.2)
[2024-01-08 09:21] LABS: ALT/SGPT 25 U/L (13-56); Albumin 3.7 g/dL (3.4-5.0); Alkaline Phosphatase 62 U/L (45-117); Anion Gap 5.9 mEq/L (5.0-15.0); BUN Blood Urea Nitrogen 11 mg/dL (7-18); Bicarbonate 26 mEq/L (21-32); Bilirubin Total 0.4 mg/dL (0.2-1.0); Globulin 3.6 g/dL (2.3-3.5); Glomerular Filtration Rate 105 ml/min (=/>90); Glucose Level 109 mg/dL (74-106); Lipase 29 U/L (13-75); Potassium 3.9 mEq/L (3.5-5.1); Protein, Total 7.3 g/dL (6.4-8.2); Sodium Level 137 mEq/L (136-145)
[2024-01-08 09:22] LABS: AST/SGOT < 10 U/L (15-37)
--- NOTE | 2024-01-08 09:47 | RAD REPORT ---
EXAMINATION: CT ABDOMEN AND PELVIS WITH CONTRAST CLINICAL INDICATION: Abdominal pain TECHNIQUE: CT abdomen and pelvis was performed, after the administration of 100 cc Isovue-300.. Sagit rudi and coronal reconstructions were obtained. One or more of the following dose reduction techniques were used: Automated exposure control, adjustment of the mA and/or kV according to patien t size, and/or iterative reconstruction. Unless otherwise specified, incidental findings do not require dedicated imaging follow-up. [id number]. Oral contrast was not given which limits evaluation of b owel and appendix. COMPARISON: none FINDINGS: The liver, spleen, pancreas, adrenals and kidneys appear unremarkable There is no evidence of diverticulitis Normal appendix. No adnexal mass. IUD within the uterus. : IMPRESSION: No acute abnormalities displayed
[2024-01-08] MEDS ORDERED: MORPHINE 4 MG/ML SYR ONE (10:01)
[2024-01-08] MEDS ORDERED: KETOROLAC 30 MG/ML INJ ONE ×2 (10:01→12:26)
--- NOTE | 2024-01-08 12:16 | EDPHYS ---
Physician Documentation [facility] Name: Nataly Sparrow Age: 29 yrs Sex: Female : 1995 Arrival Date: 01/08/2024 Time: 08:27 Bed 19 Private MD: ED Physician Harmeet Stiles HPI: 01/07 10:17 This 29 yrs old Female presents to ER via Ambulatory with complaints of rn Abdominal Pain. 10:17 The patient presents with abdominal pain in the left lower quadrant. Onset: The rn symptoms/episode began/occurred this morning. The symptoms radiate to the left flank. Associated signs and symptoms: Pertinent positives: nausea, Pertinent negatives: blood in stools, chest pain, constipation, diarrhea, dysuria, fever. The symptoms are described as crampy. Modifying factors: The symptoms are alleviated by nothing, the symptoms are aggravated by nothing. Severity of pain: At its worst the pain was moderate in the emergency department the pain is unchanged. The patient has not experienced similar symptoms in the past. 10:17 Patient denies any history of kidney stones or ovarian cyst. Reports currently on rn menstrual cycle. Nothing abnormal about this cycle. Denies trauma. No blood in stool.. VALUE ADVISOR: 12:33 LMP 01/04/2024, unknown kc6 Historical: - Allergies: 08:31 No Known Allergies; ll1 - PMHx: 08:31 Anxiety; Thyroid problem; ll1 - PSHx: 08:31 Tummy tuck; ll1 - Immunization history:: Adult Immunizations up to date. - Infectious Disease History:: Denies. - Social history:: Smoking status: Patient reports the use of cigarette tobacco products, smokes one-half pack cigarettes per day. - Family history:: not pertinent. - Hospitalizations: : No recent hospitalization is reported. ROS: 10:17 Constitutional: Negative for fever, chills, and weight loss, Cardiovascular: Negative rn for chest pain, palpitations, and edema, Respiratory: Negative for shortness of breath, cough, wheezing, and pleuritic chest pain, Abdomen/GI: Positive for left abdominal pain Back: Positive for left flank pain : Negative for injury, bleeding, discharge, and swelling, MS/Extremity: Negative for injury and deformity, Skin: Negative for injury, rash, and discoloration, Neuro: Negative for headache, weakness, numbness, tingling, and seizure, Exam: 10:17 Constitutional: This is a well developed, well nourished patient who is awake, alert, rn appears uncomfortable Head/Face: Normocephalic, atraumatic. Cardiovascular: Regular rate and rhythm. No pulse deficits. Respiratory: No increased work of breathing, no retractions or nasal flaring. Abdomen/GI: Soft, mild left lower quadrant tenderness and left upper quadrant tenderness. No rebound or guarding MS/ Extremity: Pulses equal, no cyanosis. Neuro: Awake and alert, GCS 15 Vital Signs: 08:31 BP 122 / 76; ll1 08:48 Pulse 57; Resp 18 S; Pulse Ox 98% on R/A; Pain 9/10; kc6 12:21 BP 104 / 72; Pulse 59; Resp 18 S; Pulse Ox 100% on R/A; kc6 08:48 Pain Scale: Adult kc6 MDM: 08:31 Patient medically screened. rn 12:14 ED course: Discussed ultrasound with Dr. Perez, states no acute findings and rn ultrasound, no evidence of torsion or masses. I have personally reviewed all of the results, including but not limited to blood tests and imaging deemed necessary to safely discharge this patient at this time. All results given to and printed out for patient. I personally went over all the results with the patient and answered all questions. Patient will follow-up with PCP and or specialist as discussed. Return precautions given and understood.. 01/07 08:31 Order name: CBC with Diff; Complete Time: 09:24 rn 01/07 08:31 Order name: CMP; Complete Time: 09:24 rn 01/07 08:31 Order name: Lipase; Complete Time: 09:24 rn 01/07 08:31 Order name: Test, Urine; Complete Time: 09:10 rn 01/07 08:31 Order name: Urinalysis w/ reflexes; Complete Time: 09:10 rn 01/07 09:10 Order name: CT Abd/Pelvis - IV Contrast Only; Complete Time: 09:50 rn 01/07 09:56 Order name: Transvaginal Study Probe; Complete Time: 12:39 EDMS 01/07 08:31 Order name: IV Saline Lock; Complete Time: 09:04 rn 01/07 08:31 Order name: Labs collected and sent; Complete Time: 09:04 rn Administered Medications: 10:27 Drug: morphine IVP or IV 4 mg IVP once over 4 mins Route: IVP; Infused Over: 4 mins; kc6 Site: left antecubital; 12:21 Follow up: Response: No adverse reaction; Pain is decreased; RASS: Alert and Calm (0) kc6 10:27 Drug: Ketorolac IVP 15 mg IVP once Route: IVP; Site: left antecubital; kc6 12:21 Follow up: Response: No adverse reaction kc6 12:33 Drug: Ketorolac IVP 15 mg IVP once Route: IVP; Site: left antecubital; kc6 12:39 Follow up: Response: No adverse reaction; Pain is decreased kc6 Disposition Summary: 01/08/24 12:15 Discharge Ordered Notes: Location: Home rn Problem: new rn Symptoms: have improved rn Condition: Stable rn Diagnosis - Abdominal pain, unspecified rn Followup: rn - With: Private Physician - When: As needed - Reason: Recheck today's complaints, Re-evaluation by your physician Discharge Instructions: - Abdominal Pain, Adult rn - Pain Without a Known Cause rn - Discharge Summary Sheet ll1 Forms: - Medication Reconciliation Form rn - Antibiotic reduction furnace operator - Prescription Opioid Use rn - Patient Portal Instructions rn - Leadership Thank You Letter rn - Work release form ll1 Prescriptions: - ondansetron 4 mg Oral Tablet,disintegrating - take 1 tablet ORAL route every 8 hours As needed; 10 tablet; Refills: 0, rn Product Selection Permitted - Tramadol 50 mg Oral Tablet - take 1 tablet ORAL route every 8 hours as needed; 12 tablet; Refills: 0, rn Product Selection Permitted Signatures: Dispatcher [employer] EDHarmeet Orellana MD MD rn Lewis, Lynsay, RN RN ll1 Tammy Colon RN RN kc6 Corrections: (The following items were deleted from the chart) 09:54 09:53 Pelvis Complete+US.RAD.BRZ ordered. EDMD DAVEMS
--- NOTE | 2024-01-08 12:16 | ER ---
Nurse's Notes [facility] Name: Nataly Sparrow Age: 29 yrs Sex: Female : 1995 Arrival Date: 01/08/2024 Time: 08:27 Bed 19 Private MD: Diagnosis: Abdominal pain, unspecified Presentation: 01/07 08:31 Chief complaint: Patient states: Abdominal pain started this AM. Coronavirus screen: 1 Client denies travel out of the [place] in the last 14 days. At this time, the client does not indicate any symptoms associated with coronavirus-19. Ebola Screen: Patient denies travel to an Ebola-affected area in the 21 days before illness onset. Initial Sepsis Screen: Does the patient meet any 2 criteria? No. Patient's initial sepsis screen is negative. Does the patient have a suspected source of infection? No. Patient's initial sepsis screen is negative. Risk Assessment: Do you want to hurt yourself or someone else? Patient reports no desire to harm self or others. Onset of symptoms was January 08, 2024. 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 - Infectious Disease History:: Denies. - Social history:: Smoking status: Patient reports the use of cigarette tobacco products, smokes one-half pack cigarettes per day. - Family history:: not pertinent. - Hospitalizations: : No recent hospitalization is reported. Screenin:48 [facility] ED Fall Risk Assessment (Adult) History of falling in the last 3 months, kc6 including since admission No falls in past 3 months (0 pts) Confusion or Disorientation No (0 pts) Intoxicated or Sedated No (0 pts) Impaired Gait No (0 pts) Mobility Assist Device Used No (0 pt) Altered Elimination No (0 pt) Score/Fall Risk Level 0 - 2 = Low Risk Oriented to surroundings. Abuse screen: Denies injuries from another. Nutritional screening: No deficits noted. Tuberculosis screening: No symptoms or risk factors identified. Assessment: 08:49 General: Appears in no apparent distress. uncomfortable, well groomed, well developed, kc6 Behavior is calm, cooperative, appropriate for age. Pain: Complains of pain in back, left upper quadrant and left lower quadrant. Neuro: Level of Consciousness is awake, alert, obeys commands, Oriented to person, place, time, situation, Appropriate for age. Cardiovascular: Capillary refill < 3 seconds. Respiratory: Airway is patent Trachea midline Respiratory effort is even, unlabored, Respiratory pattern is regular, symmetrical. GI: Abdomen is flat, non-distended, Bowel sounds present X 4 quads. Abd is soft X 4 quads Abdomen is tender to palpation in left upper quadrant and left lower quadrant Reports cramping, Patient currently denies diarrhea, nausea, vomiting. : No signs and/or symptoms were reported regarding the genitourinary system. Urine is clear. EENT: No signs and/or symptoms were reported regarding the EENT system. Derm: No signs and/or symptoms reported regarding the dermatologic system. Skin is intact, is healthy with good turgor, Skin is pink, warm \T\ dry. Musculoskeletal: No signs and/or symptoms reported regarding the musculoskeletal system. Circulation, motion, and sensation intact. Capillary refill < 3 seconds, Range of motion: intact in all extremities. 09:45 Reassessment: Patient appears in no apparent distress at this time. No changes from kc6 previously documented assessment. Patient and/or family updated on plan of care and expected duration. Pain level reassessed. Patient is alert, oriented x 3, equal unlabored respirations, skin warm/dry/pink. 10:29 Reassessment: Patient appears in no apparent distress at this time. No changes from kc6 previously documented assessment. Patient and/or family updated on plan of care and expected duration. Pain level reassessed. Patient is alert, oriented x 3, equal unlabored respirations, skin warm/dry/pink. Patient states symptoms have not improved. 12:21 Reassessment: Patient appears in no apparent distress at this time. No changes from kc6 previously documented assessment. Patient and/or family updated on plan of care and expected duration. Pain level reassessed. Patient is alert, oriented x 3, equal unlabored respirations, skin warm/dry/pink. Vital Signs: 08:31 BP 122 / 76; ll1 08:48 Pulse 57; Resp 18 S; Pulse Ox 98% on R/A; Pain 9/10; kc6 12:21 BP 104 / 72; Pulse 59; Resp 18 S; Pulse Ox 100% on R/A; kc6 08:48 Pain Scale: Adult kc6 ED Course: 08:30 Patient arrived in ED. mg5 08:31 Harmeet Stiles MD is Attending Physician. rn 08:31 Arm band placed on Patient placed in an exam room, on a stretcher. ll1 08:39 Tammy Colon, SANTO is Primary Nurse. kc6 08:43 Triage completed. ll1 08:46 Patient has correct armband on for positive identification. Placed in gown. Bed in low kc6 position. Call light in reach. Side rails up X 1. Pulse ox on. NIBP on. Door closed. Noise minimized. Lights dimmed. Warm blanket given. Pillow given. 08:47 Patient maintains SpO2 saturation greater than 95% on room air. kc6 09:25 CT Abd/Pelvis - IV Contrast Only In Process Unspecified. EDMS 10:29 Transvaginal Study Probe In Process Unspecified. EDMS 12:33 No provider procedures requiring assistance completed. IV discontinued, intact, kc6 bleeding controlled, No redness/swelling at site. Pressure dressing applied. Administered Medications: 10:27 Drug: morphine IVP or IV 4 mg IVP once over 4 mins Route: IVP; Infused Over: 4 mins; kc6 Site: left antecubital; 12:21 Follow up: Response: No adverse reaction; Pain is decreased; RASS: Alert and Calm (0) kc6 10:27 Drug: Ketorolac IVP 15 mg IVP once Route: IVP; Site: left antecubital; kc6 12:21 Follow up: Response: No adverse reaction kc6 12:33 Drug: Ketorolac IVP 15 mg IVP once Route: IVP; Site: left antecubital; kc6 12:39 Follow up: Response: No adverse reaction; Pain is decreased kc6 Medication: 12:33 VIS not applicable for this client. kc6 Outcome: 12:15 Discharge ordered by . rn 12:33 Discharged to home ambulatory, kc6 12:33 Condition: good 12:33 Discharge instructions given to patient, Instructed on discharge instructions, follow up and referral plans. no drinking with medication, no driving heavy equipment, medication usage, Demonstrated understanding of instructions, follow-up care, medications, Prescriptions given X 2, 12:39 Patient left the ED. kc6 Signatures: Dispatcher [employer] EDMS Harmeet Stiles MD MD rn Lewis, Lynsay, RN RN ll1 Tammy Colon RN RN kc6 Marycruz Pascal [facility]
--- NOTE | 2024-01-08 12:38 | RAD REPORT ---
EXAMINATION: Transvaginal Study Probe CLINICAL INDICATION: Pelvic pain TECHNIQUE: Real-time ultrasonography of the pelvis was performed transvaginally. Color and spectral D oppler evaluation of the ovaries was performed. COMPARISON: January 08, 2024 CT FINDINGS: Uterus measures 9.1 x 4.8 x 5.8 cm. The echotexture is normal. IUD is present within the endometrium. Endometrial thickness normal. Ovaries are normal in size and echotexture with normal blood flow. No significant free fluid. IMPRESSION: No significant abnormality displayed
[2024-01-08 23:59] VITALS: BP 104/72; O2SAT 100
== END 2024-01-08 12:39 | disposition home or self-care (01) ==
LOC: ER 08:27
DX: R10.9 Unspecified abdominal pain (principal); F41.9 Anxiety disorder, unspecified; F17.210 Nicotine dependence, cigarettes, uncomplicated; E07.9 Disorder of thyroid, unspecified
CPT/HCPCS: 36415; 74177; 76830; 80053; 81001; 81025; 83690; 85025; 96374; 96375; 99284; Q9967

== ENCOUNTER 2024-01-09 06:10 | Inpatient (IN) | payer SELFPAY ==
[2024-01-09] MEDS ORDERED: ONDANSETRON 4 MG/2 ML VIAL ONE ×2 (06:55→10:42)
[2024-01-09] MEDS ORDERED: MORPHINE 4 MG/ML SYR ONE (06:56)
[2024-01-09] MEDS ORDERED: NA CHLORIDE 0.9% 1,000 ML ONE (06:56)
[2024-01-09 07:18] LABS: Absolute Basophils 0.1 K/uL (0-0.5); Absolute Eosinophils 0.2 K/uL (0-0.5); Absolute Lymphocytes (CBC) 1.5 K/uL (0.7-4.9); Absolute Monocytes 0.5 K/uL (0.1-1.3); Absolute Neutrophil 6.6 K/uL (1.8-8.0); Basophils % 0.6 % (0-1.3); Eosinophils % 2.3 % (0-4.4); Hematocrit 39.4 % (36.0-45.0); Hemoglobin 13.1 g/dL (12.0-15.0); Lymphocytes % 17.2 % (15.3-44.8); MCH 31.3 pg (27.0-35.0); MCHC 33.3 g/dL (32.0-36.0); MCV 94.1 fL (80-100); MPV 7.9 fL (7.6-11.3); Monocytes % 5.6 % (3.3-12.3); Neutrophils % 74.3 % (41.7-73.7); Platelets 266 thou/uL (152-406); RBC Red Blood Cell Count 4.19 M/uL (3.86-4.86); Red Cell Distribution Width 13.1 % (12.1-15.2)
[2024-01-09 07:37] LABS: ALT/SGPT 23 U/L (13-56); Albumin 3.4 g/dL (3.4-5.0); Albumin/Globulin Ratio 0.9 (1.1-1.8); Alkaline Phosphatase 57 U/L (45-117); Anion Gap 4.7 mEq/L (5.0-15.0); BUN Blood Urea Nitrogen 11 mg/dL (7-18); Bicarbonate 26 mEq/L (21-32); Bilirubin Total 0.5 mg/dL (0.2-1.0); Globulin 3.6 g/dL (2.3-3.5); Glomerular Filtration Rate 105 ml/min (=/>90); Glucose Level 110 mg/dL (74-106); Lipase 23 U/L (13-75); Potassium 3.7 mEq/L (3.5-5.1); Sodium Level 137 mEq/L (136-145)
[2024-01-09 07:38] LABS: AST/SGOT < 10 U/L (15-37)
--- NOTE | 2024-01-09 07:39 | RAD REPORT ---
EXAM: Right upper quadrant ultrasound. CLINICAL HISTORY: COMPARISON: None FINDINGS: Several tiny echogenic structures within the gallbladder neck. No posterior shadowing noted Gallbladder wall not thickened. Biliary tree normal caliber IMPRESSION: Several tiny echogenic structures within the gallbladder neck. These could represent stones which did not shadow secondary to a combination of small size and technical factors or sludge. Gallbladder wall is not thickened
[2024-01-09] MEDS ORDERED: HYDROMORPHONE HCL 1 MG/ML INJ ONE (07:49)
[2024-01-09 08:29] LABS: Specific Gravity 1.021 (1.005-1.030); Urine Bacteria None Seen /HPF (<20); Urine Bilirubin NEGATIVE (Negative); Urine Blood 2+ (Negative); Urine Clarity Turbid (Clear); Urine Color Light-Yellow (Yellow); Urine Culture Reflex Order NOT NEEDED; Urine Glucose NEGATIVE (Negative); Urine Ketones NEGATIVE (Negative); Urine Microscopic Reflex YN ORDER UMIC; Urine Mucus Slight /HPF (None Seen); Urine Nitrite NEGATIVE (Negative); Urine Protein NEGATIVE (Negative); Urine RBC <5 /HPF (None Seen); Urine Urobilinogen Normal (Normal); Urine WBC <5 /HPF (<5)
--- NOTE | 2024-01-09 08:42 | RAD REPORT ---
EXAMINATION: CT ABDOMEN AND PELVIS WITH CONTRAST CLINICAL INDICATION: Abdominal pain TECHNIQUE: CT abdomen and pelvis was performed, after the administration of 100 cc Isovue-300.. Sagit rudi and coronal reconstructions were obtained. One or more of the following dose reduction techniques were used: Automated exposure control, adjustment of the mA and/or kV according to patien t size, and/or iterative reconstruction. Unless otherwise specified, incidental findings do not require dedicated imaging follow-up. [id number]. Oral contrast was not given which limits evaluation of b owel and appendix. COMPARISON: January 08, 2024 FINDINGS: The liver, spleen, pancreas, adrenals and kidneys appear unremarkable A diverticulum symptoms from the ascending colon at the level of the kidneys.. Mild adjacent strandin g. No free air. No abscess. Small adjacent lymph nodes. Gallbladder wall not thickened Normal appendix. No adnexal mass. IUD within the uterus. : : IMPRESSION: These findings most likely indicate a mild diverticulitis ascending colon. However, as there are small adjacent lymph nodes follow-up imaging in a couple of months recommended for reevaluation
--- NOTE | 2024-01-09 09:24 | EDPHYS ---
Physician Documentation [facility] Name: Nataly Sparrow Age: 29 yrs Sex: Female : 1995 Arrival Date: 01/09/2024 Time: 06:10 Bed 7 Private MD: ED Physician Harmeet Stiles HPI: 01/08 06:36 This 29 yrs old Female presents to ER via Ambulatory with complaints of sp3 Abdominal Pain. 06:36 29-year-old female with history of anxiety and thyroid disease now presents with sp3 epigastric abdominal pain. Patient was seen yesterday for similar symptoms where she received full laboratory workup, CT scan of the abdomen pelvis and vaginal ultrasound which were all negative for significant findings and patient was discharged home. She went home and was doing better but this morning she states the pain is come back with greater intensity. Pain is epigastric in nature. She denies any vomiting, diarrhea, fever, chest pain, shortness of breath, syncope, rash, known sick contacts, or any other signs or symptoms on ROS at this time.. 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 - Infectious Disease History:: Denies. - Social history:: Smoking status: Reported history of juuling and/or vaping. Patient/guardian denies using alcohol, street drugs. ROS: 06:37 Constitutional: Negative for fever, chills, and weight loss, Eyes: Negative for injury, sp3 pain, redness, and discharge, ENT: Negative for injury, pain, and discharge, Neck: Negative for injury, pain, and swelling, Cardiovascular: Negative for chest pain, palpitations, and edema, Respiratory: Negative for shortness of breath, cough, wheezing, and pleuritic chest pain, Back: Negative for injury and pain, MS/Extremity: Negative for injury and deformity, Skin: Negative for injury, rash, and discoloration, Neuro: Negative for headache, weakness, numbness, tingling, and seizure, Psych: Negative for depression, anxiety, suicide ideation, homicidal ideation, and hallucinations, Allergy/Immunology: Negative for hives, rash, and allergies, Endocrine: Negative for neck swelling, polydipsia, polyuria, polyphagia, and marked weight changes, 06:37 All other systems are negative, Exam: 06:38 Constitutional: This is a well developed, well nourished patient who is awake, alert, sp3 and in no acute distress. Head/Face: Normocephalic, atraumatic. Eyes: Pupils equal round and reactive to light, extra-ocular motions intact. Lids and lashes normal. Conjunctiva and sclera are non-icteric and not injected. Cornea within normal limits. Periorbital areas with no swelling, redness, or edema. Neck: Trachea midline, no thyromegaly or masses palpated, and no cervical lymphadenopathy. Supple, full range of motion without nuchal rigidity, or vertebral point tenderness. No Meningismus. Chest/axilla: Normal chest wall appearance and motion. Nontender with no deformity. No lesions are appreciated. Cardiovascular: Regular rate and rhythm with a normal S1 and S2. No gallops, murmurs, or rubs. Normal PMI, no JVD. No pulse deficits. Respiratory: Lungs have equal breath sounds bilaterally, clear to auscultation and percussion. No rales, rhonchi or wheezes noted. No increased work of breathing, no retractions or nasal flaring. Back: No spinal tenderness. No costovertebral tenderness. Full range of motion. Skin: Warm, dry with normal turgor. Normal color with no rashes, no lesions, and no evidence of cellulitis. MS/ Extremity: Pulses equal, no cyanosis. Neurovascular intact. Full, normal range of motion. Neuro: Awake and alert, GCS 15, oriented to person, place, time, and situation. Cranial nerves II-XII grossly intact. Motor strength 5/5 in all extremities. Sensory grossly intact. Cerebellar exam normal. Normal gait. Psych: Awake, alert, with orientation to person, place and time. Behavior, mood, and affect are within normal limits. 06:38 Abdomen/GI: Patient with epigastric pain to palpation without peritoneal signs, rebound or guarding. Vital signs are normal., Vital Signs: 06:25 BP 138 / 87; Pulse 78; Resp 19 S; Temp 98.5(O); Pulse Ox 99% on R/A; Weight 90.72 kg lg3 (R); Height 5 ft. 4 in. (R); Pain 10/10; 08:10 BP 112 / 62; Pulse 64; Resp 16 S; Pulse Ox 95% on R/A; aa5 10:40 BP 110 / 79; Pulse 62; Resp 20 S; Temp 98.3(TE); Pulse Ox 98% on R/A; aa5 06:25 Body Mass Index 34.33 (90.72 kg, 162.56 cm) lg3 06:25 Pain Scale: Adult lg3 MDM: 06:30 Patient medically screened. sp3 06:40 Data reviewed: vital signs, nurses notes, old medical records, lab test result(s), sp3 radiologic studies. ED course: Two 9-year-old female with recurrent abdominal pain seen yesterday. Patient will be worked up with repeat labs and abdominal ultrasound as an additional imaging modality. I am not highly suspicious of peritonitis, ruptured viscus or any other critical illness. Patient will be signed out to Dr. Hills to the daytime physician who also saw her yesterday. Final reevaluation and disposition per his clinical judgment.. 09:21 Differential diagnosis: bowel obstruction, cholecystitis, Cholelithiasis, rn diverticulitis, non-specific abd pain, pancreatitis, Peptic Ulcer Disease, Perf. Duodenal Ulcer, Perf. Gastric Ulcer, Ureterolithiasis, urinary tract infection. Consideration of Admission/Observation Patient was admitted/placed on observation. Escalation of care including admission/observation considered. Counseling: I had a detailed discussion with the patient and/or guardian regarding the historical points, exam findings, and any diagnostic results supporting the discharge/admit diagnosis, lab results, radiology results, the need for further work-up and treatment in the hospital. ED course: Patient with uncontrolled pain despite morphine and Dilaudid. 2 visits in [address] shows diverticulitis and possible gallstones. No evidence of biliary obstruction. Will admit for further care.. 01/08 06:30 Order name: CBC with Diff; Complete Time: 07:42 sp3 01/08 06:30 Order name: CMP; Complete Time: 07:42 sp3 01/08 06:30 Order name: Lipase; Complete Time: 07:42 sp3 01/08 06:30 Order name: Urinalysis w/ reflexes; Complete Time: 09:02 sp3 01/08 10:04 Order name: Basic Metabolic Panel EDMS 01/08 10:04 Order name: Basic Metabolic Panel EDMS 01/08 10:04 Order name: Basic Metabolic Panel EDMS 01/08 10:04 Order name: Basic Metabolic Panel EDMS 01/08 10:04 Order name: Basic Metabolic Panel EDMS 01/08 10:04 Order name: Basic Metabolic Panel EDMS 01/08 10:04 Order name: Basic Metabolic Panel EDMS 01/08 10:04 Order name: Basic Metabolic Panel EDMS 01/08 10:04 Order name: CBC with Automated Diff EDMS 01/08 10:04 Order name: CBC with Automated Diff EDMS 01/08 10:04 Order name: CBC with Automated Diff EDMS 01/08 10:04 Order name: CBC with Automated Diff EDMS 01/08 10:04 Order name: CBC with Automated Diff EDMS 01/08 10:04 Order name: CBC with Automated Diff EDMS 01/08 10:04 Order name: CBC with Automated Diff EDMS 01/08 10:04 Order name: CBC with Automated Diff EDMS 01/08 10:04 Order name: Magnesium EDMS 01/08 10:04 Order name: Magnesium EDMS 01/08 10:04 Order name: Magnesium EDMS 01/08 10:04 Order name: Magnesium EDMS 01/08 10:04 Order name: Magnesium EDMS 01/08 10:04 Order name: Magnesium EDMS 01/08 10:04 Order name: Magnesium EDMS 01/08 10:04 Order name: Magnesium EDMS 01/08 10:04 Order name: Phosphorus EDMS 01/08 10:04 Order name: Phosphorus EDMS 01/08 10:04 Order name: Phosphorus EDMS 01/08 10:04 Order name: Phosphorus EDMS 01/08 10:04 Order name: Phosphorus EDMS 01/08 10:04 Order name: Phosphorus EDMS 01/08 10:04 Order name: Phosphorus EDMS 01/08 10:04 Order name: Phosphorus EDMS 01/08 06:30 Order name: Abdomen Limited US; Complete Time: 07:42 sp3 01/08 07:42 Order name: CT Abd/Pelvis - IV Contrast Only; Complete Time: 09:02 rn 01/08 10:04 Order name: CONS Physician Consult EDMS 01/08 06:30 Order name: IV Saline Lock; Complete Time: 07:05 sp3 01/08 06:30 Order name: Labs collected and sent; Complete Time: 07:05 sp3 Administered Medications: 07:06 Drug: NS 0.9% IV 1000 ml IV at 1 bolus Per protocol; 1000 mL bolus Route: IV; Rate: 1 lg3 bolus; Site: left antecubital; 08:10 Follow up: Response: No adverse reaction; IV Status: Completed infusion; IV Intake: rs5 1000ml 07:06 Drug: Ondansetron IVP 4 mg IVP once; over 2 minutes Route: IVP; Site: left antecubital; lg3 07:53 Follow up: Response: No adverse reaction aa5 07:06 Drug: morphine IVP or IV 4 mg IVP once over 4 mins Route: IVP; Infused Over: 4 mins; lg3 Site: left antecubital; 07:53 Follow up: Response: No adverse reaction aa5 07:53 Drug: HYDROmorphone IVP 1 mg IVP once Route: IVP; Site: left antecubital; aa5 08:12 Follow up: Response: No adverse reaction aa5 09:42 Drug: Ciprofloxacin IVPB 400 mg 200 ml IVPB once over 60 mins Volume: 200 ml; Route: rs5 IVPB; Infused Over: 60 mins; Site: left antecubital; 10:50 Follow up: Response: No adverse reaction; IV Status: Completed infusion; IV Intake: rs5 200ml 09:42 Drug: metroNIDAZOLE IVPB 500 mg 100 ml IVPB at 200 ml/hr once over 30 mins Volume: 100 rs5 ml; Route: IVPB; Rate: 200 ml/hr; Infused Over: 30 mins; Site: left antecubital; 10:10 Follow up: Response: No adverse reaction; IV Status: Completed infusion; IV Intake: rs5 100ml Disposition Summary: 01/09/24 09:23 Hospitalization Ordered Notes: Hospitalization Status: Observation rn Provider: Shay Garcia rn Location: Telemetry/[facility] (observation) rn Condition: Stable rn Problem: new rn Symptoms: have worsened rn Bed/Room Type: Standard rn Room Assignment: 229(01/09/24 10:49) bc6 Diagnosis - Diverticulosis of large intestine without perforation or abscess without bleeding rn - Intractable abdominal pain rn Forms: - Medication Reconciliation Form rn - SBAR form rn - Leadership Thank You Letter rn Signatures: Dispatcher [employer] Sanam Jaquez, RN RN iw Harmeet Stiles MD MD rn Calderon, Audri RN RN aa5 Amanda Brandon RN RN lg3 Nancy Espinal MD MD sp3 Kendall Valdez, SANTO RN rs5 Linda Cao 6 Corrections: (The following items were deleted from the chart) 10:33 09:23 rn 10:49 10:[address] [place] [id number]
--- NOTE | 2024-01-09 09:24 | ER ---
Nurse's Notes [facility] Name: Nataly Sparrow Age: 29 yrs Sex: Female : 1995 Arrival Date: 01/09/2024 Time: 06:10 Bed 7 Private MD: Diagnosis: Diverticulosis of large intestine without perforation or abscess without bleeding;Intractable abdominal pain Presentation: 01/08 06:25 Chief complaint: Patient states: seen yesterday for abdominal pain and was DC'd. went lg3 home. pain was manageable until this morning when i tried putting on my bra. the pain is excruciating. pain in epigastric area radiating to breast and back. Coronavirus screen: Client denies travel out of the [place] in the last 14 days. At this time, the client does not indicate any symptoms associated with coronavirus-19. Ebola Screen: No symptoms or risks identified at this time. Initial Sepsis Screen: Does the patient meet any 2 criteria? No. Patient's initial sepsis screen is negative. Does the patient have a suspected source of infection? No. Patient's initial sepsis screen is negative. Risk Assessment: Do you want to hurt yourself or someone else? Patient reports no desire to harm self or others. Onset of symptoms was January 08, 2024. 06:25 Method Of Arrival: Ambulatory lg3 06:25 Acuity: BELKIS 3 lg3 Triage Assessment: 06:29 General: Appears in no apparent distress. uncomfortable, Behavior is calm, cooperative. lg3 Pain: Complains of pain in epigastric area Pain radiates to back and chest Pain currently is 10 out of 10 on a pain scale. EENT: No deficits noted. No signs and/or symptoms were reported regarding the EENT system. Neuro: No deficits noted. Kelly Agitation-Sedation Scale (RASS): 0 - Alert and Calm Level of Consciousness is awake, alert, obeys commands, Oriented to person, place, time, situation. Cardiovascular: No deficits noted. Denies chest pain, shortness of breath, Capillary refill < 3 seconds Clubbing of nail beds is absent JVD is absent Patient's skin is warm and dry. Respiratory: No deficits noted. Airway is patent Respiratory effort is even, unlabored, Respiratory pattern is regular, symmetrical. GI: Reports upper abdominal pain, cramping, epigastric pain. : No deficits noted. No signs and/or symptoms were reported regarding the genitourinary system. Derm: No deficits noted. No signs and/or symptoms reported regarding the dermatologic system. Skin is intact, is healthy with good turgor, Skin is dry, Skin is normal, Skin temperature is warm. Musculoskeletal: No deficits noted. No signs and/or symptoms reported regarding the musculoskeletal system. Circulation, motion, and sensation intact. Range of motion: intact in all extremities. VENETIAN [employer]: 06:29 LMP 01/09/2024, unknown lg3 Historical: - Allergies: 06: No Known Allergies; lg3 - Home Meds: : Clonazepam Oral [Active]; lg3 - PMHx: : Anxiety; Thyroid problem; lg3 - PSHx: : Tummy tuck; lg3 - Immunization history:: Adult Immunizations up to date. - Infectious Disease History:: Denies. - Social history:: Smoking status: Reported history of juuling and/or vaping. Patient/guardian denies using alcohol, street drugs. Screenin:32 [facility] ED Fall Risk Assessment (Adult) History of falling in the last 3 months, lg3 including since admission No falls in past 3 months (0 pts) Confusion or Disorientation No (0 pts) Intoxicated or Sedated No (0 pts) Impaired Gait No (0 pts) Mobility Assist Device Used No (0 pt) Altered Elimination No (0 pt) Score/Fall Risk Level 0 - 2 = Low Risk Oriented to surroundings, Maintained a safe environment, Educated pt \T\ family on fall prevention, incl call for assistance when getting out of bed, Assessed \T\ reinforced patient's understanding of fall precautions. Abuse screen: Denies threats or abuse. Denies injuries from another. Nutritional screening: No deficits noted. Tuberculosis screening: No symptoms or risk factors identified. Assessment: 06:32 General: see triage assessment. lg3 07:00 General: Appears uncomfortable, Behavior is calm, cooperative. Pain: Complains of pain rs5 in abdomen Pain currently is 8 out of 10 on a pain scale. Quality of pain is described as aching, Is continuous. Neuro: Level of Consciousness is awake, alert, obeys commands, Oriented to person, place, time, situation. Cardiovascular: Patient's skin is warm and dry. Respiratory: Airway is patent Respiratory effort is even, unlabored, Respiratory pattern is regular, symmetrical. GI: Abdomen is round non-distended, Bowel sounds present X 4 quads. Abdomen is tender to palpation in abdomen diffusely. : No signs and/or symptoms were reported regarding the genitourinary system. EENT: No signs and/or symptoms were reported regarding the EENT system. Derm: No signs and/or symptoms reported regarding the dermatologic system. Musculoskeletal: Range of motion: intact in all extremities. 07:38 Pain: Complains of pain in abdomen Pain currently is 9 out of 10 on a pain scale. kj2 Quality of pain is described as aching, Is continuous. 07:40 Reassessment: provider notified pt is experiencing pain . kj2 08:10 Reassessment: Patient is alert, oriented x 3, equal unlabored respirations, skin aa5 warm/dry/pink. Patient states feeling better. 10:38 Reassessment: Report faxed to admitting nurse . aa5 Vital Signs: 06:25 BP 138 / 87; Pulse 78; Resp 19 S; Temp 98.5(O); Pulse Ox 99% on R/A; Weight 90.72 kg lg3 (R); Height 5 ft. 4 in. (R); Pain 10/10; 08:10 BP 112 / 62; Pulse 64; Resp 16 S; Pulse Ox 95% on R/A; aa5 10:40 BP 110 / 79; Pulse 62; Resp 20 S; Temp 98.3(TE); Pulse Ox 98% on R/A; aa5 06:25 Body Mass Index 34.33 (90.72 kg, 162.56 cm) lg3 06:25 Pain Scale: Adult lg3 ED Course: 06:13 Patient arrived in ED. gm2 06:28 Nancy Espinal MD is Attending Physician. sp3 06:29 Triage completed. lg3 06:29 Arm band placed on right wrist. lg3 06:32 Placed in gown. Bed in low position. Call light in reach. Side rails up X 1. Client lg3 placed on continuous cardiac and pulse oximetry monitoring. NIBP monitoring applied. Door closed. Noise minimized. Warm blanket given. Pillow given. 06:42 Erica Kidd RN is Primary Nurse. kj2 06:42 Provided Education on: CALL LIGHT. kj2 07:03 Abdomen Limited US In Process Unspecified. EDMS 07:05 Inserted saline lock: 20 gauge in left antecubital area, using aseptic technique. Blood lg3 collected. 07:05 CBC with Diff Sent. lg3 07:05 CMP Sent. lg3 07:05 Lipase Sent. lg3 07:08 Report given to [place]. kj2 07:41 Attending Physician role handed off by Nancy Espinal MD rn 07:41 Harmeet Stiles MD is Attending Physician. rn 08:04 CT Abd/Pelvis - IV Contrast Only In Process Unspecified. EDMS 09:22 Shay Garcia is Hospitalizing Provider. rn 09:43 No provider procedures requiring assistance completed. rs5 11:17 Patient admitted, IV remains in place. rs5 Administered Medications: 07:06 Drug: NS 0.9% IV 1000 ml IV at 1 bolus Per protocol; 1000 mL bolus Route: IV; Rate: 1 lg3 bolus; Site: left antecubital; 08:10 Follow up: Response: No adverse reaction; IV Status: Completed infusion; IV Intake: rs5 1000ml 07:06 Drug: Ondansetron IVP 4 mg IVP once; over 2 minutes Route: IVP; Site: left antecubital; lg3 07:53 Follow up: Response: No adverse reaction aa5 07:06 Drug: morphine IVP or IV 4 mg IVP once over 4 mins Route: IVP; Infused Over: 4 mins; lg3 Site: left antecubital; 07:53 Follow up: Response: No adverse reaction aa5 07:53 Drug: HYDROmorphone IVP 1 mg IVP once Route: IVP; Site: left antecubital; aa5 08:12 Follow up: Response: No adverse reaction aa5 09:42 Drug: Ciprofloxacin IVPB 400 mg 200 ml IVPB once over 60 mins Volume: 200 ml; Route: rs5 IVPB; Infused Over: 60 mins; Site: left antecubital; 10:50 Follow up: Response: No adverse reaction; IV Status: Completed infusion; IV Intake: rs5 200ml 09:42 Drug: metroNIDAZOLE IVPB 500 mg 100 ml IVPB at 200 ml/hr once over 30 mins Volume: 100 rs5 ml; Route: IVPB; Rate: 200 ml/hr; Infused Over: 30 mins; Site: left antecubital; 10:10 Follow up: Response: No adverse reaction; IV Status: Completed infusion; IV Intake: rs5 100ml Medication: 06:32 VIS not applicable for this client. lg3 Intake: 08:10 IV: 1000ml; Total: 1000ml. rs5 10:10 IV: 100ml; Total: 1100ml. rs5 10:50 IV: 200ml; Total: 1300ml. rs5 Outcome: 09:23 Decision to Hospitalize by Provider. rn 11:17 Admitted to ER Hold. Please see [facility] for further documentation. rs5 11:17 Condition: stable rs5 11:17 Instructed on the need for admit, Demonstrated understanding of instructions, 11:18 Patient left the ED. aa5 Signatures: Dispatcher [employer] EDMS Harmeet Stiles MD MD rn Calderon, Audri RN RN aa5 Amanda Brandon RN RN [email or web address] Nancy Espinal MD MD sp3 Kendall Valdez RN RN rs5 Sybil Brown gm2 Erica Kidd RN RN kj2 Corrections: (The following items were deleted from the chart) 07:51 07:44 Reassessment: provider notified pt is experiencing pain . kj2 kj2 07:51 07:43 Pain: Complains of pain in abdomen Pain currently is 9 out of 10 on a pain scale. kj2 Quality of pain is described as aching, Is continuous, kj2
[2024-01-09] MEDS ORDERED: METRONIDAZOLE 500mg IVPB 500 MG/100 ML BAG IV ONE (09:25)
[2024-01-09] MEDS ORDERED: Ciprofloxacin 200mg IV 400 MG/200 ML IV.SOLN. IV ONE (09:33)
[2024-01-09] MEDS: NA CHLORIDE 0.9% 1,000 ML IV SCH (10:00)
[2024-01-09] MEDS: PANTOPRAZOLE 40 MG INJ IVP SCH (10:03)
[2024-01-09] MEDS ORDERED: SODIUM CHLORIDE 0.9% 10ML INJ IV PRN (10:03)
--- NOTE | 2024-01-09 10:13 | P.HP ---
Certification for Inpatient Patient admitted to: Inpatient With expected LOS: >2 Midnights Patient will require the following post-hospital care: None Practitioner: I am a practitioner with admitting privileges, knowledge of patient current condition, hospital course, and medical plan of care. Services: Services provided to patient in accordance with Admission requirements found in Title 42 Section 412.3 of the Code of Federal Regulations Patient History Date of Service: 01/09/24 Reason for admission: Acute diverticulitis History of Present Illness: Nataly Sparrow is a 29 year old female with Pmhx anxiety/depression who presents to the ED with chief complaint of intense abdominal pain. She reports coming to the ED yesterday but discharged d/t feeling better. Then today while getting ready for work she experienced intense abdominal pain again and decided to come back to the ED. On evaluation, she has abdominal tenderness to palpation, afebrile, uncomfortable, and denies nause/vomitint/diarrhea. She reports this is her first episode and she is not aware of anyone else having diverticulitis in her family. CT abd/pelvis reports "These findings most likely indicate a mild diverticulitis ascending colon." US abdomen reports "Several tiny echogenic structures within the gallbladder neck. These could represent stones which did not shadow secondary to a combination of small size and technical factors or sludge. Gallbladder wall is not thickened." Laboratory values grossly unremarkable, initial vitals BP 138 / 87; Pulse 78; Resp 19 S; Temp 98.5(O); Pulse Ox 99% Nataly will be admitted to hospitalist service for further evaluation and treatment, Dr. Strong consulted. Allergies No Known Allergies Allergy (Verified 09/30/21 01:06) Home Medications: Escitalopram Oxalate 1 tab PO BEDTIME 09/30/21 Trazodone HCl 100 mg PO DAILY 01/09/24 buPROPion HCL [Bupropion Xl] 1 tab PO DAILY 01/09/24 - Past Medical/Surgical History Diabetic: No -: Anxiety -: 01/2014 Psychosocial/ Personal History: Patient lives at home with family - Family History Father Notes: none Mother -: Heart disease, Hypertension, Diabetes - Social History Smoking Status: Never smoker Alcohol use: Yes CD- Drugs: No Caffeine use: No Review of Systems Gastrointestinal: Abdominal Pain Physical Examination - Physical Exam General: Alert, In no apparent distress, Oriented x3 HEENT: Atraumatic, Normocephalic, PERRLA Neck: Supple, 2+ carotid pulse no bruit Respiratory: Clear to auscultation bilaterally, Normal air movement, Diminished Cardiovascular: Normal pulses, Regular rate/rhythm, Normal S1 S2 Capillary refill: <2 Seconds Gastrointestinal: Normal bowel sounds, Soft and benign, Tenderness Musculoskeletal: No clubbing Integumentary: No rashes Neurological: Normal speech, Normal tone - Studies Laboratory Data (last 24 hrs) 01/09/24 01/09/24 07:00 07:00 WBC 8.90 Hgb 13.1 Hct 39.4 Plt Count 266 Sodium 137 Potassium 3.7 BUN 11 Creatinine 0.78 Glucose 110 H Total Bilirubin 0.5 AST < 10 L ALT 23 Alkaline Phosphatase 57 Lipase 23 Assessment and Plan - Plan Assessment and Plan Acute diverticulitis -CT abd/pelvis reports "These findings most likely indicate a mild diverticulitis ascending colon." -Cipro/flagyl -protonix BID -Consult Dr. Strong -IVF -CLD -pain control - test negative collected 01/07 suspected gallstones -US abdomen reports "Several tiny echogenic structures within the gallbladder neck. These could represent stones which did not shadow secondary to a combination of small size and technical factors or sludge. Gallbladder wall is not thickened." -follow up outpatient with Dr. Strong Hx anxiety/depression -continue home medications DVT ppx heparin Full code LOS 3-4 days - Advance Directives Does patient have a Living Will: No Does patient have a Durable POA for Healthcare: No
[2024-01-09] MEDS ORDERED: PANTOPRAZOLE 40 MG INJ ONE (10:42)
[2024-01-09] MEDS: ONDANSETRON 4 MG/2 ML VIAL IV PRN (10:50)
[2024-01-09] MEDS: HYDROMORPHONE HCL 1 MG/ML INJ IV PRN (10:50)
[2024-01-09 11:38] VITALS: BMI 34.3
[2024-01-09] MEDS ORDERED: HYDROMORPHONE HCL 1 MG/ML INJ IV PRN (13:00)
[2024-01-09] MEDS: LORazepam 2 MG/ML VIAL IV PRN (13:17)
[2024-01-09] MEDS: PROMETHAZINE INJ 25 MG/ML AMP IV ONE (13:31)
[2024-01-09] MEDS: SCOPOLAMINE HYDROBROMIDE PATCH TD SCH (13:31)
[2024-01-09] MEDS: BUPROPION HCL XL 150 MG TAB PO SCH (14:39)
[2024-01-09] MEDS: Ciprofloxacin 200mg IV 400 MG/200 ML IV.SOLN. IV SCH ×2 (17:00→20:40)
[2024-01-09] MEDS: HEPARIN 5000 UNIT/ML 1 ML VIAL SQ SCH (17:04)
[2024-01-09] MEDS: METRONIDAZOLE 500mg IVPB 500 MG/100 ML BAG IV SCH (17:04)
--- NOTE | 2024-01-09 19:24 | CON ---
Date of Consultation: 01/09/2024 Reason For Consultation: Abdominal pain. History Of Present Illness: The patient is a 29-year-old female with anxiety and depression who pres ents with epigastric abdominal pain and right-sided abdominal pain. She denies any nausea or vomitin g. No diarrhea or constipation. No blood in her stool. No dysuria or hematuria. No sore throat, r unny nose, cough, headaches, or dizziness. No chest pain. Review of Systems: Otherwise, unremarkable. Past Medical History: Significant for anxiety, depression, thyroid issues. Past Surgical History: Tummy tuck and breast augmentation. Allergies: NO ALLERGIES. Social History: She does vape, but she does not drink alcohol. Family History: Noncontributory. Physical Examination: Vital Signs: Stable. She is afebrile. General: She is awake and alert. Head and Neck: No masses. Chest: Clear. Heart: S1, S2. Abdomen: Soft, nondistended. Positive bowel sounds. Positive right-sided abdominal tenderness in t he right upper quadrant, right middle quadrant, and right lower quadrant. Extremity: Adequately perfused. Nontender. Neuro: Nonfocal. Laboratory Data: White count is 8.9, with slight left shift. Chemistry reviewed. LFTs, lipase, and total bilirubin are within normal limits. Urinalysis is essentially unremarkable. CT of the abdome n and pelvis shows mild diverticulitis of the ascending colon. There is some enlargement of the ana maria cent lymph nodes. Ultrasound shows echogenic structures within the gallbladder neck, tiny stone vers us sludge. Wall is not thickened. There is no pericholecystic fluid. Assessment: 29-year-old female with abdominal pain, etiology most likely is ascending colon divertic ulitis. However, biliary colic can present similarly. Given the acute nature of the diverticulitis, I will recommend treatment of that first and we can address the gallbladder issue as an outpatient. We will start the patient on a liquid diet. Continue IV antibiotics, serial abdominal exam, and fol low this patient closely. Plan of care was discussed with the hospitalist team. DESIRE/CHRISTINE Voice ID: [id number] Report ID: [id number]
[2024-01-09] MEDS: HYDROMORPHONE HCL 0.5 MG/0.5 ML INJ IV PRN (20:40)
[2024-01-09] MEDS: TRAZODONE 50 MG TABLET PO SCH (20:41)
[2024-01-09] MEDS: ESCITALOPRAM 20 MG TAB PO SCH (21:00)
[2024-01-10 05:59] LABS: Absolute Eosinophils 0.2 K/uL (0-0.5); Absolute Lymphocytes (CBC) 1.4 K/uL (0.7-4.9); Absolute Monocytes 0.4 K/uL (0.1-1.3); Absolute Neutrophil 3.5 K/uL (1.8-8.0); Basophils % 0.5 % (0-1.3); Eosinophils % 3.7 % (0-4.4); Hematocrit 37.4 % (36.0-45.0); Hemoglobin 12.5 g/dL (12.0-15.0); Lymphocytes % 25.9 % (15.3-44.8); MCH 31.5 pg (27.0-35.0); MCHC 33.5 g/dL (32.0-36.0); MCV 93.9 fL (80-100); MPV 7.6 fL (7.6-11.3); Monocytes % 6.4 % (3.3-12.3); Neutrophils % 63.5 % (41.7-73.7); Platelets 241 thou/uL (152-406); RBC Red Blood Cell Count 3.98 M/uL (3.86-4.86); Red Cell Distribution Width 13.2 % (12.1-15.2)
[2024-01-10 06:21] LABS: Anion Gap 4.9 mEq/L (5.0-15.0); Magnesium 1.8 mg/dL (1.6-2.4); Phosphorus 3.2 mg/dL (2.5-4.9); Potassium 3.9 mEq/L (3.5-5.1)
--- NOTE | 2024-01-10 14:21 | PN ---
Date of Progress Note: 01/10/2024 Subjective: The patient is still having right-sided abdominal pain. No nausea or vomiting. Tolerat ing clear liquids. Objective: Vital Signs: Stable. She is afebrile. Abdomen: Tender in the right side of the abdomen, but no peritonitis. No rebound, rigidity, or guar ding. Laboratory Data: Shows a white count of 5.6, and there is no left shift. Assessment: Acute diverticulitis of the ascending colon as well as cholelithiasis without evidence o f cholecystitis at this time. Recommendations: Continue IV antibiotics. Parenteral pain management. Hopefully discharge in 24-48 hours. Plan of care was discussed with the hospitalist team. Advance diet to full liquids today. /MODL Voice ID: [id number] Report ID: [id number]
--- NOTE | 2024-01-10 16:08 | P.PN ---
Date of Service: 01/10/24 Subjective Continues to have abdominal pain, only a slight improvement Advanced to FLD ROS 10 point ROS as noted above, otherwise negative Physical Exam General: Alert and Oriented x3, NAD HEENT: Atraumatic, Normocephalic, PERRLA Neck: Supple, 2+ carotid pulse no bruit Respiratory: Clear to auscultation bilaterally, Normal air movement, on RA Cardiovascular: Normal pulses, RRR, Normal S1 S2 Capillary refill: <2 Seconds Gastrointestinal: Normal bowel sounds, Soft and benign, Tenderness to umbilical area Musculoskeletal: No clubbing Integumentary: No rashes Neurological: Normal speech, Normal tone Vitals Reviewed Problem list Acute diverticulitis suspected gallstones Hx anxiety/depression Assessment and Plan Acute diverticulitis -CT abd/pelvis reports "These findings most likely indicate a mild div erticulitis ascending colon." -Cipro/flagyl -protonix BID -Consult Dr. Strong -IVF -FLD -pain control - test negative collected 01/07 suspected gallstones -US abdomen reports "Several tiny echogenic structures within the gallbladder neck. These could represent stones which did not shadow secondary to a combination of small size and technical factors or sludge. Gallbladder wall is not thickened." -follow up outpatient with Dr. Strong Hx anxiety/depression -continue home medications DVT ppx heparin Full code LOS 3-4 days <Rabia Hernandez - Last Filed: 01/10/24 15:59> Patient seen and examined. Plan of care discussed with Ms. Hernandez Patient with persistent abdominal pain. No nausea vomiting. No recorded fever. No sepsis. Continue IV Cipro and Flagyl for acute diverticulitis Full liquid diet Serial abdominal examination. <yang washington - Last Filed: 01/10/24 18:33>
[2024-01-10] MEDS: HYDROMORPHONE HCL 1 MG/ML INJ IV ONE (21:30)
[2024-01-11 06:42] LABS: Anion Gap 7.7 mEq/L (5.0-15.0); Magnesium 1.7 mg/dL (1.6-2.4); Phosphorus 3.7 mg/dL (2.5-4.9); Potassium 3.7 mEq/L (3.5-5.1)
[2024-01-11 07:39] LABS: Absolute Eosinophils 0.2 K/uL (0-0.5); Absolute Lymphocytes (CBC) 1.8 K/uL (0.7-4.9); Absolute Monocytes 0.4 K/uL (0.1-1.3); Absolute Neutrophil 3.1 K/uL (1.8-8.0); Basophils % 0.7 % (0-1.3); Eosinophils % 3.9 % (0-4.4); Hematocrit 36.5 % (36.0-45.0); Hemoglobin 12.6 g/dL (12.0-15.0); Lymphocytes % 32.6 % (15.3-44.8); MCH 31.9 pg (27.0-35.0); MCHC 34.5 g/dL (32.0-36.0); MCV 92.4 fL (80-100); MPV 7.4 fL (7.6-11.3); Monocytes % 7.5 % (3.3-12.3); Neutrophils % 55.3 % (41.7-73.7); Nucleated Red Blood Cells % 0.1 % (0-0); Platelets 279 thou/uL (152-406); RBC Red Blood Cell Count 3.95 M/uL (3.86-4.86); Red Cell Distribution Width 13.1 % (12.1-15.2)
--- NOTE | 2024-01-11 10:28 | PN ---
Date of Progress Note: 01/11/2024 Subjective: The patient is still complaining of pain, but denies any nausea or vomiting. Tolerating full liquid. Objective: Vital Signs: Stable. She is afebrile. Abdomen: There is tenderness on the right side, but there is no peritonitis and appears that there i s more tenderness today in the right middle quadrant rather than the right upper or right lower quadr ant Laboratory Data: White count is normal. Assessment: Acute ascending colon diverticulitis, cholelithiasis, abdominal pain. Recommendations: Discussed the case with the hospitalist team. We will go ahead and repeat the CT a s the patient is still having pain. We will also check her LFTs. CAT scan does not show any worseni ng of the diverticulitis, may need a HIDA scan to rule out cholecystitis. We will make further recom mendation after the CT scan.. DESIRE/CHRISTINE Voice ID: [id number] Report ID: [id number]
[2024-01-11] MEDS: MORPHINE 2 MG/ML SYR IV PRN (10:34)
[2024-01-11 10:45] LABS: ALT/SGPT 26 U/L (13-56); AST/SGOT 14 U/L (15-37); Albumin 3.1 g/dL (3.4-5.0); Alkaline Phosphatase 52 U/L (45-117); Bilirubin Total 0.2 mg/dL (0.2-1.0); Globulin 3.2 g/dL (2.3-3.5); Protein, Total 6.3 g/dL (6.4-8.2)
[2024-01-11 10:46] LABS: Bilirubin Direct < 0.2 mg/dL (0-0.2)
[2024-01-11] MEDS: HYDROCODONE/APAP 7.5/325 MG TAB PO PRN (11:31)
--- NOTE | 2024-01-11 12:44 | RAD REPORT ---
EXAMINATION: CT ABDOMEN AND PELVIS WITH CONTRAST CLINICAL INDICATION: Female, 29 years old.Serial imaging of diverticulitis TECHNIQUE: CT abdomen and pelvis was performed, after the administration of IV contrast, as per [facility] protocol. Axial, sagittal and coronal reconstructions were obtained. One or more of the following dose reduction techniques were used: Automated exposure control, adjustment of the mA and/o r kV according to patient size, and/or iterative reconstruction. Unless otherwise specified, incidental findings do not require dedicated imaging follow-up. [id number]. COMPARISON: No prior exam. FINDINGS: LOWER CHEST: Dependent atelectasis. LIVER: Normal in size and contour. No focal lesion. GALLBLADDER/BILE DUCT: No biliary ductal dilatation.? PANCREAS: No mass, ductal dilation, or paige-pancreatic fluid. SPLEEN: Normal size. No focal lesion. ADRENALS: Normal; no mass. KIDNEYS AND URETERS: Normal size and contour. No hydronephrosis. URINARY BLADDER: Normal contour. GASTROINTESTINAL TRACT: Minimal inflammatory changes present at the ascending colon at the site of pr esumed diverticulitis is similar to marginally improved. Normal appendix. PERITONEUM: No ascites. LYMPH NODES: No lymphadenopathy. ABDOMINAL AORTA AND OTHER VESSELS: Normal caliber aorta and IVC. REPRODUCTIVE ORGANS: No pathologic process IUD. MUSCULOSKELETAL: No acute or suspicious osseous abnormality. ADDITIONAL FINDINGS: None. IMPRESSION: Minimal inflammatory changes associated with the ascending colon that likely reflects mild acute dive rticulitis is again identified but similar to slightly improved. No perforation, abscess, or bowel obstruction. No new findings.
--- NOTE | 2024-01-11 18:11 | P.PN ---
Date of Service: 01/11/24 Subjective Awake and c/o continued pain to upper abdomen denies N/V/D Likely discharge in the AM ROS 10 point ROS as noted above, otherwise negative Physical Exam General: Alert and oriented x3, NAD HEENT: Atraumatic, Normocephalic, PERRLA Neck: Supple, 2+ carotid pulse no bruit Respiratory: Clear to auscultation bilaterally, Normal air movement, on RA Cardiovascular: Normal pulses, regular rate and rhythm, Normal S1 S2 Capillary refill: <2 Seconds Gastrointestinal: Soft on palpation, Tenderness to upper abdomen, bowel sounds present Musculoskeletal: No clubbing Integumentary: No rashes Neurological: Normal speech, Normal tone Vitals Reviewed Problem list Acute diverticulitis suspected gallstones Hx anxiety/depression Assessment and Plan Acute diverticulitis -CT abd/pelvis reports "These findings most likely indicate a mild diverticulitis ascending colon." -01/10 CT abd/pelvis with oral contrast reports "Minimal inflammatory changes associated with the ascending colon that likely reflects mild acute diverticulitis is again identified but similar to slightly improved. No perforation, abscess, or bowel obstruction. No new findings." -Cipro/flagyl -protonix BID -Consult Dr. Strong -continue IVF -continue FLD -pain control - test negative collected 01/07 suspected gallstones -US abdomen reports "Several tiny echogenic structures within the gallbladder neck. These could represent stones which did not shadow secondary to a combination of small size and technical factors or sludge. Gallbladder wall is not thickened." -follow up outpatient with Dr. Strong Hx anxiety/depression -continue home medications DVT ppx heparin Full code LOS 3-4 days <Rabia Hernandez - Last Filed: 01/11/24 18:05> Patient seen and examined care discussed with Ms. Hernandez. Repeat CT abdomen showed mild diverticulitis. Continue supportive measures IV morphine and Atkins as needed for pain Continue current antibiotics. Diet as tolerated. General Surgery Dr. Strong is following. <yang washington - Last Filed: 01/12/24 16:23>
[2024-01-12 06:35] LABS: Absolute Eosinophils 0.3 K/uL (0-0.5); Absolute Lymphocytes (CBC) 1.7 K/uL (0.7-4.9); Absolute Monocytes 0.4 K/uL (0.1-1.3); Absolute Neutrophil 3.3 K/uL (1.8-8.0); Basophils % 0.6 % (0-1.3); Eosinophils % 5.3 % (0-4.4); Hematocrit 37.4 % (36.0-45.0); Hemoglobin 12.5 g/dL (12.0-15.0); MCH 31.4 pg (27.0-35.0); MCHC 33.4 g/dL (32.0-36.0); MCV 94.2 fL (80-100); Monocytes % 7.1 % (3.3-12.3); Platelets 261 thou/uL (152-406); RBC Red Blood Cell Count 3.97 M/uL (3.86-4.86); Red Cell Distribution Width 13.2 % (12.1-15.2)
[2024-01-12 06:53] LABS: Albumin 2.9 g/dL (3.4-5.0); Albumin/Globulin Ratio 0.9 (1.1-1.8); Anion Gap 6.7 mEq/L (5.0-15.0); Bilirubin Total 0.2 mg/dL (0.2-1.0); Globulin 3.1 g/dL (2.3-3.5); Magnesium 1.7 mg/dL (1.6-2.4); Potassium 3.7 mEq/L (3.5-5.1)
[2024-01-12] MEDS: POTASSIUM CL SA 10 MEQ TAB PO SCH (08:29)
[2024-01-12] MEDS: MAGNESIUM SULFATE 1 gm IVPB 1 GM/100 ML BAG IV SCH (08:30)
[2024-01-12 10:31] VITALS: O2SAT 95
--- NOTE | 2024-01-12 12:06 | P.DS ---
Admission Date: 01/09/24 Discharge Date: 01/12/24 Disposition: ROUTINE DISCHARGE Discharge Condition: FAIR Reason for Admission: Acute diverticulitis Brief History of Present Illness: Diagnosis Acute diverticulitis Gallstones Hx anxiety/depression HPI 01/09/2024 Nataly Sparrow is a 29 year old female with Pmhx anxiety/depression who presents to the ED with chief complaint of intense abdominal pain. She reports coming to the ED yesterday but discharged d/t feeling better. Then today while getting ready for work she experienced intense abdominal pain again and decided to come back to the ED. On evaluation, she has abdominal tenderness to palpation, afebrile, uncomfortable, and denies nause/vomitint/diarrhea. She reports this is her first episode and she is not aware of anyone else having diverticulitis in her family. CT abd/pelvis reports "These findings most likely indicate a mild diverticulitis ascending colon." US abdomen reports "Several tiny echogenic structures within the gallbladder neck. These could represent stones which did not shadow secondary to a combination of small size and technical factors or sludge. Gallbladder wall is not thickened." Laboratory values grossly unremarkable, initial vitals BP 138 / 87; Pulse 78; Resp 19 S; Temp 98.5(O); Pulse Ox 99% Nataly will be admitted to hospitalist service for further evaluation and treatment, Dr. Strong consulted. Hospital Course: Nataly Sparrow is a pleasant 29 year old female with a past medical history significant for anxiety/depression who was admitted to the [facility] on 01/09/24 for Acute mild ascending diverticulitis. Nataly Sparrow presented to the ED with abdominal pain. She had a few days of abdominal pain that brought her to the ED on 01/07 but started to feel better and was discharged. 01/08 she returned to the ED when her abdominal pain returned. CT abd/pelvis showing acute mild ascending diverticulitis. US abdomen showing several tiny echogenic structures within the gallbladder neck. She was admitted for IV antibiotics and IVF. Dr. Strong consulted for further evaluation. He recommended symtpom resolution of the diverticulitis prior to surgical inte rvention for the gallstones. She has tolerated FLD, pain is better controlled this morning. She denies N/V this morning. She will need to follow up with Dr. Alfaro for continued close management of diverticulitis. Plan is to continue with FLD or Soft GI as tolerated, a list of foods was provided to help guide food choices. WBC and LFT remained stable. On 01/12/24, Nataly was seen on morning rounds and deemed medically stable for discharge. Nataly was discharged with instructions to schedule follow-up appointments with PCP, Dr. Alfaro, and Dr. Strong. Nataly was provided prescriptions for Protonix, Cipro, Flagyl, Carafate. Physical Exam General: Awake, alert, and oriented x3, NAD, sitting up in bed, comfortable HEENT: Atraumatic, Normocephalic, PERRLA Neck: Supple, 2+ carotid pulse no bruit Respiratory: Clear to auscultation bilaterally, symmetrical chest wall movement, nonlabored breathing, on RA Cardiovascular: Normal pulses, RRR, Normal S1 S2 Capillary refill: <2 Seconds Gastrointestinal: Soft and benign on palpation, Tenderness to upper abdomen, bowel sounds present Musculoskeletal: No clubbing Integumentary: No rashes Neurological: Normal speech, Normal tone Vital Signs/Physical Exam: Temp Pulse Resp BP Pulse Ox 98.3 F 61 16 109/55 L 95 01/12/24 08:00 01/12/24 08:00 01/12/24 08:00 01/12/24 08:00 01/12/24 08:00 Laboratory Data at Discharge: WBC 5.70 thou/uL (4.3-10.9) 01/12/24 05:59 Hgb 12.5 g/dL (12.0-15.0) 01/12/24 05:59 Hct 37.4 % (36.0-45.0) 01/12/24 05:59 Plt Count 261 thou/uL (152-406) 01/12/24 05:59 Sodium 140 mEq/L (136-145) 01/12/24 05:59 Potassium 3.7 mEq/L (3.5-5.1) 01/12/24 05:59 BUN 7 mg/dL (7-18) 01/12/24 05:59 Creatinine 0.89 mg/dL (0.55-1.02) 01/12/24 05:59 Glucose 126 mg/dL (74-106) H 01/12/24 05:59 Phosphorus 4.0 mg/dL (2.5-4.9) 01/12/24 05:59 Magnesium 1.7 mg/dL (1.6-2.4) 01/12/24 05:59 Total Bilirubin 0.2 mg/dL (0.2-1.0) 01/12/24 05:59 AST 22 U/L (15-37) 01/12/24 05:59 ALT 37 U/L (13-56) 01/12/24 05:59 Alkaline Phosphatase 54 U/L (45-117) 01/12/24 05:59 Lipase 23 U/L (13-75) 01/09/24 07:00 Home Medications: Escitalopram Oxalate 1 tab PO BEDTIME 09/30/21 Trazodone HCl 100 mg PO DAILY 01/09/24 buPROPion HCL [Bupropion Xl] 1 tab PO DAILY 01/09/24 Ciprofloxacin HCl [Cipro 500 MG Tablet] 500 mg PO BID 7 Days #14 tab 01/10/24 Pantoprazole Sodium [Protonix] 20 mg PO DAILY 30 Days #30 tab 01/10/24 Sucralfate [Carafate] 10 ml PO QID 7 Days #280 ml 01/10/24 metroNIDAZOLE [Flagyl] 375 mg PO BID 7 Days #14 tab 01/10/24 Hydrocodone 7.5/APAP 325 [[place] 7.5/325 mg*] 1 tab PO Q6H PRN #15 tab 01/12/24 New Medications: Sucralfate [Carafate] 10 ml PO QID 7 Days #280 ml Ciprofloxacin HCl [Cipro 500 MG Tablet] 500 mg PO BID 7 Days #14 tab metroNIDAZOLE [Flagyl] 375 mg PO BID 7 Days #14 tab Hydrocodone 7.5/APAP 325 [[place] 7.5/325 mg*] 1 tab PO Q6H PRN #15 tab PRN Reason: Pain Scale 5-7 (Moderate) Pantoprazole Sodium [Protonix] 20 mg PO DAILY 30 Days #30 tab Physician Discharge Instructions: 1. Please call and schedule a follow-up appointment with your PCP in 3-5 days - Please follow-up with your PCP for medication refills/adjustments 2. Please call and schedule a follow-up appointment with Dr. Strong in one week - Dr. Strong would like to see you once your symptoms have resolved 3. Please call and schedule a follow-up appointment with Dr. Alfaro in one week -establish care and obtain instructions for colonoscopy scheduling 4. Continue Full liquid or soft GI diet 5. activity restrictions, rest x 2 days 6. Return to the ED if symptoms worsen New medications Ciprofloxacin 500 mg twice daily x 7days Flagyl 375mg twice daily x 7 days Protonix 20 mg daily Carafate 10 ml four times daily with meals x 7 days Diet: Soft GI Followup: Matty Upton MD [Primary Care Provider] - Farshad Alfaro MD [ASSOCIATE-ACTIVE - CAN ADMIT] -
[2024-01-12 12:38] VITALS: BP 135/67; TEMP 97.3
== END 2024-01-12 13:27 | disposition home or self-care (01) | DRG 392 ==
LOC: ER 06:10 → ERHOLD 09:56 → 2ND 10:40
PROVIDERS: ADMIT Internal Medicine; ATTEND Internal Medicine
DX: K57.32 Diverticulitis of large intestine without perforation or abscess without bleeding (principal); F41.9 Anxiety disorder, unspecified; F32.A Depression, unspecified; K80.20 Calculus of gallbladder without cholecystitis without obstruction
CPT/HCPCS: 36415; 74177; 76705; 80048; 80053; 80076; 81001; 83690; 83735; 84100; 85025; 96361; 96365; 96368; 96375; 99285; A4216; J0744; J1170; J1644; J2270; J2405; J2470; J2550; J3475; J7030; Q9967

== ENCOUNTER 2024-07-14 16:30 | Inpatient (IN) | payer SELFPAY ==
--- OUTSIDE RECORDS SUMMARY | 2024-07-14 16:34 | XMS REPORT | Continuity of Care Document ---
Author Name Unknown Address [address] [facility]. [address] [place] [address] [facility] Address [address] [facility] [address] [place] [address] Care Team Providers Care Bailer Tenders Supervisor Name Role Phone CHERRY CORDERO JR Primary Care Physician MICHAEL De La Torre Attending Clinician Unavailable MICHAEL NARVAEZ Attending Clinician Unavailable Rodrigue Arriaga MD Attending Clinician [phone] Michael Narvaez MD Attending Clinician [phone] Peyton Wheatley MD Attending Clinician [phone] MARIE ABEBE Attending Clinician UnavailMarie Becerra Attending Clinician + [phone] KATIUSKA RODRIGUEZ Attending Clinician Unava ilable LAB90 Attending Clinician Unavailable Katiuska Rodriguez MD Attending Clinician [phone] Ba Edwards Attending Clinician [phone] Doctor Unassigned, Rough And Ready Attending Clinician U Morris Abebe MD Attending Clinician [phone] MORRIS SPANGLER Attending Clinician Unavailable RODRIGUE ARRIAGA Admitting Clinician Unavailable MARIE ABEBE Admitting Clinician UnavailMorris Foss MDitting Clinician MORRIS SPANGLER Admitting Clinician Unavailable Payers Payer Name Policy Type Policy Number Effective Date Expirati on Date Source Problems Condition Name Condition Details Condition Category Status Onset Date Resolution Date Last Treatment Date Treating Clinician Comments Source History of 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 Formattin g of this note might be different from the original. OSH:Pap in abnormalp ostpartum normal and HPV positive2 018 Colpo cx bx negativeN o follow upWSH:6/2 0 Negative, HPV 16 positiveP regant, f/u PP2/21 Colposcop y cx bx VIJAYA 1 ECC VIJAYA 1HPV vaccine [ ]F/u pap in 1 year. MD Krysten MONROE High-risk High-risk Disease Active 09-20 00:00: 00 Krysten Guajardo Rubella immune Rubella immune Disease Active 06-01 00:00: 00 [facility] Maternal varicella, non-immune Maternal varicella, non-immune Disease Active 06-01 00:00: 00 [facility] Chlamydia trachomati s infection of lower genitourin julieta sites Chlamydia trachomati s infection of lower genitourin julieta sites Disease Resolve d 06-01 00:00: 00 2024-04-06 00:00:00 2024-04-06 09:20:13 [facility] Supervisio n of normal Supervisio n of normal Disease Resolve d 05-28 00:00: 00 2024-04-06 00:00:00 2024-04-06 09:20:11 [facility] Pelvic cramping in antepartum period Pelvic cramping in antepartum period Disease Resolve d 05-28 00:00: 00 2024-04-06 00:00:00 2024-04-06 09:20:10 [facility] Allergies, Adverse Reactions, Alerts Allergy Name Allergy Type Status Severity Reaction(s) Onset Date Inactive Date Treating Clinician Comments Source NO KNOWN ALLERGIE S Drug Class Active [facility] Social History Social Habit Start Date Stop Date Quantity Comments Source ASSERTION 2019-08-02 00:00:00 [facility] History SDOH Alcohol Std Drinks Krysten henderson History SDOH Alcohol Binge Krysten Guajardo History SDOH Alcohol Comment Krysten reeder Exposure to SARS-CoV-2 (event) Not sure Krysten henderson Sexual orientation [facility] History of Social function 2024-04-06 00:00:00 2024-04-06 00:00:00 [facility] Alcoholic beverage intake 2024-04-06 00:00:00 2024-04-06 00:00:00 Current non-drinker of alcohol (finding) [facility] Tobacco Comment 2024-04-06 00:00:00 2024-04-06 00:00:00 Smoker for 5-6 months [facility] Tobacco use and exposure 2024-04-06 00:00:00 2024-04-06 00:00:00 Smokeless tobacco non-user [facility] Alcohol intake 2020-12-26 00:00:00 2020-12-26 00:00:00 Ex-drinker (finding) Krysten Guajardo History SDOH Alcohol Frequency 2020-09-22 00:00:00 2020-09-22 00:00:00 1 Krysten Guajardo History of tobacco use 2013-05-09 00:00:00 Cigarette Smoker [facility] Sex Assigned At 1995 00:00:00 1995 00:00:00 Krysten Guajardo Smoking Status Start Date Stop Date Source Ex-smoker 2024-04-06 00:00:00 2024-04-06 00:00:00 [facility] Medications Ordered Medication Name Filled Medication Name Start Date Stop Date Current Medication? Ordering Clinician Indication Dosage Frequency Signature (SIG) Comments Components Source ondansetron (ZOFRAN (PF)) injection 4 mg 07-05 06:00: 00 07-05 06:09 :00 No 4mg 4 mg, Slow IV Push, ONCE, 1 dose, On 07/05/24 at 0100, Administer over 2-5 Minutes, 2 mL [facility] fentanyl PF (SUBLIMAZE (PF)) injection 50 mcg 07-05 06:00: 00 07-05 06:07 :00 No 50ug 50 mcg, Slow IV Push, ONCE, 1 dose, On 07/05/24 at 0100, Routine [facility] pantoprazol e (PROTONIX) 40 mg in NaCl 0.9% (NS) 10 mL syringe 07-05 06:00: 00 07-05 06:09 :00 No 40mg 40 mg, Slow IV Push, Administer over 2 Minutes, ONCE, 1 dose, On 07/05/24 at 0100, Routine [facility] morpHINE (4 mg/mL) injection 6 mg 07-05 03:45: 00 07-05 03:45 :00 No 6mg 6 mg, Slow IV Push, ONCE, 1 dose, On 07/04/24 at 2245, Routine [facility] iopamidol (ISOVUE 370-500 mL) injection 83 mL 07-05 02:45: 00 07-05 02:45 :00 No [id number] 83mL 83 mL, Intravenou s, ONCE, 1 dose, On 07/04/24 at 2145, Routine [facility] fentanyl PF (SUBLIMAZE (PF)) injection 75 mcg 07-05 02:00: 00 07-05 01:10 :00 No 75ug 75 mcg, Slow IV Push, ONCE, 1 dose, On 07/04/24 at 2100, STAT [facility] pantoprazol e (PROTONIX) 40 mg EC tablet 07-05 00:00: 00 Yes [id number] 40mg Take 1 tablet by mouth in the morning. [facility] ondansetron 4 mg tablet 07-05 00:00: 00 Yes [id number] 4mg Take 1 tablet by mouth every 8 (eight) hours as needed for Nausea and Vomiting (N/V). [facility] dicyclomine 20 mg tablet 07-05 00:00: 00 Yes [id number] 20mg Take 1 tablet by mouth every 6 (six) hours as needed for Abdominal pain. [facility] ondansetron (ZOFRAN (PF)) injection 4 mg 07-04 23:45: 00 07-04 23:36 :00 No 4mg 4 mg, Slow IV Push, ONCE, 1 dose, On 07/04/24 at 1845, Administer over 2-5 Minutes, 2 mL [facility] morpHINE (4 mg/mL) injection 4 mg 07-04 23:45: 00 07-04 23:34 :00 No 4mg 4 mg, Slow IV Push, ONCE, 1 dose, On 07/04/24 at 1845, STAT [facility] maalox/diph enhydrAMINE :lidocaine2 %viscous 1:1:1: suspension (COMPOUNDED ) 07-04 23:30: 00 07-04 23:34 :00 No 15mL 15 mL, Oral, ONCE, 1 dose, On 07/04/24 at 1830, KATIE [facility] escitalopra m oxalate 10 mg tablet 2023-04 00:00: 00 Yes 10mg Take 1 tablet by mouth in the morning. [facility] buPROPion XL 150 mg 24 hr tablet 2023-04 00:00: 00 Yes 150mg Take 1 tablet by mouth every morning. [facility] dicyclomine (BENTYL) tablet 20 mg 07-10 03:30: 00 07-10 03:29 :00 No 20mg 20 mg, Oral, ONCE, 1 dose, On 07/10/23 at 2230, KATIE [facility] iopamidol (ISOVUE 370-500 mL) injection 80 mL 07-10 03:00: 00 07-10 03:00 :00 No [id number] 80mL 80 mL, Intravenou s, ONCE, 1 dose, On Sat07/10/23 at 2200, Routine [facility] ketorolac (TORADOL) injection 15 mg 07-10 02:45: 00 07-10 02:19 :00 No 15mg 15 mg, Slow IV Push, ONCE, 1 dose, On Sat07/10/23 at 2145, KATIE [facility] FENTanyl PF (SUBLIMAZE (PF)) injection 50 mcg 07-10 01:45: 00 07-10 00:54 :00 No 50ug 50 mcg, Slow IV Push, ONCE, 1 dose, On Sat07/10/23 at 2045, Routine [facility] ondansetron (ZOFRAN (PF)) injection 4 mg 07-10 01:15: 00 07-10 00:33 :00 No 4mg 4 mg, Slow IV Push, ONCE, 1 dose, On Sat07/10/23 at 2015, [facility] NaCl 0.9% (NS) bolus infusion 1,000 mL 07-10 01:00: 00 07-10 01:39 :00 No 1000mL at 999 mL/hr, 1,000 mL, IV Infusion, ONCE, 1 dose, On Sat07/10/23 at 2000, [facility] dicyclomine 20 mg tablet 07-09 00:00: 00 04-06 00:00 :00 No [id number] 20mg Take 1 tablet by mouth every 6 (six) hours. [facility] ondansetron 4 mg disintegrat ing tablet 07-09 00:00: 00 04-06 00:00 :00 No [id number] 4mg Take 1 tablet by mouth every 8 (eight) hours as needed for Nausea and Vomiting (N/V). [facility] FOLIC ACID OR 9-20 13:37: 31 Yes Take by mouth Krysten Guajardo ketorolac (TORADOL) injection 15 mg 5-25 19:30: 00 08-30 18:35 :00 No 15mg 15 mg, Slow IV Push, ONCE, 1 dose, 08/30/20 at 1430, KATIE
Fa culty member approving Restricted medication : JENN MANRIQUE [facility] diphenhydrA MINE (BENADRYL) injection 25 mg 08-30 19:30: 00 08-30 18:32 :00 No 25mg 25 mg, Slow IV Push, ONCE, 1 dose, 08/30/20 at 1430, STAT [facility] metoclopram rufino HCl (REGLAN) injection 10 mg 08-30 19:30: 00 08-30 18:32 :00 No 10mg 10 mg, Slow IV Push, ONCE, 1 dose, 08/30/20 at 1430, KATIE [facility] iopamidol (ISOVUE 370-500 mL) injection 120 mL 08-30 19:06: 00 08-30 19:06 :00 No [id number] 120mL 120 mL, Intravenou s, ONCE, 1 dose, 08/30/20 at 1415, Routine [facility] NaCl 0.9% (NS) bolus infusion 1,000 mL 08-30 18:30: 00 08-30 19:45 :00 No 1000mL at 999 mL/hr, 1,000 mL, IV Infusion, ONCE, 1 dose, 08/30/20 at 1330, KATIE [facility] ondansetron 4 mg disintegrat ing tablet 08-30 00:00: 00 07-09 00:00 :00 No [id number] 4mg Take 1 tablet by mouth every 8 (eight) hours as needed for Nausea and Vomiting (N/V). [facility] dicyclomine 10 mg capsule 08-30 00:00: 00 07-09 00:00 :00 No [id number] 10mg Take 1 capsule by mouth 4 (four) times daily as needed for Abdominal pain. [facility] butalbital- acetaminoph en-caff 50-325-40 mg tablet 2018-04 0-15 00:00: 00 04-06 00:00 :00 No [id number] 1{tbl} Take 1 tablet by mouth every 6 (six) hours as needed (Headache) . [facility] multivitami n ( VITAMIN) tablet 05-28 00:00: 00 Yes [id number] 1{tbl} Take 1 Tab by mouth daily. [facility] multivitami n ( VITAMIN) tablet 05-28 00:00: 00 Yes [id number] 1{tbl} Take 1 Tab by mouth daily. [facility] Immunizations Ordered Immunization Name Filled Immunization Name Date Status Comments Source Tdap- (Boostrix, Adacel) 2020-02-01 00:00:00 Completed Krysten Guajardo Influenza Virus Vaccine, No Preserv, age 6 months and up 2019-12-15 00:00:00 Completed Krysten Guajardo Tdap- (Boostrix, Adacel) 2017-04-02 00:00:00 Completed Krysten Guajardo Influenza, split virus, trivalent, preservative (3+ Yrs) (Afluria) 2013-05-28 00:00:00 Completed Influenza Virus Vaccine (3+ yrs) 2013-05-28 00:00:00 Completed [facility] Influenza Virus Vaccine (3+ yrs) 2013-05-28 00:00:00 Completed [facility] Influenza Virus Vaccine (3+ yrs) 2013-05-28 00:00:00 Completed [facility] Influenza Virus Vaccine (3+ yrs) 2013-05-28 00:00:00 Completed [facility] Influenza Virus Vaccine (3+ yrs) 2013-05-28 00:00:00 Completed [facility] Influenza, Seasonal, Injectable 2013-05-28 00:00:00 Completed Krysten Guajardo Influenza Virus Vaccine (3+ yrs) Unknown Completed [facility] Vital Signs Vital Name Observation Time Observation Value Comments S ource Heart rate 2024-07-05 06:30:00 78 /min [facility]ive [facility] Body temperature 2024-07-05 06:30:00 37.06 Nata [facility] Oxygen saturation in Arterial blood by Pulse oximetry 2024-07-05 06:30:00 100 /min [facility] Systolic blood pressure 2024-07-05 06:00:00 131 mm[Hg] [facility] Diastolic blood pressure 2024-07-05 06:00:00 88 mm[Hg] [facility] Respiratory rate 2024-07-05 06:00:00 16 /min [facility] Body height 2024-07-04 23:01:00 162.6 cm [facility] Body weight 2024-07-04 23:01:00 90.719 kg [facility] BMI 2024-07-04 23:01:00 34.33 kg/m2 [facility] Systolic blood pressure 2024-04-06 14:58:00 119 mm[Hg] [facility] Diastolic blood pressure 2024-04-06 14:58:00 81 mm[Hg] [facility] Heart rate 2024-04-06 14:58:00 82 /min [facility] Body temperature 2024-04-06 14:58:00 36.22 Nata [facility] Respiratory rate 2024-04-06 14:58:00 18 /min [facility] Body height 2024-04-06 14:58:00 162.6 cm [facility] Body weight 2024-04-06 14:58:00 94.348 kg [facility] BMI 2024-04-06 14:58:00 35.70 kg/m2 [facility] Systolic blood pressure 2023-07-11 03:27:00 103 mm[Hg] [facility] Diastolic blood pressure 2023-07-11 03:27:00 57 mm[Hg] [facility] Heart rate 2023-07-11 03:27:00 62 /min [facility] Body temperature 2023-07-11 03:27:00 36.44 Nata [facility] Respiratory rate 2023-07-11 03:27:00 18 /min [facility] Oxygen saturation in Arterial blood by Pulse oximetry 2023-07-11 03:27:00 97 /min [facility] Body height 2023-07-11 00:06:00 162.6 cm [facility] Body weight 2023-07-11 00:06:00 86.183 kg [facility] BMI 2023-07-11 00:06:00 32.61 kg/m2 [facility] Heart rate 2020-12-26 18:32:00 78 /min Kel y [facility] Body temperature 2020-12-26 18:32:00 36.17 Nata Krysten Guajardo Respiratory rate 2020-12-26 18:32:00 16 /min Krysten Guajardo Body height 2020-12-26 18:32:00 162.6 cm Ila Guajardo Body weight 2020-12-26 18:32:00 89.177 kg Ila alonzo [facility] BMI 2020-12-26 18:32:00 33.75 kg/m2 Ilayayo alonzo [place] Systolic blood pressure 2020-12-26 18:32:00 104 mm[Hg] Krysten Leavitto ld Diastolic blood pressure 2020-12-26 18:32:00 64 mm[Hg] Krysten Servinybo ld Systolic blood pressure 2020-08-30 19:00:00 107 mm[Hg] [facility] Diastolic blood pressure 2020-08-30 19:00:00 71 mm[Hg] [facility] Heart rate 2020-08-30 19:00:00 66 /min [facility] Respiratory rate 2020-08-30 19:00:00 18 /min [facility] Oxygen saturation in Arterial blood by Pulse oximetry 2020-08-30 19:00:00 97 /min [facility] Body temperature 2020-08-30 17:57:00 37.06 Nata [facility] Body weight 2020-08-30 12:00:00 81.647 kg [facility] BMI 2020-08-30 12:00:00 30.90 kg/m2 [facility] Systolic blood pressure 2020-04-04 04:00:00 118 mm[Hg] [facility] Diastolic blood pressure 2020-04-04 04:00:00 70 mm[Hg] [facility] Heart rate 2020-04-04 04:00:00 90 /min [facility] Oxygen saturation in Arterial blood by Pulse oximetry 2020-04-04 04:00:00 99 /min [facility] Body temperature 2020-04-04 03:10:00 37 Nata [facility] Respiratory rate 2020-04-04 03:10:00 20 /min [facility] Body height 2020-04-04 03:10:00 162.6 cm [facility] Body weight 2020-04-04 03:10:00 94.802 kg [facility] BMI 2020-04-04 03:10:00 35.87 kg/m2 [facility] Procedures Procedure Date / Time Performed Performing Clinician Source CT ABDOMEN PELVIS WO CONTRAST 2024-07-05 04:01:07 Rodrigue Arriaga [facility] TROPONIN I 2024-07-05 02:24:00 Rodrigue Arriaga [facility] CT CHEST PULMONARY ANGIOGRAM 2024-07-05 01:44:58 Rodrigue Arriaga [facility] XR CHEST 1 VW 2024-07-04 23:46:33 Rodrigue Arriaga [facility] LIPASE 2024-07-04 23:33:00 Rodrigue Arriaga [facility] TROPONIN I 2024-07-04 23:33:00 Rodrigue Arriaga [facility] COMP. METABOLIC PANEL ([id number]) 2024-07-04 23:33:00 Rodrigue Arriaga [facility] CBC WITH DIFF 2024-07-04 23:33:00 Rodrigue Arriaga [facility] URINALYSIS 2024-07-04 23:33:00 Rodrigue Arriaga [facility] POCT TEST 2024-07-04 23:33:00 Regino Arriaga [facility] N-TERMINAL PRO-BNP 2024-07-04 23:33:00 Rodrigue Arriaga [facility] URINE DRUG (IMMUNOASSAY) - COMPREHENSIVE DRUG SCREEN W/O REFLEX 2024-07-04 23:33:00 Rodrigue Arriaga [facility] FENTANYL (IMMUNOASSAY) 2024-07-04 23:33:00 Jovan Arriaga [facility] CT ABDOMEN PELVIS W CONTRAST 2023-07-11 02:01:01 Mis [facility] POCT TEST 2023-07-11 01:39:00 Mis [facility] LIPASE 2023-07-11 00:30:00 Marie Abebe [facility] COMP. METABOLIC PANEL ([id number]) 2023-07-11 00:30:00 Mis [facility] CBC WITH DIFF 2023-07-11 00:30:[address] [facility] [address] ABDOMEN PELVIS W CONTRAST 2020-08-30 19:12:01 Ba Faye [facility] US GALL BLADDER 2020-08-30 18:45:11 Ba Faye U [facility] LIPASE 2020-08-30 18:02:[address] [facility] COMP. METABOLIC PANEL ([id number]) 2020-08-30 18:02:00 Jenn Manrique [facility] CBC WITH DIFF 2020-08-30 18:02:00 Jenn Manrique [facility] URINALYSIS 2020-08-30 18:02:[address] [facility] POCT TEST 2020-08-30 18:02:00 Napoleon Manrique [facility] COVID-19 (ID NOW RAPID TESTING) 2020-08-30 18:02:00 Jenn Manrique [facility] NOTICE OF PRIVACY PRACTICES 2020-08-30 17:47:49 Doctor Unassigned, Rough And Ready [facility] CONSENT/REFUSAL FOR DIAGNOSIS AND TREATMENT 2020-08-30 17:47:37 Doctor Unassigned, [employer] [facility] ASSIGNMENT OF BENEFITS 2020-04-04 02:52:52 Docto r Unassigned, Rough And Ready [facility] CONSENT/REFUSAL FOR DIAGNOSIS AND TREATMENT 2020-04-04 02:51:37 Doctor Unassigned, Rough And Ready [facility] AUTHORIZATION FOR RELEASE OF PHI 2019-05-18 06:01:00 Doctor Unassigned, [employer] And Ready [facility] Encounters Start Date/Time End Date/Time Encounter Type Admission Type Attending [facility] Care Facility Care Department Encounter ID Source 2024-07-04 18:08:00 2024-07-05 01:33:00 Emergency X MICHAEL NARVAEZGLENNMARGOTMICHAEL [facility] ERT [id number] [facility] 2024-07-04 18:08:00 2024-07-05 01:33:00 Emergency Rodrigue ArriagaMichael [facility] 1.2.840.114 350.1.13.10 4.2.7.2.686 [id number] [facility] 2024-04-06 09:00:00 2024-04-06 09:17:14 Office Visit Peyton Wheatley [facility] 1..840.114 350.1.13.10 4.2.7.2.686 [id number] [facility] 2023-07-10 19:12:00 2023-07-10 22:34:00 Emergency [facility] [id number] [facility] 2023-07-10 19:12:00 2023-07-10 22:34:00 Emergency Marie Abebe [facility] 1..840.114 350.1.13.10 4.2.7.2.686 [id number] [facility] 2020-12-27 00:00:00 2020-12-27 00:00:00 Outpatient KATIUSKA RODRIGUEZ [id number] Krysten Guajardo 2020-12-26 14:30:00 2020-12-26 14:30:00 Outpatient LAB90 [facility] [id number] [facility] 2020-12-26 13:28:40 2020-12-26 13:58:40 Pre-surgic al Risk Assessment Katiuska Rodriguez [place] 1.2.840.114 350.1.13.13 [id number] [id number] Krysten Guajardo 2020-08-30 12:49:00 2020-08-30 14:57:00 Emergency Ba Faye [facility] 1.2.840.114 350.1.13.10 4.2.7.2.686 [id number] [facility] 2020-08-30 12:49:00 2020-08-30 12:49:00 Emergency X [facility] ERT [id number] [facility] 2020-08-30 00:00:00 2020-08-30 00:00:00 Orders Only Doctor Unassigned, Rough And Ready [facility] 1.2.840.114 350.1.13.10 4.2.7.2.686 [id number] [facility] 2020-04-03 20:52:00 2020-04-03 22:20:00 Hospital Encounter Morris Spangler [facility] 1.2.840.114 350.1.13.10 4.2.7.2.686 [id number] [facility] 2020-04-03 20:52:00 2020-04-03 20:52:00 Outpatient P MORRIS SPANGLER [facility] MARY ALICE [id number] [facility] 2020-04-03 00:00:00 2020-04-03 00:00:00 Orders Only Doctor Unassigned, Rough And Ready [facility] 1.2.840.114 350.1.13.10 4.2.7.2.686 [id number] [facility] 2019-05-18 00:00:00 2019-05-18 00:00:00 Orders Only Doctor Unassigned, Rough And Ready [facility] 1.2.840.114 350.1.13.10 4.2.7.2.686 [id number] [facility] Results Test Description Test Time Test Comments Results Result Comments Source CT Abdomen pelvis wo contrast 05:01:52 Ordering Physician: RODRIGUE ARRIAGA Clinical indication: Right upper quadrant pain Comparison: July 10, 2023. Technique: CT abdomen and pelvis without intravenous contrast. Thisexamination was performed according to ALARA principles. Technical quality: Adequate Findings: There is excreted contrast material within the urinary tract related to anearlier CTA of the chest. No abnormalities of the kidneys or urinarybladder are apparent. The liver, gallbladder, spleen, pancreas, and adrenalglands are unremarkable. Evaluation of the stomach is limited by lack ofdistention, but no gross gastric abnormalities are apparent. No uterine or adnexal abnormalities are evident. The previously noted IUDhas been removed. There are scattered colonic diverticula. There is noevidence of acute diverticulitis. A normal appendix is identified. There isno bowel distention. There is no free intraperitoneal fluid or freeintraperitoneal air. The included lung bases are clear. No acute bonyabnormalities are evident.Some fatty replacement of the gluteus barbara muscles is unchanged. [facility] [id number] 02:32:41CT SCAN OF THE CHEST WITH CONTRAST 07/04/2024 8:43 PM TECHNIQUE: Multidetector helical CT scan of the chest was performedfollowing the intravenous administration of contrast. Coronal and sagittalreformats as well axial MIPs imaging were acquired. CLINICAL INFORMATION: PE suspected, high pretest probCOMPARISON: Chest x-ray dated 07/04/2024 FINDINGS: CARDIOVASCULAR: The enhancement of the pulmonary artery is adequate. Nopulmonary emboli to the level of the subsegmental pulmonary arteries.The main pulmonary artery is normal in caliber. The thoracic aorta isnormal in caliber.The cardiac size is normal. ?No pericardial effusion. There is nosignificant coronary artery calcification. LYMPH NODES: No thoracic adenopathy. MEDIASTINUM/ LOWER NECK: ?No mediastinal mass is seen.. No actionablethyroid nodule is present. BRONCHOPULMONARY/PLEURA: The central airways are patent. The ?pulmonary parenchyma is normal. Nofocal opacities. No suspicious nodules..No pleural effusion. No pneumothorax. UPPER AB DOMEN: Scattered diverticula in the visualized colon. BONES/ CHEST WALL: No aggressive or acute abnormalities.[id number] 00:41:55* Test Item Value Reference Range Interpretation Comme nts NT-proBNP (test code = 13331-3) <=125 Lab Interpretation (test cod e = 87085-4) Normal [facility] [id number] 00:23:02* Test Item Value Reference Range Interpretation Comme nts TROPONIN I (test code = 8503964999) 0.000 ng/mL <=0.034 MARVIN (test code = MARVIN) Reference (Normal) Range (defined by the 99th percentile reference limit): <= 0.034 ng/mL Note: Cardiac troponin begins to rise 3-4 hours after the onset of ischemia. Repeat in 4-6 hours if the sample was drawn within 3-4 hours of the onset of the symptom and found normal. Diagnosis of myocardial injury is made with acute changes in cTn concentrations with at least one serial sample above the 99th percentile upper reference limit (URL), taken together with the patient's clinical presentation. Biotin has been reported to cause a negative bias, interpret results relative to patient's use of biotin. Lab Interpretation (test code = 25691-1) [facility] [id number] 00:06:50History: chest pain . Exam: XR CHEST 1 VW Date: 07/04/2024 6:30 PM Ordering provider: RODRIGUE ARRIAGAComparison: None available. Findings: Frontal view of the chest is obtained. The cardiac silhouetteis normal in size. No evidence of infiltrate,pleural effusion, CHF, or pneumothorax.[facility] Center[facility]. METABOLIC PANEL ([id number])2024-07-05 00:05:40* Test Item Value Reference Range Interpretation Comme nts NA (test code = 2728667024) 137 mmol/L 135-145 K (test code = 5956573532) 3.9 mmol/L 3.5-5.0 CL (test code = 5038315136) 103 mmol/L 98-108 CO2 TOTAL (test code = 0993259843) 24 mmol/L 23-31 AGAP (test code = 9999029103) 10 2-16 BUN (test code = 6796050472) 13 mg/dL 7-23 GLUCOSE (test code = 4346048838) 103 mg/dL 70-110 CREATININE (test code = 2160-0) 0.70 mg/dL 0.50-1.04 TOTAL BILI (test code = 2532842427) 0.6 mg/dL 0.1-1.1 CALCIUM (test code = 0931997855) 9.6 mg/dL 8.6-10.6 T PROTEIN (test code = 8248582103) 8.1 g/dL 6.3-8.2 ALBUMIN (test code = 2065749075) 4.8 g/dL 3.5-5.0 ALK PHOS (test code = 6343570843) 69 U/L 34-122 ALTv (test code = 1742-6) 37 U/L 5-35 H AST(SGOT) (test code = 6048630611) 27 U/L 13-40 eGFR (test code = 63015-0) 120.2 mL/min/1.73m2 CKD-EPI eGFR (2020). Assuming creatinine has been stable day-to-day for at least three months, the eGFR indicates Category G1 (>= 90 mL/min/1.73 m2) Lab Interpretation (test code = 88332-3) [facility] 00:04:59* Test Item Value Reference Range Interpretation Comme nts LIPASE (test code = 4644200435) 63 U/L 0-220 Lab Interpretation (test cod e = 36607-5) Normal [facility] CenterCBC WITH [id number] 23:56:37* Test Item Value Reference Range Interpretation Comme nts WBC (test code = 6690-2) 8.70 4.30-11.10 RBC (test code = 789-8) 4.49 3.93-5.25 HGB (test code = 718-7) 14.3 g/dL 11.6-15.0 HCT (test code = 4544-3) 42.0 % 35.7-45.2 MCV (test code = 787-2) 93.5 fL 80.6-95.5 MCH (test code = 785-6) 31.8 pg 25.9-32.8 MCHC (test code = 786-4) 34.0 g/dL 31.6-35.1 RDW-SD (test code = 06810-4) 42.6 fL 39.0-49.9 RDW-CV (test code = 788-0) 12.3 % 12.0-15.5 PLT (test code = 777-3) 313 166-358 MPV (test code = 27941-4) 9.9 fL 9.5-12.9 NRBC/100 WBC (test code = 5164678667) 0.0 0.0-10.0 NRBC x10^3 (test code = 6258277193) See_Comment [Automated me ssage] The system which generated this result transmitted reference range: 10*3/?L. The reference range was not used to interpret this result as normal/abnormal. GRAN MAT (NEUT) % (test code = 770-8) 65.5 % IMM GRAN % (test code = 1208365033) 0.20 % LYMPH % (test code = 736-9) 27.0 % MONO % (test code = 5905-5) 5.1 % EOS % (test code = 713-8) 1.7 % BASO % (test code = 706-2) 0.5 % GRAN MAT x10^3(ANC) (test code = 3648411362) 5.70 10*3/uL 1.88-7.09 IMM GRAN x10^3 (test code = 6677936944) 0.00-0.06 LYMPH x10^3 (test code = 731-0) 2.35 10*3/uL 1.32-3.29 MONO x10^3 (test code = 742-7) 0.44 10*3/uL 0.33-0.92 EOS x10^3 (test code = 711-2) 0.15 10*3/uL 0.03-0.39 BASO x10^3 (test code = 704-7) 0.04 10*3/uL 0.01-0.07 [facility] CenterPOCT [id number] 23:33:00* Test Item Value Reference Range Interpretation Comme nts POCT PREG (test code = 1605) Negative On board controls acceptable with C Line (test code = 3574) Yes POCT PREG LOT # (test code = 3575) [id number] POCT PREG TEST DATE ( test code = 3576) 08/31/2025 Lab Interpretation (test cod e = 46558-8) Normal [facility] ABDOMEN PELVIS W [id number] 03:06:34Exam: CT Abdomen and Pelvis With Contrast, 07/10/2023 8:45 PM. Ordering Physician: MARIE ABEBE. History: Abdominal pain, acute, nonlocalized . Comparison: CT abdomen pelvis 08/30/2020. Technique:CT abdomen and pelvis was obtained with intravenous contrast. CTwas performed according to ALARA (As Low As Reasonably Achievable). Technical Quality: Adequate. Findings: LOWER CHEST:Normal. ABDOMEN/PELVIS:Liver: Subtle fatty infiltration along the falciform ligament.Gallbladder/biliary: Normal gallbladder. No biliary ductal dilation.Pancreas: Normal.Spleen: Normal. Adrenal glands: Normal.Kidneysand ureters: Normal.Bladder: Decompressed, which limits evaluation.Reproductive organs: IUD in place Stomach/bowel: Small hiatal hernia. Stomach is unremarkable. Small bowel isdecompressed. No CT evidence of acute appendicitis. Liquid stool in thelarge bowel extending to the rectal vault. Few ascending colon diverticuli.Prominent number of nonenlarged mesenteric nodes. Lymph nodes: No lymphadenopathy.Peritoneum: No intraperitoneal free air. No intraperitoneal free fluid.Vessels: Normal. MUSCULOSKELETAL:Bones: No acute osseous abnormality. Bilateral anterior femoral head neckjunction cystic change possibly related to impingement.Soft tissues: Ventral abdominal wall surgical changes without fl uidcollection or hernia.[facility] CenterPOIA TEST 2023-07-11 01:39:00* Test Item Value Reference Range Interpretation Comme nts POCT PREG (test code = 1605) Negative On board controls acceptable with C Line (test code = 3574) Yes POCT PREG LOT # (test code = 3575) [id number] POCT PREG TEST DATE ( test code = 3576) 07/14/2024 Lab Interpretation (test cod e = 81498-9) Normal [facility]. METABOLIC PANEL (61796)2023-07-11 01:06:55* Test Item Value Reference Range Interpretation Comme nts NA (test code = 1316960693) 140 mmol/L 135-145 K (test code = 6201015731) 3.8 mmol/L 3.5-5.0 CL (test code = 4209250893) 104 mmol/L 98-108 CO2 TOTAL (test code = 1292665389) 23 mmol/L 23-31 AGAP (test code = 5123051869) 13 2-16 BUN (test code = 3886377807) 17 mg/dL 7-23 GLUCOSE (test code = 5200501859) 125 mg/dL 70-110 H CREATININE (test code = 2160-0) 0.90 mg/dL 0.50-1.04 TOTAL BILI (test code = 0390242701) 1.0 mg/dL 0.1-1.1 CALCIUM (test code = 4750880183) 9.9 mg/dL 8.6-10.6 T PROTEIN (test code = 8496197514) 9.7 g/dL 6.3-8.2 H ALBUMIN (test code = 1046020383) 5.1 g/dL 3.5-5.0 H ALK PHOS (test code = 7497357750) 88 U/L 34-122 ALTv (test code = 1742-6) 32 U/L 5-35 AST(SGOT) (test code = 4011113181) 32 U/L 13-40 eGFR (test code = 19959-0) 89.5 mL/min/1.73m2 Lab Interpretation (test cod e = 89524-8) [facility]normal [facility] CenterLIPASE2024-04-04 01:06:55* Test Item Value Reference Range Interpretation Comme nts LIPASE (test code = 9987997119) 55 U/L 0-220 Lab Interpretation (test cod e = 04766-0) Normal [facility] CenterCBC WITH [id number] 01:05:39* Test Item Value Reference Range Interpretation Comme nts WBC (test code = 6690-2) 18.66 4.30-11.10 H RBC (test code = 789-8) 5.25 3.93-5.25 HGB (test code = 718-7) 16.5 g/dL 11.6-15.0 H HCT (test code = 4544-3) 48.0 % 35.7-45.2 H MCV (test code = 787-2) 91.4 fL 80.6-95.5 MCH (test code = 785-6) 31.4 pg 25.9-32.8 MCHC (test code = 786-4) 34.4 g/dL 31.6-35.1 RDW-SD (test code = 99550-7) 42.6 fL 39.0-49.9 RDW-CV (test code = 788-0) 12.7 % 12.0-15.5 PLT (test code = 777-3) 341 166-358 MPV (test code = 46332-8) 9.9 fL 9.5-12.9 NRBC/100 WBC (test code = 6548324086) 0.0 0.0-10.0 NRBC x10^3 (test code = 3266556792) See_Comment [Automated message] The system which generated this result transmitted reference range: 10*3/?L. The reference range was not used to interpret this result as normal/abnormal. GRAN MAT (NEUT) % (test code = 770-8) 85.7 % IMM GRAN % (test code = 0137796325) 0.50 % LYMPH % (test code = 736-9) 8.1 % MONO % (test code = 5905-5) 4.4 % EOS % (test code = 713-8) 1.0 % BASO % (test code = 706-2) 0.3 % GRAN MAT x10^3(ANC) (test code = 9305258428) 15.99 10*3/uL 1.88-7.09 H IMM GRAN x10^3 (test code = 5416832204) 0.09 10*3/uL 0.00-0.06 H LYMPH x10^3 (test code = 731-0) 1.52 10*3/uL 1.32-3.29 MONO x10^3 (test code = 742-7) 0.82 10*3/uL 0.33-0.92 EOS x10^3 (test code = 711-2) 0.19 10*3/uL 0.03-0.39 BASO x10^3 (test code = 704-7) 0.05 10*3/uL 0.01-0.07 Lab Interpretation (test code = 05659-1) Abnormal [facility] CenterCT [facility]EN PEL[facility] W [id number] 19:22:31CT Abdomen and Pelvis with intravenous contrast. CLINICAL HISTORY: Acute Abdominal pain. DOSE: Up-to-date CT equipment and radiation dose reduction techniques wereemployed. CTDIvol: 9.61 mGy. DLP: 484 mGy-cm. TECHNIQUE : Contiguous axial imaging from the level of the lung basesthrough the pubic symp hysis were performed after the uncomplicatedadministration of Omnipaque contrast material. ?[place] sagittalreconstructions were obtained. Auto mA and/or iterative [...] appendix is visualized. Bladder and Reproductive Organs: IUDappears to be in good position withinthe uterus. Cystic lesions are seen in both adnexa, ranging from 15 mm orsmaller in size, consistent with physiologic changes. Grossly unremarkableunder distendedand unopacified urinary bladder. Bones: Unremarkable. Soft tissues: [...] obtained. Auto mA and/or iterative reconstruction wereused toreduce radiation dose.FINDINGS: Lower lungs: Clear. No pleural [...] Unremarkable pancreas and adrenal glands.Kidneys and Ureters: Novisible calculi in the renal collecting systems. No hydroureter or hydronephrosis. Vessels: Normal.Patent hepatic/portal venous circulation and renal veins.2 right renal arteries and 2 left renal artery is noted arising from theabdominal aorta.Retroperitoneum: No abnormal fluid or lymphadenopathy.Bowel: No acute findings. Normal appendix is visualized.Bladder and Reproductive Organs: IUD appearsto be in good position withinthe uterus. Cystic lesions are seen in both adnexa, ranging from 15 mmorsmaller in size, consistent with physiologic changes. Grossly unremarkableunder distended and unopacified urinary bladder.Bones: Unremarkable.Soft tissues: Unremarkable.CONCLUSION: No acute intra-abdominal or pelvic abnormalities detected.[facility] GALL [id number] 18:47:24 HISTORY: RUQ Abdominal pain. TECHNIQUE: Gallbladder is evaluated in multiple planes with the patient indifferent positions. Color imaging is utilized. FINDINGS: Gallbladder is of normal size and shape with mild diffusethickening of the hahn. No gallstones. No biliary sludge or crystals seen.No free fluid detected in pericholecystic space. Common hepatic duct is 3.7mm. Hepatic and portal venous system appeared patent. CONCLUSION: No gallstones or any signs of acute cholecystitis detected. [facility],Radiant Results Inft User - 08/30/2020 1:48 PM [...] gallstones or any signs of acute cholecystitis detected.[facility] CenterUrinalysis2021-05-25 18:36:07* Test Item Value Reference Range Interpretation Comme nts APPEARANCE (test code = 1486802093) Clear Clear COLOR (test code = 9633929677) Yellow Yellow PH (test code = 2979334054) 4.8-8.0 SP GRAVITY (test code = 9691627207) 1.003-1.030 GLU U QUAL (test code = 2281062295) Normal Normal BLOOD (test code = 6766512462) Negative Negative KETONES (test code = 1202504133) Negative Negative PROTEIN (test code = 2887-8) Negative Negative UROBILIN (test code = 7173313537) Normal Normal BILIRUBIN (test code = 8849113946) Negative Negative NITRITE (test code = 7053799592) Negative Negative LEUK ROSA (test code = 0166490239) Negative Negative RBC/HPF (test code = 8816921541) See_Comment H [Automated Axcienta ge] The system which generated this result transmitted reference range: 0 - 3 HPF. The reference range was not used to interpret this result as normal/abnormal. WBC/HPF (test code = 9344251187) See_Comment [Automated Axcienta ge] The system which generated this result transmitted reference range: 0 - 5 HPF. The reference range was not used to interpret this result as normal/abnormal. BACTERIA (test code = 2811071998) Few Negative A MUCOUS (test code = 6411347982) Slight Negative LPF A SQ EPITH (test code = 2762014089) HPF Lab Interpretation (test code = 11243-0) Abnormal [facility] CenterComplete Metabolic [id number] 18:31:45* Test Item Value Reference Range Interpretation Comme nts NA (test code = 9410052031) 140 mmol/L 135-145 K (test code = 0970590251) 4.0 mmol/L 3.5-5.0 CL (test code = 1682407550) 104 mmol/L 98-108 CO2 TOTAL (test code = 3209210813) 22 mmol/L 23-31 L AGAP (test code = 2503563574) 2-16 BUN (test code = 2006952818) 17 mg/dL 7-23 GLUCOSE (test code = 7750143263) 115 mg/dL 70-110 H CREATININE (test code = 5910118762) 0.63 mg/dL 0.50-1.04 TOTAL BILI (test code = 5114006489) 0.7 mg/dL 0.1-1.1 CALCIUM (test code = 9674806104) 9.6 mg/dL 8.6-10.6 T PROTEIN (test code = 2673488397) 7.9 g/dL 6.3-8.2 ALBUMIN (test code = 1429185586) 4.9 g/dL 3.5-5.0 ALK PHOS (test code = 0618261938) 87 U/L 34-122 ALTv (test code = 1742-6) 34 U/L 5-35 AST(SGOT) (test code = 2484126610) 33 U/L 13-40 eGFR (test code = 0735022050) mL/min/1.73m2 MARVIN (test code = MARVIN) Association of [...] or abnormalities in imaging tests). 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 It is used under Emergency Use [...] patient testing if clinically indicated. Lab Interpretation (test code = 32010-4) Normal [facility] CenterLipase, [id number] 18:31:08* Test Item Value Reference Range Interpretation Comme nts LIPASE (test code = 0751728632) 64 U/L 0-220 Lab Interpretation (test cod e = 73585-8) Normal [facility] CenterCB with [id number] 18:23:02* Test Item Value Reference Range Interpretation Comme nts WBC (test code = 6690-2) See_Comment H [Automated message] The system which generated this result transmitted reference range: 4.30 - 11.10 10*3/?L. The reference range was not used to interpret this result as normal/abnormal. RBC (test code = 789-8) See_Comment [Automated message] The system which generated this result transmitted reference range: 3.93 - 5.25 10*6/?L. The reference range was not used to interpret this result as normal/abnormal. HGB (test code = 718-7) 15.6 g/dL 11.6-15.0 H HCT (test code = 4544-3) 45.3 % 35.7-45.2 H MCV (test code = 787-2) 93.6 fL 80.6-95.5 MCH (test code = 785-6) 32.2 pg 25.9-32.8 MCHC (test code = 786-4) 34.4 g/dL 31.6-35.1 RDW-SD (test code = 60806-7) 40.7 fL 39.0-49.9 RDW-CV (test code = 788-0) 11.7 % 12.0-15.5 L PLT (test code = 777-3) See_Comment [Automated message] The system which generated this result transmitted reference range: 166 - 358 10*3/?L. The reference range was not used to interpret this result as normal/abnormal. MPV (test code = 19843-5) 9.9 fL 9.5-12.9 NRBC/100 WBC (test code = 8866745873) See_Comment [Automated message] The system which generated this result transmitted reference range: 0.0 - 10.0 /100 WBCs. The reference range was not used to interpret this result as normal/abnormal. NRBC x10^3 (test code = 5475477251) <0.01 See_Comment [Automated message] The system which generated this result transmitted reference range: 10*3/?L. The reference range was not used to interpret this result as normal/abnormal. GRAN MAT (NEUT) % (test code = 770-8) 85.9 % IMM GRAN % (test code = 4127219507) 0.40 % LYMPH % (test code = 736-9) 9.5 % MONO % (test code = 5905-5) 2.6 % EOS % (test code = 713-8) 1.3 % BASO % (test code = 706-2) 0.3 % GRAN MAT x10^3(ANC) (test code = 3037619766) 11.01 10*3/uL 1.88-7.09 H IMM GRAN x10^3 (test code = 5078669975) 0.05 10*3/uL 0.00-0.06 LYMPH x10^3 (test code = 731-0) 1.21 10*3/uL 1.32-3.29 L MONO x10^3 (test code = 742-7) 0.33 10*3/uL 0.33-0.92 EOS x10^3 (test code = 711-2) 0.16 10*3/uL 0.03-0.39 BASO x10^3 (test code = 704-7) 0.04 10*3/uL 0.01-0.07 Lab Interpretation (test code = 31014-4) [facility]normal [facility] CenterPOCT [id number] 18:02:00* Test Item Value Reference Range Interpretation Comme nts POCT PREG (test code = 1605) negative On board controls acceptable with C Line (test code = 3574) present Lab Interpretation (test cod e = 11159-9) Normal [facility] Notes Date/Time Note Provider Source 2024-07-05 01:33:01 Pt given printed and verbal discharge instructions regarding chest pain, encouraged hydration, Prescriptions provided Pt verbalized understanding of instructions, pt awake alert oriented, resp reg unlabored, skin w/d, color appropriate for race, moves all ext well,pt encouraged to follow up with pcp Advised to seek medical attention for new/prolonged/worsening of symptoms, Symptoms No adverse reaction to meds given in ER noted upon discharge PIV d'cd, dressing to site, catheter in tact. Awake, alert oriented, resp reg unlabored, skin w/d, pt leaving amb with steady gait, in no apparent distress, someone else driving her home Kiran Lora RN [facility] 2024-07-05 01:16:46 Nurse to nurse patient care report given to kiran BLANCHARD Abby Kennedy RN [facility] 2024-07-04 17:59:37 Patient states: "I'm having pain right here (points to epigastric area). I was drinking water and it was hurting. It goes to the middle of my back." Pmhx: diverticulitis, Shannon Perez RN [facility] 2023-07-10 22:33:23 Pt given printed and verbal discharge instructions regarding gastroenteritis, encouraged hydration, Prescriptions sent to pharmacy Pt verbalized understanding of instructions, pt awake alert oriented, resp reg unlabored, skin w/d, color appropriate for race, moves all ext well,pt encouraged to follow up with pcp. Advised to seek medical attention for new/prolonged/worsening of symptoms, Symptoms nausea and vomiting after taking medication No adverse reaction to meds given in ER noted upon discharge PIV d'cd, dressing to site, catheter in tact. Awake, alert oriented, resp reg unlabored, skin w/d, pt leaving amb with steady gait, in no apparent distress, Elizabeth Mcmullen RN [facility] 2023-07-10 19:05:25 Generalized abd pain vomiting diarrhea that started this am Vita Zapata RN [facility] 2023-07-10 19:04:13 No answer in [facility] 2023-07-10 18:52:46 Called from [facility]; no answer. Jocy Helms RN [facility]
[2024-07-14] MEDS ORDERED: ONDANSETRON 4 MG/2 ML VIAL ONE ×2 (16:48→21:46)
[2024-07-14] MEDS ORDERED: MORPHINE 4 MG/ML SYR ONE ×2 (16:48→20:01)
[2024-07-14] MEDS ORDERED: LORazepam 2 MG/ML VIAL ONE (17:05)
[2024-07-14 17:23] LABS: Absolute Eosinophils 0.2 K/uL (0-0.5); Absolute Lymphocytes (CBC) 2.8 K/uL (0.7-4.9); Absolute Monocytes 0.7 K/uL (0.1-1.3); Absolute Neutrophil 5.8 K/uL (1.8-8.0); Basophils % 0.4 % (0-1.3); Hematocrit 40.5 % (36.0-45.0); Hemoglobin 14.2 g/dL (12.0-15.0); Lymphocytes % 29.5 % (15.3-44.8); MCH 31.9 pg (27.0-35.0); MCHC 34.9 g/dL (32.0-36.0); MCV 91.3 fL (80-100); MPV 8.1 fL (7.6-11.3); Monocytes % 7.7 % (3.3-12.3); Neutrophils % 60.4 % (41.7-73.7); Nucleated Red Blood Cells % 0.1 % (0-0); Platelets 306 thou/uL (152-406); RBC Red Blood Cell Count 4.44 M/uL (3.86-4.86); Red Cell Distribution Width 13.4 % (12.1-15.2)
[2024-07-14 17:24] LABS: PT Prothrombin Time 10.9 SECONDS (10-13.0); Protime INR 0.95
[2024-07-14 17:45] LABS: ALT/SGPT 31 U/L (13-56); AST/SGOT 13 U/L (15-37); Albumin 3.7 g/dL (3.4-5.0); Alkaline Phosphatase 66 U/L (45-117); Anion Gap 12.6 mEq/L (5.0-15.0); BUN Blood Urea Nitrogen 13 mg/dL (7-18); Bicarbonate 23 mEq/L (21-32); Bilirubin Direct < 0.2 mg/dL (0-0.2); Bilirubin Total 0.2 mg/dL (0.2-1.0); Globulin 3.6 g/dL (2.3-3.5); Glomerular Filtration Rate 104 ml/min (=/>90); Glucose Level 83 mg/dL (74-106); Lipase 32 U/L (13-75); Magnesium 1.9 mg/dL (1.6-2.4); NT PRO-BNP 20 pg/mL (<125); Potassium 3.6 mEq/L (3.5-5.1); Protein, Total 7.3 g/dL (6.4-8.2); Sodium Level 138 mEq/L (136-145); Troponin High Sensitivity 5.1 pg/mL (<58.9)
--- NOTE | 2024-07-14 17:57 | RAD REPORT ---
Procedure: Chest Single View HISTORY: Chest pain COMPARISON: 2023 FINDINGS: The lungs appear clear of acute infiltrate. No significant pleural effusion noted. The heart is normal size. IMPRESSION: No acute abnormality is displayed.
[2024-07-14 18:14] LABS: Specific Gravity 1.015 (1.005-1.030); Urine Bilirubin NEGATIVE (Negative); Urine Blood Negative (Negative); Urine Clarity Clear (Clear); Urine Color Light-Yellow (Yellow); Urine Glucose NEGATIVE (Negative); Urine Ketones NEGATIVE (Negative); Urine Microscopic Reflex YN NO UMIC; Urine Nitrite NEGATIVE (Negative); Urine Protein NEGATIVE (Negative); Urine Urobilinogen Normal (Normal); Urine pH 7.5 (5.0-7.0)
--- NOTE | 2024-07-14 19:01 | RAD REPORT ---
EXAM: Abdominal exam Limited ultrasound CLINICAL HISTORY: Abdominal pain COMPARISON: 2023 FINDINGS: A gallstone is not seen. Gallbladder wall not thickened. Biliary tree normal caliber IMPRESSION: No significant abnormalities displayed
--- NOTE | 2024-07-14 19:01 | RAD REPORT ---
EXAM: CTA of the chest, abdomen and pelvis HISTORY: Chest and abdominal pain COMPARISON: 2017 and 2023 TECHNIQUE: Multiple contiguous axial images were obtained a CTA of the chest and abdomen with contras t per aortic dissection protocol. Sagittal and coronal 3-D MIP reformats were performed. 100 cc Isovue-370 administered intravenously.Automated exposure control, adjustment of the mA and kV accordi ng to the patient size, and iterative reconstruction. Unless otherwise specified, incidental findings do not require dedicated imaging follow-up. FINDINGS: An aortic dissection not seen. No aortic aneurysm Celiac, SMA and URSULA do not demonstrate a significant abnormality. Renal arteries do not demonstrate a significant abnormality. Lungs are clear Liver, spleen, pancreas, adrenals, kidneys and bladder do not demonstrate a significant abnormality No evidence of diverticulitis. Normal appendix. 2 cm irregularly-shaped right ovarian cyst likely has recently ruptured. No significant free fluid. N o follow-up imaging recommended. IMPRESSION: No evidence of an aortic dissection
[2024-07-14] MEDS ORDERED: KETOROLAC 30 MG/ML INJ ONE (19:20)
[2024-07-14] MEDS ORDERED: dexAMETHasone 10 MG/ML VIAL ONE (19:20)
[2024-07-14] MEDS ORDERED: FAMOTIDINE 20 MG/2 ML VIAL IV ONE (19:21)
[2024-07-14] MEDS ORDERED: DIAZEPAM 5 MG TABLET ONE (19:21)
--- NOTE | 2024-07-14 19:45 | EDPHYS ---
Physician Documentation [facility] Name: Nataly Sparrow Age: 29 yrs Sex: Female : 1995 Arrival Date: 07/14/2024 Time: 16:30 Bed 17 Private MD: ED Physician Cesar Amos HPI: 07/14 19:39 This 29 yrs old Female presents to ER via EMS with complaints of Back Pain, poncho Abdominal Pain. 19:39 The patient presents with pain that is acute, with no known mechanism of injury. The poncho symptoms are located in the low back, thoracic area and lumbar area. Onset: The symptoms/episode began/occurred 2 day(s) ago. The pain radiates to the thoracic area. Associated signs and symptoms: The patient has no apparent associated signs or symptoms. Modifying factors: The patient symptoms are alleviated by nothing, the patient symptoms are aggravated by any movement. Severity of symptoms: At their worst the symptoms were moderate, in the emergency department the symptoms are unchanged. The patient has not experienced similar symptoms in the past. 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 - Infectious Disease History:: Denies. - Social history:: Smoking status: Reported history of juuling and/or vaping. - Family history:: not pertinent. ROS: 19:39 Constitutional: Negative for fever, chills, and weight loss, Eyes: Negative for injury, poncho pain, redness, and discharge, ENT: Negative for injury, pain, and discharge, Neck: Negative for injury, pain, and swelling, Cardiovascular: Negative for chest pain, palpitations, and edema, Respiratory: Negative for shortness of breath, cough, wheezing, and pleuritic chest pain, : Negative for injury, bleeding, discharge, and swelling, MS/Extremity: Negative for injury and deformity, Skin: Negative for injury, rash, and discoloration, Neuro: Negative for headache, weakness, numbness, tingling, and seizure, Psych: Negative for depression, anxiety, suicide ideation, homicidal ideation, and hallucinations, Allergy/Immunology: Negative for hives, rash, and allergies, Endocrine: Negative for neck swelling, polydipsia, polyuria, polyphagia, and marked weight changes, Hematologic/Lymphatic: Negative for swollen nodes, abnormal bleeding, and unusual bruising, 19:39 Abdomen/GI: Positive for abdominal pain, abdominal cramps, 19:39 Back: Positive for decreased range of motion, pain at rest, pain with movement, of the thoracic area and lumbar area, Exam: 19:39 Constitutional: This is a well developed, well nourished patient who is awake, alert, poncho and in no acute distress. Head/Face: Normocephalic, atraumatic. Eyes: Pupils equal round and reactive to light, extra-ocular motions intact. Lids and lashes normal. Conjunctiva and sclera are non-icteric and not injected. Cornea within normal limits. Periorbital areas with no swelling, redness, or edema. ENT: Nares patent. No nasal discharge, no septal abnormalities noted. Tympanic membranes are normal and external auditory canals are clear. Oropharynx with no redness, swelling, or masses, exudates, or evidence of obstruction, uvula midline. Mucous membranes moist. Neck: Trachea midline, no thyromegaly or masses palpated, and no cervical lymphadenopathy. Supple, full range of motion without nuchal rigidity, or vertebral point tenderness. No Meningismus. Chest/axilla: Normal chest wall appearance and motion. Nontender with no deformity. No lesions are appreciated. Cardiovascular: Regular rate and rhythm with a normal S1 and S2. No gallops, murmurs, or rubs. Normal PMI, no JVD. No pulse deficits. Respiratory: Lungs have equal breath sounds bilaterally, clear to auscultation and percussion. No rales, rhonchi or wheezes noted. No increased work of breathing, no retractions or nasal flaring. Abdomen/GI: Soft, non-tender, with normal bowel sounds. No distension or tympany. No guarding or rebound. No evidence of tenderness throughout. Skin: Warm, dry with normal turgor. Normal color with no rashes, no lesions, and no evidence of cellulitis. MS/ Extremity: Pulses equal, no cyanosis. Neurovascular intact. Full, normal range of motion., bilateral aka Neuro: Awake and alert, GCS 15, oriented to person, place, time, and situation. Cranial nerves II-XII grossly intact. Motor strength 5/5 in all extremities. Sensory grossly intact. Cerebellar exam normal. Normal gait. Psych: Awake, alert, with orientation to person, place and time. Behavior, mood, and affect are within normal limits. 19:39 Back: pain, that is mild, that is moderate, ROM is painful, normal spinal alignment noted, CVA tenderness, is absent, muscle spasm, is appreciated in the left low back, left mid back, right mid back and right low back, Vital Signs: 16:37 BP 120 / 90; Pulse 85; Resp 18; Temp 98.5; Pulse Ox 98% ; Weight 90.72 kg; Height 5 ft. me1 4 in. ; Pain 9/10; 17:15 BP 115 / 67; Pulse 69; Resp 22; Pulse Ox 97% ; me1 17:40 Pain 6/10; me1 18:15 BP 135 / 75; Pulse 69; Resp 15; Pulse Ox 100% ; ap3 19:00 BP 136 / 81; Pulse 76; Resp 17; Pulse Ox 98% ; ap3 20:22 BP 129 / 95; Pulse 81; Resp 17 S; Pulse Ox 99% on R/A; Pain 8/10; lg3 22:04 BP 127 / 89; Pulse 77; Resp 18 S; Pulse Ox 99% on R/A; lg3 16:37 Body Mass Index 34.33 (90.72 kg, 162.56 cm) me1 16:37 Pain Scale: Adult me1 17:40 Pain Scale: Adult me1 20:22 Pain Scale: Adult lg3 Yoel Coma Score: 19:39 Eye Response: spontaneous(4). Motor Response: obeys commands(6). Verbal Response: poncho oriented(5). Total: 15. MDM: 16:48 Medical Screening Exam initiated poncho 19:41 Differential diagnosis: arthritis, Basilar Pneumonia Cholelithiasis chronic back pain, poncho Fatigue Hydronephrosis Joint Injury Ligament Injury Neoplasm Obesity Osteoarthritis Osteomalacia Osteomyelitis Osteoporosis Pyelonephritis Renal Infarction ruptured disc. Data reviewed: vital signs, nurses notes, EMS record, lab test result(s), EKG, radiologic studies, CT scan, plain films, ultrasound. Consideration of Admission/Observation Escalation of care including admission/observation considered. I considered the following discharge prescriptions or medication management in the emergency department Medications were administered in the Emergency Department. See MAR. Independent interpretation of the following test(s) in the Emergency Department EKG: See my EKG interpretation above. Test considered but Not performed: MRI: no mri spine. Historians other than the Patient: EMS: ems well informed. Care significantly affected by the following chronic conditions: anxiety, thyroid problem. 07/14 16:50 Order name: Basic Metabolic Panel; Complete Time: 19:10 [facility] 07/14 16:50 Order name: CBC with Diff; Complete Time: 19:10 [facility] 07/14 16:50 Order name: LFT's; Complete Time: 19:10 [facility] 07/14 16:50 Order name: Magnesium; Complete Time: 19:10 [facility] 07/14 16:50 Order name: NT PRO-BNP; Complete Time: 19:10 [facility] 07/14 16:50 Order name: PT-INR; Complete Time: 19:10 [facility] 07/14 16:50 Order name: Troponin HS; Complete Time: 19:10 [facility] 07/14 16:50 Order name: Lipase; Complete Time: 19:10 [facility] 07/14 16:50 Order name: Urinalysis w/ reflexes; Complete Time: 19:10 [facility] 07/14 16:50 Order name: PREGU; Complete Time: 19:10 [facility] 07/14 16:50 Order name: Test, Serum; Complete Time: 19:10 [facility] 07/14 16:50 Order name: XRAY Chest (1 view); Complete Time: 19:10 [facility] 07/14 16:50 Order name: CT Aorta for Dissection; Complete Time: 19:10 [facility] 07/14 16:52 Order name: US Abdomen Limited; Complete Time: 19:10 [facility] 07/14 16:50 Order name: Cardiac monitoring; Complete Time: 17:17 [facility] 07/14 16:50 Order name: EKG - Nurse/Tech; Complete Time: 17:17 [facility] 07/14 16:50 Order name: IV Saline Lock; Complete Time: 16:52 [facility] 07/14 16:50 Order name: Labs collected and sent; Complete Time: 16:52 [facility] 07/14 16:50 Order name: O2 Per Protocol; Complete Time: 17:17 07/14 16:50 Order name: O2 Sat Monitoring; Complete Time: 17:17 [facility] Administered Medications: 17:07 Drug: morphine IVP or IV 4 mg IVP once over 4 mins Route: IVP; Infused Over: 4 mins; me1 Site: left antecubital; 17:40 Follow up: Pain 6/10 Adult; Response: No adverse reaction; Pain is decreased me1 17:07 Drug: Ondansetron IVP 4 mg IVP once; over 2 minutes Route: IVP; Site: left antecubital; me1 17:40 Follow up: Response: No adverse reaction; Nausea is decreased me1 17:08 Drug: Ativan IVP 1 mg IVP once Route: IVP; Site: left antecubital; me1 17:40 Follow up: Response: No adverse reaction; Anxiety decreased me1 17:16 Drug: Ativan IVP 1 mg IVP once Route: IVP; Site: left antecubital; me1 17:40 Follow up: Response: No adverse reaction; Anxiety decreased me1 19:29 Drug: Ketorolac IVP 30 mg IVP once Route: IVP; Site: left antecubital; lg3 20:08 Follow up: Response: No adverse reaction lg3 19:29 Drug: Diazepam PO 10 mg PO once Route: PO; lg3 20:08 Follow up: Response: No adverse reaction; No change in condition lg3 19:29 Drug: Decadron - Dexamethasone IVP 10 mg IVP once Route: IVP; Site: left antecubital; lg3 20:08 Follow up: Response: No adverse reaction lg3 19:29 Drug: Famotidine IVP 20 mg IVP once; dilute with 10 mL 0.9% NaCl; give over 2 minutes lg3 Route: IVP; Site: left antecubital; 20:08 Follow up: Response: No adverse reaction lg3 20:08 Drug: morphine IVP or IV 4 mg IVP once over 4 mins Route: IVP; Infused Over: 4 mins; lg3 Site: left antecubital; 20:21 Follow up: Response: No adverse reaction; No change in condition; Pain is unchanged, lg3 physician notified 20:21 Drug: HYDROmorphone IVP 2 mg IVP once Route: IVP; Site: left antecubital; lg3 21:52 Follow up: Response: No adverse reaction; Marked relief of symptoms lg3 21:52 Drug: Ondansetron IVP 4 mg IVP once; over 2 minutes Route: IVP; Site: left antecubital; lg3 23:09 Follow up: Response: No adverse reaction; Marked relief of symptoms lg3 21:52 Drug: diphenhydrAMINE IVP 25 mg IVP once Route: IVP; Site: left antecubital; lg3 23:09 Follow up: Response: No adverse reaction lg3 Disposition Summary: 07/14/24 20:13 Hospitalization Ordered Notes: Hospitalization Status: Observation poncho Provider: Verito Loving cha Location: Telemetry/MedSurg (observation)(07/14/24 20:13) poncho Condition: Stable(07/14/24 20:13) poncho Problem: new(07/14/24 20:13) poncho Symptoms: have improved(07/14/24 20:13) poncho Bed/Room Type: Standard [facility] Room Assignment: 404(07/14/24 21:59) rv1 Diagnosis - Strain of muscle and tendon of back wall of thorax poncho - Epigastric abdominal tenderness(07/14/24 20:13) poncho - Unspecified symptoms and signs involving the musculoskeletal system - poncho intractable(07/14/24 20:13) - Chest pain, unspecified poncho Forms: - Medication Reconciliation Form poncho - SBAR form poncho - Leadership Thank You Letter poncho Signatures: Dispatcher [employer] EDCesar Da Silva MD MD cha Able, Lacie RN RN lg3 Kiana Dotson rv1 Zack Montana MD MD sp4 Luz Boone, RN RN me1 Corrections: (The following items were deleted from the chart) 16:51 16:51 BASIC METABOLIC PANEL+C.LAB.BRZ ordered. EDMS EDMS 16:51 16:51 CBC+H.LAB.BRZ ordered. EDMS EDMS 16:51 16:51 HEPATIC FUNCTION+C.LAB.BRZ ordered. EDMS EDMS 16:51 16:51 MAGNESIUM+C.LAB.BRZ ordered. EDMS EDMS 16:51 16:51 PROBNP+C.LAB.BRZ ordered. EDMS EDMS 16:51 16:51 PROTIME (+INR)+COAG.LAB.BRZ ordered. EDMS EDMS 16:51 16:51 Troponin High Sensitivity+C.LAB.BRZ ordered. EDMS EDMS 16:51 16:51 LIPASE+C.LAB.BRZ ordered. EDMS EDMS 16:51 16:51 Urinalysis+U.LAB.BRZ ordered. EDMS EDMS 16:51 16:51 Test, Urine+UC.LAB.BRZ ordered. EDMS EDMS 16:51 16:51 TEST, SERUM+SC.LAB.BRZ ordered. EDMS EDMS 16:51 16:51 Chest Single View+RAD.RAD.BRZ ordered. EDMS EDMS 20:12 19:43 Home poncho poncho 20:12 19:43 new poncho poncho 20:12 19:43 have improved [facility] poncho 20:12 19:43 Stable poncho poncho 20:12 19:43 Unspecified symptoms and signs involving the musculoskeletal system [facility] poncho 20:12 19:43 Low back pain [facility] poncho 20:12 19:44 Epigastric abdominal tenderness [facility] poncho 20:12 19:46 Other ovarian cysts [facility] poncho 21:59 20:13 poncho rv1
--- NOTE | 2024-07-14 19:45 | ER ---
Nurse's Notes [facility] Name: Nataly Sparrow Age: 29 yrs Sex: Female : 1995 Arrival Date: 07/14/2024 Time: 16:30 Bed 17 Private MD: Diagnosis: Strain of muscle and tendon of back wall of thorax;Epigastric abdominal tenderness;Unspecified symptoms and signs involving the musculoskeletal system-intractable;Chest pain, unspecified Presentation: 07/14 16:37 Chief complaint: EMS states: toned out for sudden onset of left upper back pain that me1 has since started shooting around the sides to bilateral upper abd with sob. States pain is 9/10 throbbing/stabbing. 20g LAC. Given ASA 324 mg po. Coronavirus screen: Vaccine status: Patient reports being unvaccinated. Ebola Screen: No symptoms or risks identified at this time. Initial Sepsis Screen: Does the patient meet any 2 criteria? No. Patient's initial sepsis screen is negative. Does the patient have a suspected source of infection? No. Patient's initial sepsis screen is negative. Risk Assessment: Do you want to hurt yourself or someone else? Patient reports no desire to harm self or others. Onset of symptoms was July 14, 2024 at 16:00. 16:37 Method Of Arrival: EMS: [facility] [place] 16:37 Acuity: BELKIS 3 az1 Triage Assessment: 16:46 General: Appears uncomfortable, well groomed, well developed, well nourished, Behavior me1 is cooperative, appropriate for age, anxious, Reports sudden onset of left upper back pain that radiates around to bilateral upper abdomen. 9/10 "throbbing and stabbing". Pain: Complains of pain in left scapular area Pain radiates to right upper quadrant and left upper quadrant Pain currently is 9 out of 10 on a pain scale. Quality of pain is described as stabbing, throbbing, Pain began suddenly, Is continuous. EENT: No signs and/or symptoms were reported regarding the EENT system. Neuro: Level of Consciousness is awake, alert, obeys commands, Oriented to person, place, time, situation, Appropriate for age. Cardiovascular: Reports nausea, shortness of breath, Patient's skin is warm and dry. Respiratory: Reports shortness of breath Airway is patent Respiratory effort is even, unlabored, Respiratory pattern is regular, symmetrical. GI: Reports upper abdominal pain, nausea. : No signs and/or symptoms were reported regarding the genitourinary system. Derm: Skin is intact, is healthy with good turgor, Skin is pink, warm \\T\\ dry. Musculoskeletal: Reports pain in back and abdomen. 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 - Infectious Disease History:: Denies. - Social history:: Smoking status: Reported history of juuling and/or vaping. - Family history:: not pertinent. Screenin:49 [facility] ED Fall Risk Assessment (Adult) History of falling in the last 3 months, me1 including since admission No falls in past 3 months (0 pts) Confusion or Disorientation No (0 pts) Intoxicated or Sedated No (0 pts) Impaired Gait No (0 pts) Mobility Assist Device Used No (0 pt) Altered Elimination No (0 pt) Score/Fall Risk Level 0 - 2 = Low Risk Maintained a safe environment, Provided non-skid footwear, Hourly rounding (assess needs \\T\\ fall precautionary measures) done. Abuse screen: Denies threats or abuse. Nutritional screening: No deficits noted. Tuberculosis screening: No symptoms or risk factors identified. Assessment: 16:49 Reassessment: See triage assessment. me1 19:30 General: Appears in no apparent distress. uncomfortable, Behavior is cooperative, lg3 anxious, restless. Pain: Complains of pain in left upper quadrant Pain radiates to abdomen Pain currently is 8 out of 10 on a pain scale. Noted to be grimacing, guarding, restless. Neuro: No deficits noted. Kelly Agitation-Sedation Scale (RASS): +1 Restless Level of Consciousness is awake, alert, obeys commands, Oriented to person, place, time, situation. Cardiovascular: No deficits noted. Denies chest pain, shortness of breath, Capillary refill < 3 seconds Clubbing of nail beds is absent JVD is absent Patient's skin is warm and dry. Respiratory: No deficits noted. Airway is patent Respiratory effort is even, unlabored, Respiratory pattern is regular, symmetrical. GI: Abdomen is round non-distended, Bowel sounds present X 4 quads. Reports lower abdominal pain. : No signs and/or symptoms were reported regarding the genitourinary system. EENT: No deficits noted. No signs and/or symptoms were reported regarding the EENT system. Derm: No signs and/or symptoms reported regarding the dermatologic system. Skin is intact, is healthy with good turgor, Skin is dry, Skin is normal, Skin temperature is warm. Musculoskeletal: No deficits noted. Circulation, motion, and sensation intact. Range of motion: intact in all extremities. 20:07 General: Appears in no apparent distress. uncomfortable, Behavior is cooperative, lg3 anxious, restless. Pain: Complains of pain in abdomen and left scapular area Pain currently is 10 out of 10 on a pain scale. 20:22 Reassessment: Patient appears in no apparent distress at this time. No changes from lg3 previously documented assessment. Patient and/or family updated on plan of care and expected duration. Pain level reassessed. Patient states symptoms have not improved. 21:51 Reassessment: Patient appears in no apparent distress at this time. No changes from lg3 previously documented assessment. Patient and/or family updated on plan of care and expected duration. Pain level reassessed. Patient states symptoms have not improved. GI: Reports nausea. Vital Signs: 16:37 BP 120 / 90; Pulse 85; Resp 18; Temp 98.5; Pulse Ox 98% ; Weight 90.72 kg; Height 5 ft. me1 4 in. ; Pain 9/10; 17:15 BP 115 / 67; Pulse 69; Resp 22; Pulse Ox 97% ; me1 17:40 Pain 6/10; me1 18:15 BP 135 / 75; Pulse 69; Resp 15; Pulse Ox 100% ; ap3 19:00 BP 136 / 81; Pulse 76; Resp 17; Pulse Ox 98% ; ap3 20:22 BP 129 / 95; Pulse 81; Resp 17 S; Pulse Ox 99% on R/A; Pain 8/10; lg3 22:04 BP 127 / 89; Pulse 77; Resp 18 S; Pulse Ox 99% on R/A; lg3 16:37 Body Mass Index 34.33 (90.72 kg, 162.56 cm) me1 16:37 Pain Scale: Adult me1 17:40 Pain Scale: Adult me1 20:22 Pain Scale: Adult lg3 Yoel Coma Score: 19:39 Eye Response: spontaneous(4). Motor Response: obeys commands(6). Verbal Response: poncho oriented(5). Total: 15. ED Course: 16:36 Patient arrived in ED. al6 16:37 Luz Boone, RN is Primary Nurse. me1 16:46 Triage completed. me1 16:46 Arm band placed on Patient placed in an exam room. me1 16:48 Cesar Amos MD is Attending Physician. poncho 16:49 Patient has correct armband on for positive identification. Bed in low position. Call az1 light in reach. Side rails up X2. Provided Education on: POC. Verbalized understanding.. Client placed on continuous cardiac and pulse oximetry monitoring. NIBP monitoring applied. dynamite shooter on. Pulse ox on. NIBP on. 16:49 No provider procedures requiring assistance completed. Maintain EMS IV. Dressing az1 intact. Good blood return noted. Site clean \\T\\ dry. Gauge \\T\\ site: 20g LAC. Flushed with 10 mL NS. 16:53 Radiology exam delayed due to lab results not completed at this time. (HCG) jc4 (BUN/Creatinine) test not completed at this time. IV insertion attempt and/or patient not having appropriate IV at this time. 17:16 XRAY Chest (1 view) In Process Unspecified. EDMS 17:17 Initial lab(s) drawn, by az, sent to lab. EKG done, by ED staff, reviewed by Cesar Amos MD. 17:42 Radiology exam delayed due to test not completed at this time. nj 17:55 Urine collected: clean catch specimen, cloudy. me1 18:06 US Abdomen Limited In Process Unspecified. EDMS 18:40 CT Aorta for Dissection In Process Unspecified. EDMS 19:30 Door closed. Noise minimized. Warm blanket given. Pillow given. lg3 19:30 Patient maintains SpO2 saturation greater than 95% on room air. lg3 19:43 Juan Luis Butt MD is Referral Physician. poncho 20:12 Verito Loving MD is Hospitalizing Provider. poncho 23:08 Patient admitted, IV remains in place. lg3 Administered Medications: 17:07 Drug: morphine IVP or IV 4 mg IVP once over 4 mins Route: IVP; Infused Over: 4 mins; me1 Site: left antecubital; 17:40 Follow up: Pain 6/10 Adult; Response: No adverse reaction; Pain is decreased me1 17:07 Drug: Ondansetron IVP 4 mg IVP once; over 2 minutes Route: IVP; Site: left antecubital; me1 17:40 Follow up: Response: No adverse reaction; Nausea is decreased me1 17:08 Drug: Ativan IVP 1 mg IVP once Route: IVP; Site: left antecubital; me1 17:40 Follow up: Response: No adverse reaction; Anxiety decreased me1 17:16 Drug: Ativan IVP 1 mg IVP once Route: IVP; Site: left antecubital; me1 17:40 Follow up: Response: No adverse reaction; Anxiety decreased me1 19:29 Drug: Ketorolac IVP 30 mg IVP once Route: IVP; Site: left antecubital; lg3 20:08 Follow up: Response: No adverse reaction lg3 19:29 Drug: Diazepam PO 10 mg PO once Route: PO; lg3 20:08 Follow up: Response: No adverse reaction; No change in condition lg3 19:29 Drug: Decadron - Dexamethasone IVP 10 mg IVP once Route: IVP; Site: left antecubital; lg3 20:08 Follow up: Response: No adverse reaction lg3 19:29 Drug: Famotidine IVP 20 mg IVP once; dilute with 10 mL 0.9% NaCl; give over 2 minutes lg3 Route: IVP; Site: left antecubital; 20:08 Follow up: Response: No adverse reaction lg3 20:08 Drug: morphine IVP or IV 4 mg IVP once over 4 mins Route: IVP; Infused Over: 4 mins; lg3 Site: left antecubital; 20:21 Follow up: Response: No adverse reaction; No change in condition; Pain is unchanged, lg3 physician notified 20:21 Drug: HYDROmorphone IVP 2 mg IVP once Route: IVP; Site: left antecubital; lg3 21:52 Follow up: Response: No adverse reaction; Marked relief of symptoms lg3 21:52 Drug: Ondansetron IVP 4 mg IVP once; over 2 minutes Route: IVP; Site: left antecubital; lg3 23:09 Follow up: Response: No adverse reaction; Marked relief of symptoms lg3 21:52 Drug: diphenhydrAMINE IVP 25 mg IVP once Route: IVP; Site: left antecubital; lg3 23:09 Follow up: Response: No adverse reaction lg3 Medication: 16:49 VIS not applicable for this client. me1 Outcome: 19:43 Discharge ordered by . poncho 20:13 Decision to Hospitalize by Provider. poncho 23:08 Admitted to Med/surg accompanied by tech, via wheelchair, lg3 23:08 Condition: stable 23:08 Instructed on the need for admit, 23:09 Patient left the ED. lg3 Signatures: Dispatcher [employer] Cesar Nation MD MD cha Jordan, Nathan nj Prokisch, Amanda, RN RN ap3 Amanda Brandon RN RN lg3 Luz Boone RN RN me1 Nile Armando 4 Ellie Peraza6
[2024-07-14] MEDS ORDERED: HYDROMORPHONE HCL 2 MG/ML inj ONE (20:19)
[2024-07-14] MEDS ORDERED: DIPHENHYDRAMINE 50 MG/ML VIAL ONE (21:46)
[2024-07-14] MEDS ORDERED: ACETAMINOPHEN 500 MG TAB PO PRN (21:49)
--- NOTE | 2024-07-14 21:51 | P.HP ---
Patient History Date of Service: 07/15/24 History of Present Illness: 29-year-old female with a past medical history of anxiety and depression presenting with abdominal pain. She states the pain radiates to between her shoulders and causes her to feel like she cannot breathe. She states ultimately she feels as if the pain wraps around to her chest. She denies any previous instances of this happening. She did mention 2 weeks ago she went to the hospital for sharp stabbing pain in the stomach. She was told to see a GI doctor but has unable to see a GI doctor as of yet. She was discharged on pantoprazole. She denies any improvement with the drug. She denies any illicit drug use. Upon review of hospital medical records it does seem as if she was admitted in the past for ascending diverticulitis for which she was discharged on antibiotics and a PPI Allergies No Known Allergies Allergy (Verified 09/30/21 01:06) Home Medications: Escitalopram Oxalate 20 tab PO BEDTIME 09/30/21 buPROPion HCL [Bupropion Xl] 300 tab PO DAILY 01/09/24 Pantoprazole Sodium [Protonix] 20 mg PO DAILY 30 Days #30 tab 01/10/24 - Past Medical/Surgical History Diabetic: No -: Anxiety -: Depression -: 01/2014 Psychosocial/ Personal History: Patient lives at home with family - Family History Father Notes: none Mother -: Heart disease, Hypertension, Diabetes - Social History Alcohol use: Yes CD- Drugs: No Caffeine use: No Review of Systems 10-point ROS is otherwise unremarkable General: As per HPI Gastrointestinal: Abdominal Pain Physical Examination - Physical Exam General: Alert, In no apparent distress HEENT: Atraumatic, Normocephalic Neck: Supple, 2+ carotid pulse no bruit Respiratory: Clear to auscultation bilaterally Cardiovascular: No edema, Normal pulses Capillary refill: <2 Seconds Gastrointestinal: Normal bowel sounds Musculoskeletal: No clubbing Integumentary: No rashes Neurological: Normal speech Lymphatics: No axilla or inguinal lymphadenopathy External genitalia: No edema - Studies Laboratory Data (last 24 hrs) 07/14/24 07/14/24 07/14/24 17:02 17:02 17:02 WBC 9.70 Hgb 14.2 Hct 40.5 Plt Count 306 PT 10.9 INR 0.95 Sodium 138 Potassium 3.6 BUN 13 Creatinine 0.79 Glucose 83 Magnesium 1.9 Total Bilirubin 0.2 AST 13 L ALT 31 Alkaline Phosphatase 66 Lipase 32 Assessment and Plan - Plan Abdominal pain Anxiety depression Constipation CT of the chest abdomen pelvis reviewed right ovarian cyst which recently has ruptured Continue pain control Lipase within normal limit IV fluids Senna S nightly Follow-up with GI as outpatient DVT prophylaxis Lovenox - Advance Directives Does patient have a Living Will: No Does patient have a Durable POA for Healthcare: No
[2024-07-14 23:05] VITALS: BMI 36.0
[2024-07-14] MEDS: HYDROMORPHONE HCL 1 MG/ML INJ IV PRN (23:29)
[2024-07-14] MEDS: DOCUSATE NA/SENNA CONC 1 TAB PO PRN (23:29)
[2024-07-14] MEDS: NA CHLORIDE 0.9% 1,000 ML IV SCH (23:30)
[2024-07-15] MEDS: LORazepam 2 MG/ML VIAL IV PRN (02:38)
[2024-07-15] MEDS: POLYETHYL GLY 3350 17 GM/DOSE PO PRN ×2 (05:39→17:35)
[2024-07-15] MEDS: ONDANSETRON 4 MG/2 ML VIAL IV PRN (05:40)
--- NOTE | 2024-07-15 07:44 | P.PN ---
Date of Service: 07/15/24 Subjective: pain unchanged, ~same as yesterday mostly in back / below L shoulder blade, and warps around L chest a long lower rib continues with nausea feeling constipated, hasn't had a BM in 5+ days denies any recent strenuous activity or trauma Physical Exam: GEN: Alert, oriented, anxious appearing CV: Regular rate and rhythm, no edema Pulm: Nonlabored respirations on room air, clear bilaterally ABD: soft, moderate epigastric tenderness MSK: mild-moderate tenderness along the left latissimus dorsi Problem List: Intractable back pain, suspect MSK etiology Epigastric abdominal Pain Constipation Anxiety/Depression Hx diverticulitis (2023) on admission, presents with intractable back pain radiating to upper chest/abdomen. Also feeling constipated-hasn't had a BM in 5+ days. She was seen at [facility] ER ~07/05. CTA chest, CT abdomen were negative for acute findings at [facility]; did note scattered colonic diverticula. Discharged from ER with Protonix, zofran, dicyclomine Describes different stabbing upper abdominal pain at the time when she was seen at [facility]. She reports improvement since then but symptoms haven't completely resolved. Had episode of mild diverticulitis back in Jan 2024. Hasn't followed up with GI since then per patient-since has controlled her symptoms with diet changes Given IV decadron, ativan, toradol, diazepam in ED 07/14 - CT abd noted 2 cm right ovarian cyst likely recently ruptured, otherwise negative. CXR, abdominal u/s both negative Glycolax, senokot added for constipation 07/15 - Pain unchanged. Continues with some intermittent nausea. no BM yet. Back pain seems to be more MSK in etiology given moderate tenderness along left paraspinal muscles. Add flexeril, diclofenac topical for better pain control Add PPI, carafate Dulcolax suppository x1 added VTE: Lovenox Code: Full Dispo: Home, ~2 days Pending pain improves, has BM Time Spent Managing Pts Care (In Minutes): 55
[2024-07-15] MEDS: PANTOPRAZOLE 40MG TABLET PO SCH (07:56)
[2024-07-15] MEDS: SUCRALFATE 1 GM TABLET PO SCH (07:56)
[2024-07-15] MEDS: HYDROCODONE/APAP 5/325 MG TAB PO PRN (07:57)
[2024-07-15] MEDS: CYCLOBENZAPRINE 10 MG TAB PO PRN (10:05)
[2024-07-15] MEDS: BISACODYL 10 MG RECTAL SUPP PR ONE (10:06)
[2024-07-15 10:28] LABS: ALT/SGPT 30 U/L (13-56); Albumin 4.1 g/dL (3.4-5.0); Albumin/Globulin Ratio 1.1 (1.1-1.8); Alkaline Phosphatase 66 U/L (45-117); Anion Gap 11.3 mEq/L (5.0-15.0); BUN Blood Urea Nitrogen 10 mg/dL (7-18); Bicarbonate 23 mEq/L (21-32); Bilirubin Total 0.2 mg/dL (0.2-1.0); Globulin 3.8 g/dL (2.3-3.5); Glomerular Filtration Rate 98 ml/min (=/>90); Glucose Level 148 mg/dL (74-106); Lipase 25 U/L (13-75); Potassium 4.3 mEq/L (3.5-5.1); Protein, Total 7.9 g/dL (6.4-8.2); Sodium Level 136 mEq/L (136-145)
[2024-07-15 10:34] LABS: AST/SGOT < 10 U/L (15-37)
[2024-07-15] MEDS: DICLOFENAC SODIUM 1% TOP SCH (11:21)
--- NOTE | 2024-07-15 11:58 | EKG ---
Test Date: 2024-07-14 Test Time: 17:13:28 [employer]ud Thickener Operator: MEASUREMENT RESULTS: Intervals: Rate: 70 WY: 146 QRSD: 74 QT: 390 QTc: 421 [place]: P: 59 WY: 146 QRS: 81 T: 57 INTERPRETIVE STATEMENTS: Normal sinus rhythm Normal ECG Compared to ECG 12/20/2023 19:35:00 Sinus arrhythmia no longer present Electronically Signed On 07-15-24 11:57:01 CDT by Germán Hamilton
[2024-07-15] MEDS: ENOXAPARIN 40 MG/0.4 ML SQ SCH (16:21)
[2024-07-16 06:50] LABS: Albumin 3.1 g/dL (3.4-5.0); Albumin/Globulin Ratio 0.9 (1.1-1.8); Anion Gap 7.9 mEq/L (5.0-15.0); Bilirubin Total 0.2 mg/dL (0.2-1.0); Globulin 3.5 g/dL (2.3-3.5); Magnesium 1.9 mg/dL (1.6-2.4); Potassium 3.9 mEq/L (3.5-5.1); Protein, Total 6.6 g/dL (6.4-8.2)
--- NOTE | 2024-07-16 09:32 | P.PN ---
Date of Service: 07/16/24 Subjective: pain unchanged, ~same as yesterday mostly in back / below L shoulder blade, and warps around L chest a long lower rib feels muscle relaxer seems to help yesterday started more with epigastric pain as well - nothing particularly worsens/improves it, but difficult to gauge, pt focusing on pain still present vs gone still no BM Physical Exam: GEN: Alert, oriented, anxious appearing CV: Regular rate and rhythm, no edema Pulm: Nonlabored respirations on room air, clear bilaterally ABD: soft, moderate epigastric tenderness MSK: mild-moderate tenderness inferior to left scapula, and along lower ribs Problem List: Intractable back pain, suspect MSK etiology Epigastric abdominal Pain Constipation Anxiety/Depression Hx diverticulitis (2023) on admission, presents with intractable back pain radiating to upper chest/abdomen. Also feeling constipated-hasn't had a BM in 5+ days. She was seen at [facility] ER ~07/05. CTA chest, CT abdomen were negative for acute findings at [facility]; did note scattered colonic diverticula. Discharged from ER with Protonix, zofran, dicyclomine Describes different stabbing upper abdominal pain at the time when she was seen at [facility]. She reports improvement since then but symptoms haven't completely resolved. Had episode of mild diverticulitis back in Jan 2024. Hasn't followed up with GI since then per patient-since has controlled her symptoms with diet changes Given IV decadron, ativan, toradol, diazepam in ED 07/14 - CT abd noted 2 cm right ovarian cyst likely recently ruptured, otherwise negative. CXR, abdominal u/s both negative Glycolax, senokot added for constipation 07/15 - Pain unchanged. Continues with some intermittent nausea. no BM yet. Back pain seems to be more MSK in etiology given moderate tenderness along left paraspinal muscles. Add flexeril, diclofenac topical for better pain control Add PPI, carafate Dulcolax suppository x1 added 07/16 no BM yet feels slightly bloated epigastric pain started 07/15 back pain - point tenderness of muscle just over and inferior to L scapula continue bowel regimen continue pain meds - flexeril/diclofenac cream suspect gastritis/possible gastric ulcer GI consulted VTE: Lovenox Code: Full Dispo: Home, ~2 days Pending pain improves, has BM Time Spent Managing Pts Care (In Minutes): 55
[2024-07-16] MEDS: FLEET ENEMA ADULT PR ONE (14:53)
[2024-07-17 07:55] LABS: Absolute Eosinophils 0.1 K/uL (0-0.5); Absolute Lymphocytes (CBC) 3.5 K/uL (0.7-4.9); Absolute Monocytes 0.5 K/uL (0.1-1.3); Absolute Neutrophil 4.5 K/uL (1.8-8.0); Basophils % 0.3 % (0-1.3); Eosinophils % 1.2 % (0-4.4); Hematocrit 40.8 % (36.0-45.0); Hemoglobin 14.2 g/dL (12.0-15.0); MCH 32.2 pg (27.0-35.0); MCHC 34.8 g/dL (32.0-36.0); MCV 92.7 fL (80-100); MPV 7.8 fL (7.6-11.3); Neutrophils % 51.5 % (41.7-73.7); Nucleated Red Blood Cells % 0.1 % (0-0); Platelets 263 thou/uL (152-406); RBC Red Blood Cell Count 4.41 M/uL (3.86-4.86); Red Cell Distribution Width 13.5 % (12.1-15.2)
[2024-07-17 08:13] LABS: ALT/SGPT 29 U/L (13-56); Albumin 3.4 g/dL (3.4-5.0); Albumin/Globulin Ratio 0.9 (1.1-1.8); Alkaline Phosphatase 59 U/L (45-117); Anion Gap 9.9 mEq/L (5.0-15.0); BUN Blood Urea Nitrogen 9 mg/dL (7-18); Bicarbonate 28 mEq/L (21-32); Bilirubin Total 0.2 mg/dL (0.2-1.0); Globulin 3.6 g/dL (2.3-3.5); Glomerular Filtration Rate 102 ml/min (=/>90); Glucose Level 89 mg/dL (74-106); Magnesium 1.9 mg/dL (1.6-2.4); Potassium 3.9 mEq/L (3.5-5.1); Sodium Level 137 mEq/L (136-145)
[2024-07-17 08:15] LABS: AST/SGOT < 10 U/L (15-37)
--- NOTE | 2024-07-17 11:48 | P.PN ---
Date of Service: 07/17/24 Subjective: back /chest pain with some improvement - flexeril helps epigastric pain and nausea this morning - feels it's worse today scheduled for EGD today had small BM yesterday after enema still very anxious Physical Exam: GEN: Alert, oriented, anxious CV: Regular rate and rhythm, no edema Pulm: Nonlabored respirations on room air, clear bilaterally ABD: soft, moderate to severe epigastric tenderness MSK: mild-moderate tenderness inferior to left scapula, and along lower ribs Problem List: Intractable back pain, suspect MSK etiology Epigastric abdominal Pain Constipation Anxiety/Depression Hx diverticulitis (2023) on admission, presents with intractable back pain radiating to upper chest/abdomen. Also feeling constipated-hasn't had a BM in 5+ days. She was seen at [facility] ER ~07/05. CTA chest, CT abdomen were negative for acute findings at [facility]; did note scattered colonic diverticula. Discharged from ER with Protonix, zofran, dicyclomine Describes different stabbing upper abdominal pain at the time when she was seen at [facility]. She reports improvement since then but symptoms haven't completely resolved. Had episode of mild diverticulitis back in Jan 2024. Hasn't followed up with GI since then per patient-since has controlled her symptoms with diet changes Given IV decadron, ativan, toradol, diazepam in ED 07/14 - CT abd noted 2 cm right ovarian cyst likely recently ruptured, otherwise negative. CXR, abdominal u/s both negative Glycolax, senokot added for constipation 07/15 - Pain unchanged. Continues with some intermittent nausea. no BM yet. Back pain seems to be more MSK in etiology given moderate tenderness along left paraspinal muscles. Add flexeril, diclofenac topical for better pain control Add PPI, carafate Dulcolax suppository x1 added 07/16 - no BM yet feels slightly bloated epigastric pain started 07/15 back pain - point tenderness of muscle just over and inferior to L scapula continue bowel regimen continue pain meds - flexeril/diclofenac cream suspect gastritis/possible gastric ulcer GI consulted 07/17 - back pain better with flexeril epigastric pain and nauseous today continue PPI / carafate labs ok Dr. Alfaro planning for EGD today VTE: Lovenox Code: Full Dispo: Home, ~1-2 days Time Spent Managing Pts Care (In Minutes): 55
[2024-07-17] MEDS: NA CHLORIDE 0.9% 1,000 ML IV SCH (12:08)
[2024-07-17] MEDS: MIDAZOLAM HCL 2 MG/2 ML INJ ONE (15:27)
[2024-07-17] MEDS ORDERED: LIDOCAINE 1% MPF 5 ML VIAL ONE (15:31)
[2024-07-17] MEDS ORDERED: propofoL 200 MG/20 ML VIAL IV ONE (15:31)
[2024-07-17] MEDS ORDERED: FENTANYL CITR 100 MCG/2 ML ONE (15:32)
[2024-07-17] MEDS: HYDROMORPHONE HCL 1 MG/ML INJ ONE (15:57)
[2024-07-17] MEDS ORDERED: SODIUM CHLORIDE 0.9% 10ML INJ IV PRN (17:28)
[2024-07-17] MEDS: PANTOPRAZOLE 40 MG INJ IVP SCH (20:37)
--- NOTE | 2024-07-17 22:11 | CON ---
Date of Consultation: 07/17/2024 Reason For Consultation: Midepigastric pain, nausea, vomiting, intractable. History Of Present Illness: This is a 29-year-old female with history of anxiety and depres shira. The patient was admitted to the hospital due to severe midepigastric pain. She states 9/10 an d now is 9/10 as well, and she also has nausea and vomiting associated with mainly nausea more than t he vomiting. She reports 2 weeks ago she went to the hospital for stabbing pain in the stomach as we ll. She was told to see a GI doctor, but unable to see a GI doctor as of yet. She was discharged on pantoprazole with antibiotics. Past Medical History: Significant for generalized anxiety disorder, depression, spontaneous vaginal delivery in January 2014. Medicines: Include escitalopram, bupropion, Protonix. Allergies: NKDA. Social History: She is common-law marriage with boyfriend with 3 children. She vapes . S he does occasional alcohol. Family History: Father is alive, age 64, diabetes, colon polyps. Mother with diabetes, hyperte nsion, myocardial infarction at the age of 54. Physical Examination: Vital Signs: The patient's temperature of 97 degrees Fahrenheit, pulse 86, respirations 16, blood pr essure 110/70, O2 saturation 95% on room air. HEENT: Normocephalic, atraumatic. Anicteric. Pupils equal, round, and reactive to light anicteric. Nares clear. Neck: Supple. No masses. Respirations: Clear to auscultation bilaterally. Cardiac: Regular rate and rhythm. No gallops, rubs. Abdomen: Positive bowel sounds. Soft, nondistended. Pain in the midepigastric area with guarding. No rebound. No peritoneal Hyde sign. Extremities: No clubbing, cyanosis, or edema. 2+ pulses. Neurologic: Alert and oriented x3. Grossly nonfocal. 5/5 motor strength to light touch. Laboratory Data: The patient has a white count of 8.7, down from 9.7 yesterday, hemoglobin 14.4, hem atocrit 41, MCV of 93, platelet count of 263, polys of 52%, lymphocytes 41%, monocytes 6%, eosinophil s 1%. Had a PT of 10.9, INR of 1.95. The patient has a sodium 137, potassium 3.9, chloride 103, bic arb 28, BUN of 9, creatinine of 0.8, glucose 89, calcium 8.8, magnesium 1.9, total bilirubin 0.2, AST of less than 10, ALT of 29, alkaline phosphatase 59, total protein 7.0, albumin 3.4. test negative. UA was negative. Ultrasound of abdomen was unremarkable, showed no gallstones and no gal lbladder wall thickening. Biliary tree was normal, unremarkable. CT dissection protocol, 2 cm irreg ular shaped right ovarian cyst, likely represents recently ruptured. No significant free fluid. No evidence of aortic dissection or other abnormalities noted on the CT of the chest. Chest x-ray was n egative. Impression: Midepigastric pain /10, now 9/10 with nausea, vomiting. Ultrasound negative. Labs neg ative. She has a history of generalized anxiety disorder and depression. Spontaneous vaginal delive ry on 01/19. Recommendations: 1. EGD evaluation. 2. IV fluids. 3. Continue p.r.n. pain medicines, antiemetics. JOEY/CHRISTINE Voice ID: [id number] Report ID: [id number]
--- NOTE | 2024-07-18 09:36 | P.PN ---
Date of Service: 07/18/24 Subjective: feels ~same as yesterday continues with abdominal pain back pain not as severe, flexeril helps afebrile Physical Exam: GEN: anxious, NAD CV: Regular rate and rhythm, no edema Pulm: Nonlabored respirations on room air, clear bilaterally ABD: soft, moderate to severe epigastric tenderness MSK: mild-moderate tenderness inferior to left scapula, and along lower ribs Problem List: Acute Mild Gastritis and Duodenitis Possible Gastroparesis Intractable back pain, suspect MSK etiology Constipation Anxiety/Depression Hx diverticulitis (2023) on admission, presents with intractable back pain radiating to upper chest/abdomen. Also feeling constipated-hasn't had a BM in 5+ days. She was seen at [facility] ER ~07/05. CTA chest, CT abdomen were negative for acute findings at [facility]; did note scattered colonic diverticula. Discharged from ER with Protonix, zofran, dicyclomine Describes different stabbing upper abdominal pain at the time when she was seen at [facility]. She reports improvement since then but symptoms haven't completely resolved. Had episode of mild diverticulitis back in Jan 2024. Hasn't followed up with GI since then per patient-since has controlled her symptoms with diet changes Given IV decadron, ativan, toradol, diazepam in ED 07/14 - CT abd noted 2 cm right ovarian cyst likely recently ruptured, otherwise negative. CXR, abdominal u/s both negative Glycolax, senokot added for constipation 07/15 - Pain unchanged. Continues with some intermittent nausea. no BM yet. Back pain seems to be more MSK in etiology given moderate tenderness along left paraspinal muscles. Add flexeril, diclofenac topical for better pain control Add PPI, carafate Dulcolax suppository x1 added 07/16 - no BM yet feels slightly bloated epigastric pain started 07/15 back pain - point tenderness of muscle just over and inferior to L scapula continue bowel regimen continue pain meds - flexeril/diclofenac cream suspect gastritis/possible gastric ulcer GI consulted 07/17 - back pain better with flexeril epigastric pain and nauseous today continue PPI / carafate Dr. Alfaro planning for EGD today 07/18 - s/p EGD yesterday which noted mild acute gastritis, mild duodenitis, multiple diffuse gastric erosions in the antrum without active bleeding EGD also noted moderate amount of retained food in the fundus, stomach, and duodenal bulb GI recommending HIDA scan, Gastric emptying study - to be done Saturday at the earliest vs outpatient Fleet enema x1 added for constipation discussed with patient IV dilaudid would make gastroparesis worse, work on de-escalation VTE: Lovenox Code: Full Dispo: Home, ~1-2 days Pending pain/nausea improve, HIDA scan / Gastric emptying study; to be done Saturday at the earliest Time Spent Managing Pts Care (In Minutes): 55
[2024-07-18] MEDS: FLEET ENEMA ADULT PR ONE (10:31)
[2024-07-18 10:51] VITALS: O2SAT 97
[2024-07-18] MEDS: NA CHLORIDE 0.9% 1,000 ML IV SCH (12:07)
[2024-07-18] MEDS: LORAZEPAM 1 MG TABLET PO PRN (15:29)
[2024-07-18] MEDS: HYDROCODONE/APAP 7.5/325 MG TAB PO PRN (15:29)
[2024-07-18] MEDS ORDERED: HYOSCYAMINE SULF 0.125 MG TAB PO PRN (15:34)
--- NOTE | 2024-07-18 16:51 | P.PN ---
Subjective Date of Service: 07/18/24 Chief Complaint: BHARAT pain, N/V Subjective: New changes (Still with BHARAT pain, N/V. Awaiting gastric emptying scan - cannot be done until Saturday. EGD with mild gastritis / duodenitis and moderate amount of retained food in body>fundus>>bulb. SP/depression history.) Physical Examination - Vital Signs Temperature: 98.3 F Blood Pressure: 116/68 Pulse: 78 Respirations: 18 Pulse Ox (%): 97 Assessment And Plan - Current Problems (Diagnosis) (1) Epigastric abdominal pain Current Visit: Yes Status: Acute (2) Nausea & vomiting Current Visit: Yes Status: Acute (3) Retained food in stomach Current Visit: Yes Status: Acute (4) Gastritis and duodenitis Current Visit: Yes Status: Acute - Plan REC: 1) continue PPI therapy 2) gastric emptying study and then 3) HIDA scan
[2024-07-18] MEDS: HYDROMORPHONE HCL 0.5 MG/0.5 ML INJ IV PRN (19:29)
[2024-07-18] MEDS: ESCITALOPRAM OXALATE 10 MG TABLET PO SCH (19:30)
[2024-07-18 20:11] VITALS: BP 135/93; TEMP 97.9
--- NOTE | 2024-07-19 06:43 | P.DS ---
Admission Date: 07/15/24 Discharge Date: 07/18/24 Disposition: ROUTINE DISCHARGE Discharge Condition: FAIR Reason for Admission: BHARAT pain, N/V Consultations: GI - Dr. Alfaro Brief History of Present Illness: 29 yo F, PMH: anxiety and depression Patient presented with abdominal pain. She states the pain radiates to between her shoulders and causes her to feel like she cannot breathe. She states ultimately she feels as if the pain wraps around to her chest. She denies any previous instances of this happening. She did mention 2 weeks ago she went to the hospital for sharp stabbing pain in the stomach. She was told to see a GI doctor but has unable to see a GI doctor as of yet. She was discharged on pantoprazole. She denies any improvement with the drug. She denies any illicit drug use. Upon review of hospital medical records it does seem as if she was admitted in the past for ascending diverticulitis for which she was discharged on antibiotics and a PPI Hospital Course: Problem List: Acute Mild Gastritis and Duodenitis Possible Gastroparesis Intractable back pain, suspect MSK etiology Constipation Anxiety/Depression Hx diverticulitis (2023) Physician discharge instructions: Patient presented with intractable back pain associated with epigastric pain and constipation. CT abdomen noted a 2 cm right ovarian cyst likely recently ruptured, otherwise negative. Chest xray and abdominal ultrasound were negative. On exam, patient was noted to be tender to touch along her posterior thoracic muscles. Her back pain was relieved with flexeril and diclofenac cream. Given negative imaging and presentation of symptoms, suspect back pain to be more muskuloskeletal etiology. In regards to epigastric pain, she had improvement with protonix, cafarate. She did report a recent ER visit ~10 days ago at [facility] for epigastic pain. CTA chest and CT abdomen were negative for acute findings at [facility]; only noted scattered colonic diverticula. She was discharged with Protonix, zofran, dicyclomine and was advised to follow up with GI for further outpatient evaluation. Dr. Alfaro was consulted and patient underwent EGD on 07/17 which noted gastritis, gastric erosions, duodenitis, and some retained food. Dr. Alfaro recommended obtaining gastric emptying study and HIDA. In the late afternoon of 07/18, patient reported feeling ready to go home /wanting to go home, despite still needing/asking for IV dilaudid while on clear liquid diet. She was having bowel movements and able to tolerate clear liquids with medication. I discussed if still requiring IV medications to manage symptoms, she is not ready to go home, and the risk of worsening and returning to the ER would be high. She expressed understanding and wanted to see how she did in the afternoon/evening without IV pain medication and I increased the norco. At end of shift, she had requested for Dilaudid again and requested to be discharged home. The school supervisor was called and assessed the patient and discharged the patient. She reportedly plans to f/u with PCP and GI this coming Saturday, with plans to get gastric emptying study and HIDA as outpatient. Dis cussed opioid medication can interfere with the gastric emptying study, as it can delay gastric emptying, and recommended avoidance of opioid medication prior to testing. Medications: Protonix BID Carafate ACHS Zofran [place] Follow up: PCP 3-5 days GI in 2-4 weeks Please call to schedule / confirm appointments Physical Exam: GEN: orientedx3, alert, NAD CV: Regular rate and rhythm, no edema ABD: soft, moderate epigastric tenderness MSK: tenderness to palpation at inferior aspect of left scapula, along lower ribs on left Neuro: Normal speech, normal affect Vital Signs/Physical Exam: Temp Pulse Resp BP Pulse Ox 97.9 F 90 16 135/93 H 97 07/18/24 20:00 07/18/24 20:00 07/18/24 21:21 07/18/24 20:00 07/18/24 21:21 Laboratory Data at Discharge: WBC 8.70 thou/uL (4.3-10.9) 07/17/24 07:39 Hgb 14.2 g/dL (12.0-15.0) 07/17/24 07:39 Hct 40.8 % (36.0-45.0) 07/17/24 07:39 Plt Count 263 thou/uL (152-406) 07/17/24 07:39 PT 10.9 SECONDS (10-13.0) 07/14/24 17:02 INR 0.95 07/14/24 17:02 Sodium 137 mEq/L (136-145) 07/17/24 07:39 Potassium 3.9 mEq/L (3.5-5.1) 07/17/24 07:39 BUN 9 mg/dL (7-18) 07/17/24 07:39 Creatinine 0.80 mg/dL (0.55-1.02) 07/17/24 07:39 Glucose 89 mg/dL (74-106) 07/17/24 07:39 Magnesium 1.9 mg/dL (1.6-2.4) 07/17/24 07:39 Total Bilirubin 0.2 mg/dL (0.2-1.0) 07/17/24 07:39 AST < 10 U/L (15-37) L 07/17/24 07:39 ALT 29 U/L (13-56) 07/17/24 07:39 Alkaline Phosphatase 59 U/L (45-117) 07/17/24 07:39 Lipase 25 U/L (13-75) 07/15/24 07:50 Home Medications: Escitalopram Oxalate 20 tab PO BEDTIME 09/30/21 buPROPion HCL [Bupropion Xl] 300 tab PO DAILY 01/09/24 Pantoprazole Sodium [Protonix] 20 mg PO DAILY 30 Days #30 tab 01/10/24 Sucralfate [Carafate*] 1 gm PO ACHS tab 07/18/24 Cyclobenzaprine HCl [Flexeril] 5 mg PO Q8H PRN #12 tab 07/19/24 Hydrocodone 7.5/APAP 325 [[place] 7.5/325 mg] 1 tab PO Q8H PRN #15 tab 07/19/24 Hydrocodone Bit/Acetaminophen [Hydrocodon-Acetaminoph 7.5-325] 1 tab PO Q8H PRN #15 tab 07/19/24 Ondansetron [Zofran (Odt)*] 4 mg PO Q6H PRN #10 tab 07/19/24 Pantoprazole [Protonix Tab*] 40 mg PO BID 30 Days #60 tab 07/19/24 Sucralfate [Carafate] 1 gm PO ACHS 30 Days #120 tab 07/19/24 New Medications: Sucralfate [Carafate] 1 gm PO ACHS 30 Days #120 tab Cyclobenzaprine HCl [Flexeril] 5 mg PO Q8H PRN #12 tab PRN Reason: Muscle Spasms Hydrocodone Bit/Acetaminophen [Hydrocodon-Acetaminoph 7.5-325] 1 tab PO Q8H PRN #15 tab PRN Reason: Pain Scale 8-10 (Severe) Hydrocodone 7.5/APAP 325 [[place] 7.5/325 mg] 1 tab PO Q8H PRN #15 tab PRN Reason: Pain Pantoprazole [Protonix Tab*] 40 mg PO BID 30 Days #60 tab Ondansetron [Zofran (Odt)*] 4 mg PO Q6H PRN #10 tab PRN Reason: Nausea / Vomiting Physician Discharge Instructions: Physician discharge instructions: Patient presented with intractable back pain associated with epigastric pain and constipation. CT abdomen noted a 2 cm right ovarian cyst likely recently ruptured, otherwise negative. Chest xray and abdominal ultrasound were negative. On exam, patient was noted to be tender to touch along her posterior thoracic muscles. Her back pain was relieved with flexeril and diclofenac cream. Given negative imaging and presentation of symptoms, suspect back pain to be more muskuloskeletal etiology. In regards to epigastric pain, she had improvement with protonix, cafarate. She did report a recent ER visit ~10 days ago at [facility] for epigastic pain. CTA chest and CT abdomen were negative for acute findings at [facility]; only noted scattered colonic diverticula. She was discharged with Protonix, zofran, dicyclomine and was advised to follow up with GI for further outpatient evaluation. Dr. Alfaro was consulted and patient underwent EGD on 07/17 which noted gastritis, gastric erosions, duodenitis, and some retained food. Dr. Alfaro recommended obtaining gastric emptying study and HIDA. In the late afternoon of 07/18, patient reported feeling ready to go home /wanting to go home, despite still needing/asking for IV dilaudid while on clear liquid diet. She was having bowel movements and able to tolerate clear liquids with medication. I discussed if still requiring IV medications to manage symptoms, she is not ready to go home, and the risk of worsening and returning to the ER would be high. She expressed understanding and wanted to see how she did in the afternoon/evening without IV pain medication and I increased the norco. At end of shift, she had requested for Dilaudid again and requested to be discharged home. The school supervisor was called and assessed the patient and discharged the patient. She reportedly plans to f/u with PCP and GI this coming Saturday, with plans to get gastric emptying study and HIDA as outpatient. Discussed opioid medication can interfere with the gastric emptying study, as it can delay gastric emptying, and recommended avoidance of opioid medication prior to testing. Medications: Protonix BID Carafate ACHS Zofran [place] Follow up: PCP 3-5 days GI in 2-4 weeks Please call to schedule / confirm appointments Followup: Matty Upton MD [Primary Care Provider] - Time spent managing pt's care (in minutes): 45
[2024-07-19] MEDS ORDERED: BUPROPION HCL XL 150 MG TAB PO SCH (09:00)
== END 2024-07-18 22:00 | disposition home or self-care (01) | DRG 392 ==
LOC: ER 16:30 → ERHOLD 21:48 → 4TH 22:36 → OBSVTOIN 07-15 16:23
PROVIDERS: ADMIT Family Medicine; ATTEND Hospitalist
PROC: 0DB68ZX Excision of Stomach, Via Natural or Artificial Opening Endoscopic, Diagnostic (ICD-10-PCS; principal; 2024-07-17 15:15)
DX: K29.00 Acute gastritis without bleeding (principal); K59.00 Constipation, unspecified; K29.80 Duodenitis without bleeding; F41.9 Anxiety disorder, unspecified; F32.A Depression, unspecified; K31.84 Gastroparesis; N83.201 Unspecified ovarian cyst, right side; S29.012A Strain of muscle and tendon of back wall of thorax, initial encounter
CPT/HCPCS: 36415; 71045; 71275; 74175; 76705; 80048; 80053; 80076; 81003; 81025; 83690; 83735; 83880; 84484; 84703; 85025; 85610; 88305; 88312; 93005; 96374; 96375; 99285; G0378; J1100; J1171; J1200; J1650; J2003; J2250; J2405; J2470; J2704; J3010; J7030; Q9967